=== PATIENT | female | born 1975 | race African-American/Black ===

== ENCOUNTER 2016-07-05 15:47 | Emergency (ER) | payer SELFPAY ==
[2016-07-05] MEDS ORDERED: hydrOXYzine HCL TAB* 25 MG PO ONE (19:04)
[2016-07-05] MEDS ORDERED: Fluconazole 100 MG TAB* TAB PO ONE (19:04)
[2016-07-05 19:42] VITALS: BP 134/88
[2016-07-05] MEDS ORDERED: Nystatin OINT* 15 GM TOPICAL SCH (21:00)
--- NOTE | 2016-07-05 21:18 | ED ---
Van Moses Billy, scribed for Bobby Paz MD on 07/05/16 at 1902 . GI/ HPI - HPI Summary HPI Summary: Patient is a 40 year-old female coming to [facility] presenting with constant, progressive, vaginal discharge and itching for 2 weeks. She states that her symptoms began after a course of antibiotics. She reports an episode of diarrhea but otherwise has no other symptoms such as fever, nausea, or vomiting. Denies history of STD, HIV, or herpes. - History of Current Complaint Chief Complaint: EDUrogenitalProblems Time Seen by Provider: 07/05/16 18:42 Stated Complaint: SWOLLEN/ITCHY VAG Hx Obtained From: Patient Onset/Duration: Started Weeks Ago, Still Present Timing: Constant Severity: Moderate Current Severity: Moderate Pain Intensity: 8 Additional Location for Females: Vulva Pain Characteristics: Burning - itching Associated Signs and Symptoms: Positive: Diarrhea. Negative: Nausea, Vomiting, Fever Aggravating Factor(s): Nothing Alleviating Factor(s): Nothing - Allergy/Home Medications Allergies/Adverse Reactions: Allergies Allergy/AdvReac Type Severity Reaction Status Date / Time Carisoprodol [From Soma] AdvReac Headache Verified 07/05/16 16:01 PMH/Surg Hx/FS Hx/Imm Hx Cardiovascular History: Reports: Hx Hypertension - WELL CONTROLLED Denies: Hx Pacemaker/ICD Respiratory History: Reports: Hx Chronic Obstructive Pulmonary Disease (COPD) GI History: Reports: Hx Irritable Bowel Musculoskeletal History: Reports: Other Musculoskeletal History - RIGHT SHOULDER PAIN, CERVICAL DDD Sensory History: Denies: Hx Contacts or Glasses, Hx Hearing Aid Opthamlomology History: Denies: Hx Contacts or Glasses Psychiatric History: Reports: Hx Anxiety, Hx Depression - MAJOR DEPRESSION DISORDER Denies: Hx Panic Disorder - Surgical History Surgery Procedure, Year, and Place: 1992 D&C, [place]. 2008 [place]OMY, [place]. [place] [facility] [place] HARDWARE REMOVAL- PER PT THERE ARE STILL SOME SCREWS IN HER ANKLE Hx Anesthesia Reactions: No - Immunization History Date of Tetanus Vaccine: 2010 Date of Influenza Vaccine: None Infectious Disease History: No Infectious Disease History: Reports: Hx of Known/Suspected MRSA Denies: Traveled Outside the [place] in Last 30 Days - Family History Known Family History: Positive: Diabetes, Other - GRANDMOTHER HAD MANY STROKES. [place] Negative: Cardiac Disease - Social History Alcohol Use: Occasionally Alcohol Amount: SOCIALLY Hx Substance Use: Yes Substance Use Type: Reports: Marijuana - OCCASIONALLY Substance Use Comment - Amount & Last Used: see consult report Hx Tobacco Use: Yes Smoking Status (MU): Current Every Day Smoker Type: Cigarettes Amount Used/How Often: 5-10 CIGS/DAY Length of Time of Smoking/Using Tobacco: 30 YRS Have You Smoked in the Last Year: Yes Review of Systems Negative: Fever Positive: Diarrhea. Negative: Vomiting, Nausea Positive: discharge, other - vaginal itching All Other Systems Reviewed And Are Negative: Yes Physical Exam Triage Information Reviewed: Yes Vital Signs On Initial Exam: Initial Vitals Temp Pulse Resp BP Pulse Ox 98.1 F 80 16 179/110 100 07/05/16 16:02 07/05/16 16:02 07/05/16 16:02 07/05/16 16:02 07/05/16 16:02 Vital Signs Reviewed: Yes Appearance: Positive: Well-Appearing, Pain Distress - Visibly uncomfortable, has trouble sitting. Eyes: Positive: LINA ENT: Positive: Other - MMM Neck: Positive: Supple, Nontender Respiratory/Lung Sounds: Positive: Clear to Auscultation, Breath Sounds Present. Negative: Rales, Wheezes Cardiovascular: Positive: RRR, Other - No gallops., S1, S2. Negative: Murmur, Rub Abdomen Description: Positive: Nontender, Soft. 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 No signs of fluctuance or abscess, external labia majora slightly thickened. Musculoskeletal: Positive: Other - calves are soft and nontender.. Negative: Edema Left, Edema Right Neurological: Positive: Sensory/Motor Intact Psychiatric: Positive: Affect/Mood Appropriate - logical and coherent AVPU Assessment: Alert Diagnostics - Vital Signs Vital Signs Temp Pulse Resp BP Pulse Ox 07/05/16 16:02 98.1 F 80 16 179/110 100 - Laboratory Lab Statement: Any lab studies that have been ordered have been reviewed, and results considered in the medical decision making process. GIGU Course/Dx - Course Assessment/Plan: She has had 2x weeks of vaginal itching and discomfort. This followed abx use. She denies HIV or DM. We will send her to Dr. Colunga (REHABILITATION PROGRAM COORDINATOR) for follow-up but in the; supportive measures described in detail. She will return for any signs of cellulitis. Otherwise, she will follow-up with her new human resources support specialist. - Diagnoses Provider Diagnoses: Vulvovaginal candidiasis Discharge - Discharge Plan Condition: Good Disposition: HOME Prescriptions: Fluconazole 100 MG TAB* [Diflucan 100 MG TAB*] 100 mg PO DAILY #3 tab Nystatin CREAM* 1 applic TOPICAL TID #1 tube hydrOXYzine HCL TAB* [Atarax TAB*] 25 mg PO TID PRN #20 tab PRN Reason: Itching Patient Education Materials: Vulvovaginal Candidiasis (ED) Referrals: Elie Colunga MD [Medical Doctor] - The documentation as recorded by the Van edwards Billy accurately reflects the service I personally performed and the decisions made by me, Bobby Paz MD.
== END 2016-07-05 19:38 | disposition home or self-care (01) ==
LOC: ED 15:47
DX: B37.3 Candidiasis of vulva and vagina (principal); R19.7 Diarrhea, unspecified
CPT/HCPCS: 99282; A9270-GY

== ENCOUNTER 2016-08-06 19:08 | Observation (INO) | payer SELFPAY ==
[2016-08-06] MEDS ORDERED: Morphine INJ* 2 MG/ML 1 ML SYRINGE IV ONE (22:50)
[2016-08-06 23:29] LABS: Hematocrit 35 % (35-47); Hemoglobin 11.6 g/dl (12.0-16.0); Mean Corpuscular HGB Conc 33 g/dl (31-36); Mean Corpuscular Hemoglobin 30 pg (27-31); Mean Corpuscular Volume 92 fL (80-97); Mean Platelet Volume 8 um3 (7.4-10.4); Red Blood Count 3.84 10^6/ul (4.0-5.4); Red Cell Distribution Width 13 % (10.5-15); White Blood Count 3.6 10^3/ul (3.5-10.8)
[2016-08-06 23:38] LABS: Albumin 3.8 g/dL (3.2-5.2); BUN/Creatinine Ratio 15.8 (8-20); C Reactive Protein 14.51 mg/L (< 5.00); Calcium 9.2 mg/dL (8.6-10.3); EGFR African American 77.3 (>60); EGFR Non-African American 60.1 (>60); Globulin 3.9 g/dL (2-4); Potassium 3.1 mmol/L (3.5-5.0); Total Bilirubin 0.3 mg/dL (0.2-1.0); Total Protein 7.7 g/dL (6.4-8.9)
[2016-08-06] MEDS ORDERED: Iohexol 300* (CONTRAST) 10 ML SDV IV ONE (23:44)
[2016-08-06] MEDS ORDERED: oxyCODONE/Acetamin 5/325 MG* TAB PO ONE (23:44)
[2016-08-07 00:13] LABS: Erythrocyte Sed Rate 66 mm/Hr (0-14)
[2016-08-07] MEDS: Morphine INJ* 4 MG/ML 1 ML SYRINGE IV ONE ×2 (00:48→01:27)
[2016-08-07] MEDS ORDERED: HYDROmorphone* 1 MG/ML 1 ML SYR IV SLOW PU ONE (01:15)
[2016-08-07] MEDS ORDERED: diPHENhydraMINE IV* 50 MG/ML 1 ml VIAL (BENADRYL) IV ONE (01:25)
--- NOTE | 2016-08-07 01:45 | ED ---
Skin Complaint - HPI Summary HPI Summary: Patient arrives to ED with CC of multiple abscesses in the gluteal fold, on the sacral crest, 2 on the leg, 1 on the chin, 1 on the arm and 2 on the labia which have been present for weeks but has been getting worse. She states she has had this issue for 6 months and has been on 3 antibiotics. Last antibiotic >2 weeks ago. She states one course of antibiotics almost cleared up the abscesses, but doesn't know which medication it was. She states they "shrunk" but were still somewhat there. She states they are a 10/10 pain, constant and does not radiate. She has been placing towels and cloths in the area for comfort and to keep the abscesses from draining into the other abscessed openings. Denies fever, chills or other recent illness. No known hx of pilonidal, hidrenitis suppurativa. Unknown MRSA hx. - History of Current Complaint Chief Complaint: EDRashSkinAbscess Time Seen by Provider: 08/06/16 22:22 Stated Complaint: UNABLE TO SIT Hx Obtained From: Patient Onset/Duration: Started Weeks Ago Skin Exposure Onset/Duration: Weeks Ago Timing: Constant Onset Severity: Severe Current Severity: Severe Pain Intensity: 10 Pain Scale Used: 0-10 Numeric Skin Location: Diffuse - 2 raised nodular lesions over bilateral inner thighs without drainage, multiple nodular, non fluctuant in intergluteal fold with purulent and serous fluid drainage, most superficial some with extension into dermal layer, one large tense 2cm at gluteal cleft at sacrum, one raised open lesion over right forearm with drainage x 1 week, one on right side chin, 2 in labia without drainage Character: Pruritus, Pain, Redness, Raised, Painful Aggravating Symptom(s): Clothing, Wet Conditions, Touch Alleviating Symptom(s): Nothing Associated Signs & Symptoms: Drainage - Allergy/Home Medications Allergies/Adverse Reactions: Allergies Allergy/AdvReac Type Severity Reaction Status Date / Time Carisoprodol [From Soma] AdvReac Headache Verified 08/06/16 19:11 PMH/Surg Hx/FS Hx/Imm Hx Previously Healthy: Yes Endocrine/Hematology History: Denies: Hx Diabetes Cardiovascular History: Reports: Hx Hypertension - WELL CONTROLLED Denies: Hx Pacemaker/ICD Respiratory History: Reports: Hx Chronic Obstructive Pulmonary Disease (COPD) GI History: Reports: Hx Irritable Bowel History: Denies: Hx Renal Disease Musculoskeletal History: Reports: Other Musculoskeletal History - RIGHT SHOULDER PAIN, CERVICAL DDD Sensory History: Denies: Hx Contacts or Glasses, Hx Hearing Aid Opthamlomology History: Denies: Hx Contacts or Glasses Psychiatric History: Reports: Hx Anxiety, Hx Depression - MAJOR DEPRESSION DISORDER Denies: Hx Panic Disorder - Surgical History Surgery Procedure, Year, and Place: 1992 D&C, [place]. 2008 [place], [place]. [place] [facility] [place] HARD[place] REMOVAL- PER PT THERE ARE STILL SOME SCREWS IN HER ANKLE Hx Anesthesia Reactions: No - Immunization History Date of Tetanus Vaccine: 2010 Date of Influenza Vaccine: None Infectious Disease History: Yes Infectious Disease History: Reports: Hx of Known/Suspected MRSA Denies: Traveled Outside the [place] in Last 30 Days - Family History Known Family History: Positive: Diabetes, Other - GRANDMOTHER HAD MANY STROKES. [place] Negative: Cardiac Disease - Social History Occupation: Employed Full-time Lives: With Family Alcohol Use: Occasionally Alcohol Amount: SOCIALLY Hx Substance Use: Yes Substance Use Type: Reports: Marijuana - OCCASIONALLY Substance Use Comment - Amount & Last Used: see consult report Hx Tobacco Use: Yes Smoking Status (MU): Current Every Day Smoker Type: Cigarettes Amount Used/How Often: 5-10 CIGS/DAY Length of Time of Smoking/Using Tobacco: 30 YRS Have You Smoked in the Last Year: Yes Review of Systems Constitutional: Negative Eyes: Negative Cardiovascular: Negative Respiratory: Negative Positive: no symptoms reported, see HPI Positive: Arthralgia Positive: Other - 2 raised nodular lesions over bilateral inner thighs without drainage, multiple nodular, non fluctuant in intergluteal fold with purulent and serous fluid drainage, most superficial some with extension into dermal layer, one large tense 2cm at gluteal cleft at sacrum, one raised open lesion over right forearm with drainage x 1 week, one on right side chin, 2 in labia without drainage Neurological: Negative Psychological: Normal All Other Systems Reviewed And Are Negative: Yes Physical Exam Triage Information Reviewed: Yes Vital Signs On Initial Exam: Initial Vitals Temp Pulse Resp BP Pulse Ox 99.4 F 127 18 156/123 99 08/06/16 19:11 08/06/16 19:11 08/06/16 19:11 08/06/16 19:11 08/06/16 19:11 Vital Signs Reviewed: Yes Appearance: Positive: Well-Appearing, Well-Nourished, Pain Distress Skin: Positive: Warm, Other - 2 raised nodular lesions over bilateral inner thighs without drainage, multiple nodular, non fluctuant in intergluteal fold with purulent and serous fluid drainage, most superficial some with extension into dermal layer, one large tense 2cm at gluteal cleft at sacrum, one raised open lesion over right forearm with drainage x 1 week, one on right side chin, 2 in labia without drainage Head/Face: Positive: Normal Head/Face Inspection ENT: Positive: Normal ENT inspection, Hearing grossly normal Neck: Positive: Supple, Nontender Respiratory/Lung Sounds: Positive: Breath Sounds Present Cardiovascular: Positive: RRR Abdomen Description: Positive: Nontender, Soft Pelvic Exam: Positive: mass - 2 small nodules over L labia Neurological: Positive: Alert, Oriented to Person Place, Time, CN Intact II-III , Speech Normal Psychiatric: Positive: Normal Diagnostics - Vital Signs Vital Signs Temp Pulse Resp BP Pulse Ox 08/07/16 01:27 18 08/07/16 01:20 20 08/06/16 23:06 20 08/06/16 21:33 99.4 F 69 16 160/110 100 08/06/16 20:05 99.7 F 82 16 152/101 100 08/06/16 19:11 99.4 F 127 18 156/123 99 - Laboratory Lab Results: Lab Results 08/06/16 08/06/16 Range/Units 23:00 23:00 WBC 3.6 (3.5-10.8) 10^3/ul RBC 3.84 L (4.0-5.4) 10^6/ul Hgb 11.6 L (12.0-16.0) g/dl Hct 35 (35-47) % MCV 92 (80-97) fL MCH 30 (27-31) pg MCHC 33 (31-36) g/dl RDW 13 (10.5-15) % Plt Count 204 (150-450) 10^3/ul MPV 8 (7.4-10.4) um3 Neut % (Auto) 68.2 (38-83) % Lymph % (Auto) 17.4 L (25-47) % [place] % (Auto) 10.3 H (1-9) % Eos % (Auto) 3.1 (0-6) % Baso % (Auto) 1.0 (0-2) % Absolute Neuts (auto) 2.5 (1.5-7.7) 10^3/ul Absolute Lymphs (auto) 0.6 L (1.0-4.8) 10^3/ul Absolute Monos (auto) 0.4 (0-0.8) 10^3/ul Absolute Eos (auto) 0.1 (0-0.6) 10^3/ul Absolute Basos (auto) 0 (0-0.2) 10^3/ul Absolute Nucleated RBC 0 10^3/ul Nucleated RBC % 0.1 ESR 66 H (0-14) mm/Hr Sodium 135 (133-145) mmol/L Potassium 3.1 L (3.5-5.0) mmol/L Chloride 102 (101-111) mmol/L Carbon Dioxide 27 (22-32) mmol/L Anion Gap 6 (2-11) mmol/L BUN 16 (6-24) mg/dL Creatinine 1.01 H (0.51-0.95) mg/dL Est GFR ( Amer) 77.3 (>60) Est GFR (Non-Af Amer) 60.1 (>60) BUN/Creatinine Ratio 15.8 (8-20) Glucose 122 H (70-100) mg/dL Calcium 9.2 (8.6-10.3) mg/dL Total Bilirubin 0.30 (0.2-1.0) mg/dL AST 17 (13-39) U/L ALT 10 (7-52) U/L Alkaline Phosphatase 61 (34-104) U/L C-Reactive Protein 14.51 H (< 5.00) mg/L Total Protein 7.7 (6.4-8.9) g/dL Albumin 3.8 (3.2-5.2) g/dL Globulin 3.9 (2-4) g/dL Albumin/Globulin Ratio 1.0 (1-3) Result Diagrams: 08/07/16 06:31 08/07/16 06:31 Lab Statement: Any lab studies that have been ordered have been reviewed, and results considered in the medical decision making process. - CT No standard instances CT Interpretation: Positive (See Comments) CT Interpretation Completed By: Radiologist - see report Course/Dx - Course Course Of Treatment: Consulted with Dr. Aldrich regarding patient. CT pelvis ordered. See results. Pilonidal likely with infection. Patient states she has not had any luck with 2 outpatient antibiotics, with 1 which cleared up the lesions although she doesn't remember the name of the medication. LABS WNL. No fever. 2 raised nodular lesions over bilateral inner thighs without drainage , multiple nodular, non fluctuant in intergluteal fold with purulent and serous fluid drainage, most superficial some with extension into dermal layer, one large tense 2cm at gluteal cleft at sacrum, one raised open lesion over right forearm with drainage x 1 week, one on right side chin, 2 in labia without drainage. Pain not well controlled with Morphine, benadryl and oxycodone. Spoke with Dr Arevalo at 12:45am. This could be a surgical consult, but could remain an admission for IV abx and pain control. Spoke with Dr. Carlos at 1:05am who agrees to admit. Wound culture taken from right perianal area sent for results. - Differential Diagnoses - Skin Complaint Differential Diagnoses: Abscess, Cellulitis, Urticaria - Diagnoses Provider Diagnoses: Abscess, Pilonidal abscess of cleft - Physician Notifications Instructed by Provider To: Admit As Inpatient Discharge - Discharge Plan Condition: Guarded Disposition: ADMITTED TO [facility]
--- NOTE | 2016-08-07 02:46 | HP ---
H&P (Free Text) History and Physical: PCP: none Date/Time of Evaluation: 08/07/2016 0250 CC: skin infection HPI: Mrs Foster is a 40YO female HX HTN & COPD presents with ~1week of increased itching, pain, & swelling of the intergluteal area associated with fever up to 101F. She reports scant bloody drainage mainly after scratching. She has had similar issues intermittently for ~6months which improve with ABX, but then relapse. CT pelvis was read as concern for abscessed pilonidal cyst. Case was referred to Joseph Arevalo MD surgery who requested Hospitalist admission and agreed to evaluate in the AM. PMedHx HTN COPD depression Allergies Carisoprodol [From Augure] Adverse Reaction (Verified 08/06/16 19:11) Headache Ambulatory Orders Nursing to reconcile. PSurgHx L ankle FX repair section hysterectomy SocHx: 1/2PPD cigarettes, rare alcohol, denies recreational drugs; full code status FamHx: positive for HTN, DM2 ROS: as above, otherwise reviewed and all were negative Constitutional: NAD, normally developed, well-nourished black female vitals: Vital Signs Temp 37.4 C 08/06/16 21:33 Pulse 88 08/07/16 02:00 Resp 18 08/07/16 01:27 BP 171/90 08/07/16 02:00 Pulse Ox 98 08/07/16 02:00 Intake & Output 08/06/16 08/06/16 08/07/16 11:59 23:59 11:59 Intake Total 50 Balance 50 Weight 68.039 kg Intake: IV Fluids 50 HEENM: atraumatic; sclera: non-icteric; hearing: intact; oropharynx: clear Neck: soft tissue: non-tender; thyroid: normal Pulmonary: clear to auscultation bilaterally, good aeration, no accessory muscle use CV: RR/RR, normal S1S2, no carotid bruit, no jugular venous distention, 2+ B DP/ PT, no edema Abdominal: soft, non-distended, non-tender, no rebound/guarding/rigidity, normoactive bowel sounds, no hepatosplenomegaly or masses, no costovertebral angle tenderness; intergluteal fold with too numerous to count partial- thickness excoriations, inferior L medial gluteus with area of painful induration, positive malodor, no overt discharge Musculoskeletal: general: grossly intact; gait: stable Integumental: as above, otherwise normal appearance and texture Psychiatric orientation: AA&O to PPS affect: calm mood: cooperative eye contact: fair to good content: reliable responses: timely insight: fair Testing: Lab Results 08/06/16 08/06/16 Range/Units 23:00 23:00 WBC 3.6 (3.5-10.8) 10^3/ul RBC 3.84 L (4.0-5.4) 10^6/ul Hgb 11.6 L (12.0-16.0) g/dl Hct 35 (35-47) % MCV 92 (80-97) fL MCH 30 (27-31) pg MCHC 33 (31-36) g/dl RDW 13 (10.5-15) % Plt Count 204 (150-450) 10^3/ul MPV 8 (7.4-10.4) um3 Neut % (Auto) 68.2 (38-83) % Lymph % (Auto) 17.4 L (25-47) % [place] % (Auto) 10.3 H (1-9) % Eos % (Auto) 3.1 (0-6) % Baso % (Auto) 1.0 (0-2) % Absolute Neuts (auto) 2.5 (1.5-7.7) 10^3/ul Absolute Lymphs (auto) 0.6 L (1.0-4.8) 10^3/ul Absolute Monos (auto) 0.4 (0-0.8) 10^3/ul Absolute Eos (auto) 0.1 (0-0.6) 10^3/ul Absolute Basos (auto) 0 (0-0.2) 10^3/ul Absolute Nucleated RBC 0 10^3/ul Nucleated RBC % 0.1 ESR 66 H (0-14) mm/Hr Sodium 135 (133-145) mmol/L Potassium 3.1 L (3.5-5.0) mmol/L Chloride 102 (101-111) mmol/L Carbon Dioxide 27 (22-32) mmol/L Anion Gap 6 (2-11) mmol/L BUN 16 (6-24) mg/dL Creatinine 1.01 H (0.51-0.95) mg/dL Est GFR ( Amer) 77.3 (>60) Est GFR (Non-Af Amer) 60.1 (>60) BUN/Creatinine Ratio 15.8 (8-20) Glucose 122 H (70-100) mg/dL Calcium 9.2 (8.6-10.3) mg/dL Total Bilirubin 0.30 (0.2-1.0) mg/dL AST 17 (13-39) U/L ALT 10 (7-52) U/L Alkaline Phosphatase 61 (34-104) U/L C-Reactive Protein 14.51 H (< 5.00) mg/L Total Protein 7.7 (6.4-8.9) g/dL Albumin 3.8 (3.2-5.2) g/dL Globulin 3.9 (2-4) g/dL Albumin/Globulin Ratio 1.0 (1-3) CT pelvis W, personally reviewed: IMPRESSION: Nonspecific presacral 2.4 x 2.2 x 1.8cm complex ovoid subcutaneous process is suspicious for pilonidal cyst, subcutaneous boil or superficial subcutaneous abscess with a moderate amount of surrounding subcutaneous 9 x 7 x 2cm edema consistent with surrounding tissue cellulitis. Impression: 40F presenting with complex abscess ? pilonidal cyst with intractable pain DIAGNOSIS & PLAN Primary pilonidal abscess : IVFs : IV vancomycin pending CX or immunoassay identification : pain control : Joseph Arevalo MD surgery consulted by ED, will evaluate in AM hypoKalemia : replete & recheck Secondary HTN : elevated : continue lisinopril : PRN hydralazine COPD : albuterol nebs PRN Admission Rational: observation for possible pilonidal abscess DVTp: SALINA Code Status: full
[2016-08-07] MEDS ORDERED: Melatonin (NF) 3 MG TAB PO PRN (03:37)
[2016-08-07] MEDS ORDERED: Albuterol 2.5 MG/3 ML NEB.SOL* (0.083%) INH PRN (03:37)
[2016-08-07] MEDS ORDERED: Acetaminophen TAB* 325 MG PO PRN (03:37)
[2016-08-07] MEDS ORDERED: Ondansetron INJ* 2 MG/ML VIAL IV PRN (03:37)
[2016-08-07] MEDS ORDERED: Silver Sulfadiazine 1%* 20 GM TOPICAL ONE (03:44)
[2016-08-07] MEDS ORDERED: Vancomycin per Pharmacy* NOTE FOLLOW UP PRN (03:46)
[2016-08-07] MEDS: Ketorolac INJ* 15 MG/ML 1 ML VIAL IV PRN ×3 (03:54→17:47)
[2016-08-07] MEDS: HYDROmorphone* 1 MG/ML 1 ML SYR IV PRN ×5 (03:55→21:32)
[2016-08-07] MEDS ORDERED: Vancomycin(*) 1,000 MG in NS 0.9% 250 ML* 250 ML IVPB ONE (04:00)
[2016-08-07] MEDS: NS 0.9% 1000 ML* 1,000 ML IV SCH ×2 (04:17→12:20)
[2016-08-07] MEDS: Omeprazole CAP* 20 MG PO SCH (06:09)
[2016-08-07] MEDS: Nicotine Inhaler* 10 MG AMP INH PRN ×2 (06:09→13:35)
[2016-08-07] MEDS: Mouth Piece, Nicotine* 1 EACH CARTRIDGE ONE ×2 (06:11→13:35)
[2016-08-07 07:25] LABS: Hematocrit 32 % (35-47); Hemoglobin 10.7 g/dl (12.0-16.0); Mean Corpuscular HGB Conc 33 g/dl (31-36); Mean Corpuscular Hemoglobin 31 pg (27-31); Mean Corpuscular Volume 93 fL (80-97); Mean Platelet Volume 8 um3 (7.4-10.4); Red Blood Count 3.44 10^6/ul (4.0-5.4); Red Cell Distribution Width 13 % (10.5-15); White Blood Count 4.1 10^3/ul (3.5-10.8)
[2016-08-07 07:37] LABS: BUN/Creatinine Ratio 13.8 (8-20); Calcium 8.5 mg/dL (8.6-10.3); EGFR Non-African American 65.3 (>60)
--- NOTE | 2016-08-07 07:58 | RAD ---
CLINICAL HISTORY: Sacral decubitus ulcer COMPARISON: CT dated February 07, 2014 TECHNIQUE: Multiple contiguous axial CT scans were obtained of the lower abdomen and pelvis in the prone position after the administration of intravenous contrast. Coronal and sagittal multiplanar reformations are submitted for review. The patient received 91 mL Omnipaque 300. FINDINGS: The visualized portions of the solid abdominal organs are grossly normal in appearance. The visualized portions of the kidneys are normal in appearance without focal mass, calcification or signs of hydronephrosis. There are fluid-filled loops of transverse colon seen. Small bowel is not pathologically dilated. There is no gross retroperitoneal or mesenteric lymphadenopathy in the visualized portions of the abdomen. The mildly calcified lower abdominal aorta is normal in course and diameter. The arterial and venous structures of the pelvis and upper thighs are normal in size and morphology. There is infiltration of the subcutaneous fat overlying the sacrum. Overlying the right buttock (image 46) there is increased attenuation of the dermis and superficial subcutaneous tissue. There is no evidence of "tunneling" or drainable subcutaneous abscess. There are no signs of osteomyelitis in the visualized bones. IMPRESSION: Superficial induration of the subcutaneous tissue overlying the buttock and sacrum as described above.
[2016-08-07] MEDS ORDERED: Pneumococcal Vac Polyvalent* 0.5 ML VIAL IM ONE (09:00)
[2016-08-07] MEDS ORDERED: Potassium Chlor TAB* 20 MEQ TAB.ER PO ONE (09:00)
[2016-08-07] MEDS ORDERED: KCL 20 MEQ/100 ML IVPREMIX* 20 MEQ/100 ML BAG IV ONE (10:00)
--- NOTE | 2016-08-07 10:55 | PN ---
Progress Note - Progress Note Note: Brief Surgery Note: (consult dictated) S: 6 mo hx of recurrent buttock and perineal boils (previous + MRSA), now w/ 1 wk hx of worsening pain and swelling in the upper gluteal cleft area. There has been no drainage from this area. She has felt feverish. There is a past + HIV test which she did not want to talk about, stating that it was taken w/o her consent, and her is unaware. O: Vital Signs - 8 hr 08/07/16 08/07/16 08/07/16 03:00 03:30 03:55 Temperature Pulse Rate 74 65 Respiratory 18 Rate Blood Pressure 176/96 148/95 (mmHg) O2 Sat by Pulse 100 100 Oximetry 08/07/16 08/07/16 08/07/16 04:00 04:30 05:00 Temperature Pulse Rate 65 63 Respiratory Rate Blood Pressure 156/95 172/95 156/107 (mmHg) O2 Sat by Pulse 100 100 Oximetry 08/07/16 08/07/16 08/07/16 05:22 05:38 05:48 Temperature 98.5 F 98.5 F Pulse Rate 59 59 Respiratory 18 16 16 Rate Blood Pressure 144/98 144/98 (mmHg) O2 Sat by Pulse 100 100 Oximetry 08/07/16 08/07/16 08/07/16 06:12 06:22 07:51 Temperature 98.1 F Pulse Rate 55 Respiratory 18 18 16 Rate Blood Pressure 129/79 (mmHg) O2 Sat by Pulse 100 Oximetry PE: area as described above w/ multiple skin lesions c/w abscesses at various stages of evolution. Most of these area already open, some draining. There is one area just inferior to the R buttock which is fluctuant. I offered to drain this at bedside w/ local, but she refused, preferring to use warm compresses and let this drain spontaneously. The area at the top of the gluteal cleft is indurated and very tender, but w/o fluctuance. It does not appear similar to the other areas inferiorly. CT was reviewed. It is not ready for I&D. A/P: mult likely MRSA abscesses in the buttocks and perineal areas; separate pre -sacral area, likely evolving abscess which may require drainage at some point. Would continue w/ IV abx, pain control, and local measures. Will d/w Dr. Arevalo and follow.
[2016-08-07] MEDS: Silver Sulfadiazine 1%* 20 GM TOPICAL SCH ×2 (13:02→21:23)
[2016-08-07] MEDS: Vancomycin(*) 1,000 MG in NS 0.9% 250 ML* 250 ML IVPB SCH ×2 (13:12→21:13)
[2016-08-07] MEDS ORDERED: Mouth Piece, Nicotine* 1 EACH CARTRIDGE ONE (13:33)
--- NOTE | 2016-08-07 17:23 | PN ---
Subjective Date of Service: 08/07/16 Interval History: . Patient evaluated at the bedside. She reports she is having pain at the top of her left glute, reports is feels very swollen and tender. Pt denies fever or chills. Reports good appetite with no N/V/D. Patient was open about discussing her diagnoses of HIV. She broke down and was very tearful. She reports her and family does not know and wants to keep it that way for now. She is not close to her family in [facility] where she grew up. She has only been for a year and is worried her would leave her. She reports she uses condom when sexually active with her . She reports she has "lost weight" the last 6 months, reports recurrent wound and abscess on glutes. She is very upset about getting tested without her consent and wishes she didnt know. She has refused care by ID since being diagnosed but now agrees to meet with Dr. Ewing and start therapy. She is worried about health insurance and coverage of treatment. Objective Active Medications: Acetaminophen (Tylenol Tab*) 650 mg PO Q6H PRN PRN Reason: FEVER/PAIN Albuterol (Ventolin 2.5 Mg/3 Ml Neb.Patricia*) 2.5 mg INH Q2H PRN PRN Reason: SOB/WHEEZING Hydromorphone HCl (Dilaudid Iv*) 1 mg IV Q3H PRN PRN Reason: PAIN Last Admin: 08/07/16 13:25 Dose: 1 mg Sodium Chloride (Ns 0.9% 1000 Ml*) 1,000 mls @ 125 mls/hr IV PER RATE [facility] Last Admin: 08/07/16 12:20 Dose: 125 mls/hr Vancomycin HCl 1,000 mg/ (Sodium Chloride) 250 mls @ 166.667 mls/hr IVPB Q8H [facility] Last Admin: 08/07/16 13:12 Dose: 166.667 mls/hr Ketorolac Tromethamine (Toradol Inj*) 15 mg IV Q6H PRN PRN Reason: PAIN Last Admin: 08/07/16 09:51 Dose: 15 mg Melatonin (Melatonin (Nf)) 3 mg PO BEDTIME PRN; Protocol PRN Reason: Sleep Nicotine (Nicotine Inhaler*) 10 mg INH Q2H PRN PRN Reason: CRAVING Last Admin: 08/07/16 13:35 Dose: 10 mg Omeprazole (Prilosec Cap*) 20 mg PO DAILY@0600 [facility] Last Admin: 08/07/16 06:09 Dose: 20 mg Ondansetron HCl (Zofran Inj*) 4 mg IV Q6H PRN PRN Reason: NAUSEA Last Admin: 08/07/16 05:20 Dose: 4 mg Pharmacy Consult (Vancomycin Per Pharmacy*) 1 note FOLLOW UP . PRN PRN Reason: PER PROTOCOL Pharmacy Profile Note (Vancomycin Trough Check) 1 note FOLLOW UP 0430 [facility] Stop: 08/08/16 04:59 Silver Sulfadiazine (Silvadine 1%*) 1 applic TOPICAL BID [facility] Last Admin: 08/07/16 13:02 Dose: 1 applic Vital Signs 08/07/16 08/07/16 08/07/16 03:55 04:00 04:30 Temperature Pulse Rate 65 63 Respiratory 18 Rate Blood Pressure 156/95 172/95 (mmHg) O2 Sat by Pulse 100 100 Oximetry 08/07/16 08/07/16 08/07/16 05:00 05:22 05:38 Temperature 98.5 F Pulse Rate 59 Respiratory 18 16 Rate Blood Pressure 156/107 144/98 (mmHg) O2 Sat by Pulse 100 Oximetry 08/07/16 08/07/16 08/07/16 05:48 06:12 06:22 Temperature 98.5 F Pulse Rate 59 Respiratory 16 18 18 Rate Blood Pressure 144/98 (mmHg) O2 Sat by Pulse 100 Oximetry 08/07/16 08/07/16 08/07/16 07:51 08:00 09:48 Temperature 98.1 F Pulse Rate 55 Respiratory 16 18 18 Rate Blood Pressure 129/79 (mmHg) O2 Sat by Pulse 100 Oximetry 08/07/16 08/07/16 08/07/16 10:48 12:13 13:25 Temperature 98.1 F Pulse Rate 57 Respiratory 18 16 18 Rate Blood Pressure 134/87 (mmHg) O2 Sat by Pulse 98 Oximetry 08/07/16 08/07/16 14:25 16:13 Temperature 97.9 F Pulse Rate 60 Respiratory 16 16 Rate Blood Pressure 134/85 (mmHg) O2 Sat by Pulse 100 Oximetry Oxygen Devices in Use Now: None Appearance: 40 yo female laying in bed A+O x3 in NAD Eyes: No Scleral Icterus, PERRLA Ears/Nose/Mouth/Throat: NL Teeth, Lips, Gums, Mucous Membranes Moist Neck: NL Appearance and Movements; NL JVP Respiratory: Symmetrical Chest Expansion and Respiratory Effort, Clear to Auscultation Cardiovascular: NL Sounds; No Murmurs; No JVD, RRR, No Edema Abdominal: NL Sounds; No Tenderness; No Distention Extremities: No Edema, No Clubbing, Cyanosis Skin: - - multiple wounds on buttock in different stages of healing - left top glute has red, tender firm area, no drainge noted. Neurological: Alert and Oriented x 3, NL Sensation, NL Gait, NL Muscle Strength and Tone Lines/Tubes/Other Access: Clean, Dry and Intact Peripheral IV Nutrition: Taking PO's Result Diagrams: 08/07/16 06:31 08/07/16 06:31 Additional Lab and Data: Lab Results 08/06/16 08/06/16 Range/Units 23:00 23:00 WBC 3.6 (3.5-10.8) 10^3/ul RBC 3.84 L (4.0-5.4) 10^6/ul Hgb 11.6 L (12.0-16.0) g/dl Hct 35 (35-47) % MCV 92 (80-97) fL MCH 30 (27-31) pg MCHC 33 (31-36) g/dl RDW 13 (10.5-15) % Plt Count 204 (150-450) 10^3/ul MPV 8 (7.4-10.4) um3 Neut % (Auto) 68.2 (38-83) % Lymph % (Auto) 17.4 L (25-47) % [place] % (Auto) 10.3 H (1-9) % Eos % (Auto) 3.1 (0-6) % Baso % (Auto) 1.0 (0-2) % Absolute Neuts (auto) 2.5 (1.5-7.7) 10^3/ul Absolute Lymphs (auto) 0.6 L (1.0-4.8) 10^3/ul Absolute Monos (auto) 0.4 (0-0.8) 10^3/ul Absolute Eos (auto) 0.1 (0-0.6) 10^3/ul Absolute Basos (auto) 0 (0-0.2) 10^3/ul Absolute Nucleated RBC 0 10^3/ul Nucleated RBC % 0.1 ESR 66 H (0-14) mm/Hr Sodium 135 (133-145) mmol/L Potassium 3.1 L (3.5-5.0) mmol/L Chloride 102 (101-111) mmol/L Carbon Dioxide 27 (22-32) mmol/L Anion Gap 6 (2-11) mmol/L BUN 16 (6-24) mg/dL Creatinine 1.01 H (0.51-0.95) mg/dL Est GFR ( Amer) 77.3 (>60) Est GFR (Non-Af Amer) 60.1 (>60) BUN/Creatinine Ratio 15.8 (8-20) Glucose 122 H (70-100) mg/dL Calcium 9.2 (8.6-10.3) mg/dL Total Bilirubin 0.30 (0.2-1.0) mg/dL AST 17 (13-39) U/L ALT 10 (7-52) U/L Alkaline Phosphatase 61 (34-104) U/L C-Reactive Protein 14.51 H (< 5.00) mg/L Total Protein 7.7 (6.4-8.9) g/dL Albumin 3.8 (3.2-5.2) g/dL Globulin 3.9 (2-4) g/dL Albumin/Globulin Ratio 1.0 (1-3) Assess/Plan/Problems-Billing Assessment: 40 yo female with PMH of HTN, COPD, + HIV test in which pt refuses to believe or receive treatment, hx of recurrent buttock & perineal boils (hx of MRSA) who presented to the emergency department on 08/07 with c/o increased itching pain & swelling of the intergluteal area with fever 101. - Patient Problems (1) Abscess Comment: - recurrent gluteal abscess with hx of + MRSA wound cx in the past. Surgical team following - plan for warm compresses and re-velauated need for I&D tomorrow. Send wound cx when drains - continue Vanco - ID consult (2) HIV (human immunodeficiency virus infection) Comment: - dx in 11/2015 and has refused treatment or acknowlegdement. Now agrees to meet with Dr. Ewing. and family do not know. - Check CD4 count - social work consult (3) COPD (chronic obstructive pulmonary disease) Comment: - controlled. continue nebs and inhalers prn (4) Hypertension Comment: - controlled. Restart home lisinopril and norvasc (5) Full code status (6) DVT prophylaxis Comment: - TEDs. Encourage ambulation Status and Disposition: inpatient with abscess with possible need for I&D. Surgery following. Home when medically stable
--- NOTE | 2016-08-07 21:01 | CONS ---
SURGICAL CONSULT NOTE: DATE OF CONSULT: 08/07/16 ATTENDING SURGEON: Shaquille Arevalo MD CHIEF COMPLAINT: Pilonidal abscess? HISTORY OF PRESENT ILLNESS: This is a 40-year-old female who for the past 6 months has had intermittent sores in the buttock and perineal area. These would typically and drain spontaneously. She was seen in the ED in June for the same and cultures were positive for MRSA. She has also had MRSA positive cultures from other areas including both axillae. In addition to pain and drainage in these areas, she reports pain in the upper gluteal cleft, which prompted the current presentation. This has been increasingly painful and swollen over the past week, though has not had any associated drainage thus far. She has felt feverish. She was admitted last evening to the hospitalist service and cultures were taken and IV vancomycin initiated. PAST MEDICAL HISTORY: Significant for hypertension. She has had a positive HIV test in the recent past, but did not want to discuss it saying it that she was tested without her consent and that her is not aware of the test results. PAST SURGICAL HISTORY: Subtotal hysterectomy for benign disease and x1. CURRENT MEDICATIONS: None (primarily related to lack of primary care provider and followup). DRUG ALLERGIES: SOMA (GI upset). PHYSICAL EXAMINATION: Vital Signs: Temperature 98.1, blood pressure 129/79, pulse 55, respirations 16. General: Well-nourished, well-developed - [place] female, in mild distress. Stated that pain has been as high as 10-1/2/ 10. Exam is otherwise limited to the area described above including multiple skin lesions consistent with MRSA abscesses at various stages of evolution in the groin and both buttocks and the perineal area. Most of these are already open and some draining. There is one area just inferior to the right buttock, which is fluctuant and tender. This was recommended for I and D, but the patient refused stating that she preferred to use warm compresses and let this drain spontaneously. The area of the superior gluteal cleft is indurated and tender over the area measuring approximately 6 cm but without any actual skin lesions. There is no fluctuance. It does not appear similar to the other areas inferiorly. The CT scan obtained on admission was reviewed, which showed fatty infiltration in that area, but no defined abscess. IMPRESSION: Multiple likely MRSA positive abscesses in the buttocks and perineal areas most having spontaneously drained and requiring no further surgical intervention. The upper gluteal cleft area may represent an evolving abscess, which may require drainage at some point. At the present time, would continue with local wound measures, pain control, and IV antibiotics. Case will be discussed with Dr. Arevalo and we will follow with recheck in the morning and I and D as indicated. BRYSON LAN CC: [facility]* [id number]/[facility] #: [id number] ALEKSEY
[2016-08-07] MEDS ORDERED: diPHENhydraMINE PO* 25 MG PO PRN (21:57)
[2016-08-08] MEDS: HYDROmorphone* 1 MG/ML 1 ML SYR IV PRN ×2 (00:41→04:07)
[2016-08-08] MEDS: Ketorolac INJ* 15 MG/ML 1 ML VIAL IV PRN (00:43)
[2016-08-08] MEDS: NS 0.9% 1000 ML* 1,000 ML IV SCH (00:45)
[2016-08-08] MEDS ORDERED: Vancomycin Trough Check NOTE FOLLOW UP SCH (04:30)
[2016-08-08 04:54] LABS: Hematocrit 30 % (35-47); Hemoglobin 10.1 g/dl (12.0-16.0); Mean Corpuscular HGB Conc 33 g/dl (31-36); Mean Corpuscular Hemoglobin 31 pg (27-31); Mean Corpuscular Volume 93 fL (80-97); Mean Platelet Volume 7 um3 (7.4-10.4); Red Blood Count 3.28 10^6/ul (4.0-5.4); Red Cell Distribution Width 13 % (10.5-15); White Blood Count 3.7 10^3/ul (3.5-10.8)
[2016-08-08 05:09] LABS: BUN/Creatinine Ratio 9.9 (8-20); Calcium 8.2 mg/dL (8.6-10.3); EGFR African American 99.7 (>60); EGFR Non-African American 77.5 (>60); Potassium 3.7 mmol/L (3.5-5.0)
[2016-08-08] MEDS: Omeprazole CAP* 20 MG PO SCH (05:37)
[2016-08-08] MEDS: Vancomycin(*) 1,000 MG in NS 0.9% 250 ML* 250 ML IVPB SCH ×2 (05:38→12:58)
[2016-08-08] MEDS ORDERED: oxyCODONE/Acetamin 5/325 MG* TAB ONE (08:57)
[2016-08-08] MEDS ORDERED: oxyCODONE/Acetamin 5/325 MG* TAB PO PRN ×3 (08:58→09:15)
[2016-08-08] MEDS ORDERED: amLODIPine TAB* 5 MG PO SCH (09:00)
[2016-08-08] MEDS ORDERED: Lisinopril TAB* 5 MG PO SCH (09:00)
--- NOTE | 2016-08-08 09:02 | PN ---
Subjective Date of Service: 08/08/16 Interval History: pt reports her wound/abscess feels much better today and today is the first day she can sit on her bottom without intense pain. She denies fever/chills. Reports good appetite, no N/V/D. She reports hx of vaginal yeast infection about a month ago and was prescribed 3 diflucan which she reports took care of the white discharge but she has had continued vaginal itching. She denies any ulcers or pain in her mouth. Objective Active Medications: Acetaminophen (Tylenol Tab*) 650 mg PO Q6H PRN PRN Reason: FEVER/PAIN Albuterol (Ventolin 2.5 Mg/3 Ml Neb.Patricia*) 2.5 mg INH Q2H PRN PRN Reason: SOB/WHEEZING Amlodipine Besylate (Norvasc Tab*) 5 mg PO QAM COUNTS INCLUDE 234 BEDS AT THE [facility] Diphenhydramine HCl (Benadryl Po*) 25 mg PO Q6H PRN PRN Reason: ITCHING Last Admin: 08/07/16 22:59 Dose: 25 mg Hydromorphone HCl (Dilaudid Iv*) 1 mg IV Q3H PRN PRN Reason: PAIN Last Admin: 08/08/16 04:07 Dose: 1 mg Sodium Chloride (Ns 0.9% 1000 Ml*) 1,000 mls @ 125 mls/hr IV PER RATE COUNTS INCLUDE 234 [facility]EDS [facility] Last Admin: 08/08/16 00:45 Dose: 125 mls/hr Vancomycin HCl 1,000 mg/ (Sodium Chloride) 250 mls @ 166.667 mls/hr IVPB Q8H COUNTS INCLUDE 234 BEDS AT THE [facility] Last Admin: 08/08/16 05:38 Dose: 166.667 mls/hr Ketorolac Tromethamine (Toradol Inj*) 15 mg IV Q6H PRN PRN Reason: PAIN Last Admin: 08/08/16 00:43 Dose: 15 mg Lisinopril (Prinivil Tab*) 2.5 mg PO DAILY COUNTS INCLUDE 234 BEDS AT THE [facility] Melatonin (Melatonin (Nf)) 3 mg PO BEDTIME PRN; Protocol PRN Reason: Sleep Nicotine (Nicotine Inhaler*) 10 mg INH Q2H PRN PRN Reason: CRAVING Last Admin: 08/07/16 13:35 Dose: 10 mg Omeprazole (Prilosec Cap*) 20 mg PO DAILY@0600 [facility]S [facility] 234 [facility]EDS [facility] Last Admin: 08/08/16 05:37 Dose: 20 mg Ondansetron HCl (Zofran Inj*) 4 mg IV Q6H PRN PRN Reason: NAUSEA Last Admin: 08/07/16 05:20 Dose: 4 mg Pharmacy Consult (Vancomycin Per Pharmacy*) 1 note FOLLOW UP . PRN PRN Reason: PER PROTOCOL Silver Sulfadiazine (Silvadine 1%*) 1 applic TOPICAL BID [facility] Last Admin: 08/07/16 21:23 Dose: Not Given Vital Signs 08/08/16 08/08/16 08/08/16 00:20 00:41 00:55 Temperature 99.2 F 98.7 F Pulse Rate 53 71 Respiratory 16 18 Rate Blood Pressure 164/97 148/83 (mmHg) O2 Sat by Pulse 100 Oximetry 08/08/16 08/08/16 08/08/16 00:59 01:41 04:07 Temperature Pulse Rate Respiratory 16 16 16 Rate Blood Pressure (mmHg) O2 Sat by Pulse Oximetry 08/08/16 08/08/16 04:17 05:07 Temperature 98.4 F Pulse Rate 67 Respiratory 16 16 Rate Blood Pressure 138/89 (mmHg) O2 Sat by Pulse 100 Oximetry Oxygen Devices in Use Now: None Appearance: 40 yo female laying in bed in NAD. A+O x3 Eyes: No Scleral Icterus, PERRLA Ears/Nose/Mouth/Throat: NL Teeth, Lips, Gums, Clear Oropharnyx, Mucous Membranes Moist, - - no mouth ulcers or white patches noted Neck: NL Appearance and Movements; NL JVP Respiratory: Symmetrical Chest Expansion and Respiratory Effort, Clear to Auscultation Cardiovascular: NL Sounds; No Murmurs; No JVD, RRR, No Edema Abdominal: NL Sounds; No Tenderness; No Distention Extremities: No Edema, No Clubbing, Cyanosis Skin: - - upper left glute Neurological: Alert and Oriented x 3, NL Sensation, NL Gait, NL Muscle Strength and Tone Result Diagrams: 08/08/16 04:41 08/08/16 04:41 Additional Lab and Data: Lab Results 08/06/16 08/06/16 Range/Units 23:00 23:00 WBC 3.6 (3.5-10.8) 10^3/ul RBC 3.84 L (4.0-5.4) 10^6/ul Hgb 11.6 L (12.0-16.0) g/dl Hct 35 (35-47) % MCV 92 (80-97) fL MCH 30 (27-31) pg MCHC 33 (31-36) g/dl RDW 13 (10.5-15) % Plt Count 204 (150-450) 10^3/ul MPV 8 (7.4-10.4) um3 Neut % (Auto) 68.2 (38-83) % Lymph % (Auto) 17.4 L (25-47) % [place] % (Auto) 10.3 H (1-9) % Eos % (Auto) 3.1 (0-6) % Baso % (Auto) 1.0 (0-2) % Absolute Neuts (auto) 2.5 (1.5-7.7) 10^3/ul Absolute Lymphs (auto) 0.6 L (1.0-4.8) 10^3/ul Absolute Monos (auto) 0.4 (0-0.8) 10^3/ul Absolute Eos (auto) 0.1 (0-0.6) 10^3/ul Absolute Basos (auto) 0 (0-0.2) 10^3/ul Absolute Nucleated RBC 0 10^3/ul Nucleated RBC % 0.1 ESR 66 H (0-14) mm/Hr Sodium 135 (133-145) mmol/L Potassium 3.1 L (3.5-5.0) mmol/L Chloride 102 (101-111) mmol/L Carbon Dioxide 27 (22-32) mmol/L Anion Gap 6 (2-11) mmol/L BUN 16 (6-24) mg/dL Creatinine 1.01 H (0.51-0.95) mg/dL Est GFR ( Amer) 77.3 (>60) Est GFR (Non-Af Amer) 60.1 (>60) BUN/Creatinine Ratio 15.8 (8-20) Glucose 122 H (70-100) mg/dL Calcium 9.2 (8.6-10.3) mg/dL Total Bilirubin 0.30 (0.2-1.0) mg/dL AST 17 (13-39) U/L ALT 10 (7-52) U/L Alkaline Phosphatase 61 (34-104) U/L C-Reactive Protein 14.51 H (< 5.00) mg/L Total Protein 7.7 (6.4-8.9) g/dL Albumin 3.8 (3.2-5.2) g/dL Globulin 3.9 (2-4) g/dL Albumin/Globulin Ratio 1.0 (1-3) Assess/Plan/Problems-Billing Assessment: 40 yo female with PMH of HTN, COPD, + HIV test in which pt refuses to believe or receive treatment, hx of recurrent buttock & perineal boils (hx of MRSA) who presented to the emergency department on 08/07 with c/o increased itching pain & swelling of the intergluteal area with fever 101. - Patient Problems (1) Abscess Comment: - recurrent gluteal abscess with hx of + MRSA wound cx in the past. Improvement is affected area today. Surgical team following and no need for I&D and can go home from a surgical standpoint - Wound cx still pending - no organisms seen at this point - ID consult - okk to DC to home on Bactrim DS BID x 10 days (2) HIV (human immunodeficiency virus infection) Comment: - dx in 11/2015 and has refused treatment or acknowledgment. Now agrees to meet with Dr. Ewing. and family do not know and pt refuses to tell them at this point. - Check CD4 count - still pending - pt refusing SW consult - Plan to f/u with ID next week. (3) COPD (chronic obstructive pulmonary disease) Comment: - controlled. continue nebs and inhalers prn (4) Hypertension Comment: - controlled. Restart home lisinopril and norvasc (5) Tobacco abuse Comment: - smoking cessation - nicotine supplementation (6) Full code status (7) DVT prophylaxis Comment: - TEDs. Encourage ambulation Status and Disposition: inpatient Surgery and ID following. Home today
[2016-08-08] MEDS: Silver Sulfadiazine 1%* 20 GM TOPICAL SCH (09:10)
--- NOTE | 2016-08-08 09:29 | PN ---
Progress Note - Progress Note Note: Surgery Progress: S: Feels better. The lower R Buttock lesion drained spontaneously yesterday and feels better. She still has some pain in the area of the upper gluteal cleft. O: Vital Signs - 8 hr 08/08/16 08/08/16 08/08/16 01:41 04:07 04:17 Temperature 98.4 F Pulse Rate 67 Respiratory 16 16 16 Rate Blood Pressure 138/89 (mmHg) O2 Sat by Pulse 100 Oximetry 08/08/16 08/08/16 05:07 09:03 Temperature Pulse Rate Respiratory 16 16 Rate Blood Pressure (mmHg) O2 Sat by Pulse Oximetry Gluteal cleft area: swelling (increased, and more defined) w/ induration and tenderness (less vs 3/2); buttock lesions appear to be improving, including the one that has drained in the inferior R buttock. C&S still pend A: mult likely MRSA + buttock and perineal lesions, improving; upper gluteal cleft infection, evolving, but not presently requiring I&D. P: cont abx (tx to po); warm compresses; office f/u w/ us next wk; discussed w/ Dr. Arevalo
[2016-08-08 12:14] VITALS: BP 165/101
--- NOTE | 2016-08-08 15:55 | CONS ---
CONSULTATION REPORT: DATE OF CONSULT: DATE OF DICTATION: 08/08/16 REQUESTING PROVIDER: Harshad High NP. CONSULTING SERVICE: Infectious Disease. REASON FOR CONSULTATION: Untreated HIV and sacral abscess. IMPRESSION: 1. Sacral area of induration, tenderness and warmth. CT shows soft tissue edema, suspect evolving abscess likely due to methicillin-resistant Staphylococcus aureus. She has had Methicillin-resistant Staphylococcus aureus infection in the past. 2. 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 3. HIV antibody positive. CD4 count pending though she is lymphopenic. RECOMMENDATIONS: 1. Bactrim Double Strength tablet by mouth twice daily for 2 more days. She has surgical followup in case this does become drainable collection. 2. We will add CD4 count and HIV antibody and she is amenable to treatment. We discussed basics of HIV treatment and she is willing to follow up with me this week in the office for further recommendations. She will be on Bactrim in the meantime to cover Pneumocystis prophylaxis in the event that her CD4 count is less than 200. HISTORY OF PRESENT ILLNESS: This is a 40-year-old woman with COPD and depression, admitted with buttock pain. She has had a number of recurrent cutaneous MRSA infections in the past, sometimes requiring drainage. She has had pain in her left sacrum for a few days, it is getting worse. She had tried analgesic pain medication without much improvement. She came to the hospital on August 06. She had no leukocytosis. She had a low-grade fever. A CT scan was done that showed diffuse edema in that area without deeper collection. She has been on vancomycin here. She has had some improvement in pain. No fevers. She has been followed by surgical service. She is going to be discharge today and follow up with surgeons on Thursday. She will go home on oral antibiotics. She had an HIV antibody drawn in November 2015, 1 and 2 antibody positive but confirmed her HIV 1 antibody is positive. She had declined followup at the time of the testing for HIV treatment. She has had no opportunistic infections. She does not know who she may have contracted the infection from. She wants to be discreet about the diagnosis. She has never had tuberculosis that she knows of. PAST MEDICAL HISTORY: 1. Depression. 2. COPD. 3. Hypertension. MEDICATIONS: 1. Dilaudid p.r.n. 2. Lisinopril. 3. Melatonin. 4. Omeprazole. 5. Vancomycin 1 g every 8 hours. 6. Amlodipine. 7. Oxycodone. ALLERGIES: CARISOPRODOL. SOCIAL HISTORY: She lives in [place]. No travel. No sick contact. She is . FAMILY HISTORY: No recurrent infections. REVIEW OF SYSTEMS: All negative except as noted above. PHYSICAL EXAM: Vital Signs: Temperature is 36.6, heart rate 70, respiratory rate 16, blood pressure 160/100, O2 sat 100% on room air. In general, she is awake, in no distress. Neurologically, she is oriented x3, follows all commands. HEENT: There is no conjunctival hemorrhage. Oropharynx without lesions. Neck: Neck was supple without nuchal rigidity. No cervical, supraclavicular, inguinal, axillary, or epitrochlear lymphadenopathy. Heart: Regular rate and rhythm without murmurs, rubs, or gallops. Lungs: Clear to auscultation bilaterally. Abdomen: Soft, nontender, nondistended without hepatosplenomegaly. Skin: There is no rash or splinter hemorrhage. Over her left midline sacrum area, there is induration, warmth, and tenderness, there is no fluctuance or crepitus, it is about 3 cm area. LABORATORY DATA: Creatinine is 0.8, ALT 10, white blood cell count 3.7, hemoglobin 10, platelets 150. Thank you for asking me to see Ms. Foster in consultation. Please see impression and recommendations outlined above, which [place]. [id number]/[facility] #: [id number] ALEK[place]Y
[2016-08-08 20:46] LABS: % CD3 48 % (58-86); % CD4 2 % (32-64); % CD8 45 % (13-40); Absolute CD45 Count 0.56 thou/mcL (0.82-2.84)
--- NOTE | 2016-08-12 09:53 | DS ---
DISCHARGE SUMMARY: DATE OF ADMISSION: 08/07/16 DATE OF DISCHARGE: 08/08/16 PROVIDER: Skip Soto NP. ATTENDING PHYSICIAN: Dr. Gutierrez *(report dictated by Skip Soto NP). PRIMARY CARE PROVIDER: Dr. Jose Jean. INFECTIOUS DISEASE: Dr. Ewing. SUR[facility]: [facility]. PRIMARY DIAGNOSES: 1. 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 2. Human immunodeficiency virus diagnosed in November 2015 in which the patient has refused treatment or acknowledgement up until this hospitalization. 3. HIV - CD4 count pending SECONDARY DIAGNOSES: 1. Hypertension. 2. Chronic obstructive pulmonary disease. 3. Current tobacco abuse. DISCHARGE MEDICATIONS: 1. Acetaminophen 650 mg p.o. q. 4 hours p.r.n. 2. Norvasc 5 mg p.o. q.a.m. 3. Lisinopril 2.5 mg p.o. q.a.m. 4. Percocet 5/325 one tab p.o. q. 6 hours p.r.n. 5. Bactrim DS 800/160 mg one tab p.o. b.i.d. x10 days. HISTORY OF PRESENT ILLNESS AND HOSPITAL COURSE: Please see history and physical by Dr. Ron for full admission details; but, in summary, this is a 40-year-old female who was diagnosed with HIV in November 2015, who has refused treatment or acknowledgment of HIV infection, current tobacco abuse with history of COPD, hypertension, and history of recurrent MRSA abscesses in her intragluteal area, who presented to the emergency department on 08/07/16 with complaint of one week of increased pain and swelling in the intragluteal area with a fever of 101. She reports that she has had similar issues intermittently for the past 6 months which improved on antibiotics, then relapses. She has [facility] by [facility] in the past and has had positive MRSA wound cultures previously. In the emergency department, she underwent a pelvis CT with contrast which showed superficial induration of the subcutaneous tissue overlying the buttocks and sacrum as described above. There was concern initially for pilonidal abscess. The patient was admitted to the hospitalist service and started on IV vancomycin. Wound culture was sent which ended up growing MRSA and strep agalactiae. The patient was seen in consultation by [facility], Dr. Arevalo, surgeon, did recommend initially recommend an I and D for a left superior gluteal cleft which was noted to be indurated and tender, measuring approximately 6 cm without any actual skin lesions with no fluctuation noticed, but the patient refused, stating she preferred to use warm compresses and let it drain spontaneously and which the surgeon agreed to. It was thought this was not a pilonidal abscess. The area was reevaluated the next morning, which showed much improvement in tenderness and it was noted that the lesion did drain spontaneously. The surgical services stated from their perspective, could be discharged home and follow up with them next week for close monitoring. On reevaluation in the morning, the patient had much improvement in the area of the noted area for concern for abscess, it appeared to have drained spontaneously. The patient was also seen by Infectious Disease physician, Dr. Ewing, who had contact with the patient after she was diagnosed initially with HIV as he received the referral after she was tested in the emergency department and returned as a positive test. He tried to reach out to the patient multiple times since November as well as notify the health department, and the patient has refused to acknowledge that she has HIV as well as to follow up with Dr. Ewing's. I discussed this with the patient at length as I did have concerns that her recurrent wounds and abscesses are most likely due to her HIV infection, and I worry that it is possible that her CD4 count is low and she could possibly have AIDS. I discussed with the patient that I was going to add on the CD4 count and the patient agreed to this. As well, she broke down, very teary, stating her family, which is her and her teenage children, have no idea of her diagnoses. She and I discussed this at length as, not only could her be at risk for laura HIV, but it's possible that he has it as well and may not be aware. Again, the patient has refused to share that she is HIV positive with her and/or family. The patient was very adamant about this. I asked social work to see the patient as well as the circuit rider, who both spoke with the patient and gave the patient support and resources in the community. In regards to Dr. Ewing, the patient agreed to follow up with Dr. Ewing next week. Dr. Ewing saw the patient in the hospital and has plans to follow up with her next week. He recommended Bactrim for her gluteal wounds. The presents with no primary care provider on admission, as well as no insurance. Again, she was set up with social work who was going to meet with the patient in the hospital, but the patient was threatening to leave against medical advice and was being very impatient, wanting to be discharged. I did try talking with the patient into staying; however, she was getting ready to walk out the door, and I wanted the patient to leave with her prescriptions as well as a good discharge plan, and discharged the patient home with the understanding that the Medicaid rifle case repairer is going to follow up with the patient to help her with her Medicaid application. As well, our service will set the patient up with a new primary care provider. Today, on evaluation, the patient reports she feels much better with resolution of her pain. She denies any fevers or chills. She does report over the past 6 months she has lost approximately 10 pounds. She denies any thrush or lesions in her mouth. Reports that she did have a vaginal yeast infection a month ago, which is now resolved. She reports that she has good appetite, and denies any fevers and chills except for just prior to admission. Her CD4 count was pending on dictation, but it is noted now as this is a late dictation that her CD4 count is 11. I did discuss this with Dr. Jose Jean today over the phone. DISCHARGE PLAN: 1. Stable, to be discharged home. 2. [facility], 08/14/16 at 11: [address] Jose Jean, 08/11/16 at 1:[address] Ewing, 08/12/16 at 9 a.m. 5. The patient was set up with [place] from Medicaid to apply for health insurance , as well as she was given resources for the [facility] for further support. TIME SPENT: Approximately 60 minutes were spent on this dictation. SKIP SOTO NP CC: Dr. Jose Jean; BRYSON Brown* [id number]/[facility] #: [id number] [facility] HOSPITALShirley
== END 2016-08-08 14:05 | disposition home or self-care (01) ==
LOC: ED 19:08 → SSU 08-07 03:34
PROVIDERS: ADMIT Hospitalist; ATTEND Hospitalist
DX: L05.01 Pilonidal cyst with abscess (principal); I10 Essential (primary) hypertension; B20 Human immunodeficiency virus [HIV] disease; J44.9 Chronic obstructive pulmonary disease, unspecified; Z88.8 Allergy status to other drugs, medicaments and biological substances; F17.210 Nicotine dependence, cigarettes, uncomplicated
CPT/HCPCS: 36415; 72193; 80048; 80053; 80202; 85025; 85652; 86140; 86359; 86360; 87070; 87077; 87184; 87186; 87205; 90732; 96365; 96366; 96375; 96376; 99285; A9270-GY; G0378; J1170; J1200; J1885; J2270; J2405; J3370; J3480; Q9967

== ENCOUNTER 2016-11-25 15:58 | Emergency (ER) | payer OTHER ==
[2016-11-25] MEDS ORDERED: Sulfamethox/Trimethoprim DS 800/160* TAB PO ONE (19:05)
--- NOTE | 2016-11-25 19:05 | ED ---
Upper Extremity Pain - HPI Summary HPI Summary: 41F presents with potential infected left thumb for a week. She states she had a hang nail there and she kept cutting away parts of it. She states a hard area formed and then she started to notice some swelling around the nail that was darkening in color. She also has a callous on her foot that she has been shaving with a stone. She has had surgery on her feet. - History of Current Complaint Chief Complaint: EDExtremityLower Stated Complaint: INFECTED THUMB Time Seen by Provider: 11/25/16 17:18 - Allergies/Home Medications Allergies/Adverse Reactions: Allergies Allergy/AdvReac Type Severity Reaction Status Date / Time Carisoprodol [From Soma] AdvReac Headache Verified 08/06/16 19:11 PMH/Surg Hx/FS Hx/Imm Hx Endocrine/Hematology History: Denies: Hx Diabetes Cardiovascular History: Reports: Hx Hypertension - WELL CONTROLLED Denies: Hx Pacemaker/ICD Respiratory History: Reports: Hx Chronic Obstructive Pulmonary Disease (COPD) GI History: Reports: Hx Gastroesophageal Reflux Disease, Hx Irritable Bowel History: Denies: Hx Renal Disease Musculoskeletal History: Reports: Hx Orthopedic Injury - ankle surgery, Other Musculoskeletal History - RIGHT SHOULDER PAIN, CERVICAL DDD Sensory History: Denies: Hx Contacts or Glasses, Hx Hearing Aid Opthamlomology History: Denies: Hx Contacts or Glasses Psychiatric History: Reports: Hx Anxiety, Hx Depression - MAJOR DEPRESSION DISORDER Denies: Hx Panic Disorder - Surgical History Surgery Procedure, Year, and Place: 1992 [place]&C, [place]. 2008 [place]ERECTOMY, [place]. L ANKLE ORIF 07/23 [facility] [place]. Apr HARDWARE REMOVAL- PER PT THERE ARE STILL SOME SCREWS IN HER ANKLE Hx Anesthesia Reactions: No - Immunization History Date of Tetanus Vaccine: 2010 Date of Influenza Vaccine: None Infectious Disease History: No Infectious Disease History: Reports: Hx of Known/Suspected MRSA Denies: Traveled Outside the [place] in Last 30 Days - Family History Known Family History: Positive: Diabetes, Other - GRANDMOTHER HAD MANY STROKES. [place] Negative: Cardiac Disease - Social History Alcohol Use: Occasionally Alcohol Amount: SOCIALLY Hx Substance Use: Yes Substance Use Type: Reports: Marijuana Substance Use Comment - Amount & Last Used: see consult report Hx Tobacco Use: Yes Smoking Status (MU): Current Every Day Smoker Type: Cigarettes Amount Used/How Often: 5-10 CIGS/DAY Length of Time of Smoking/Using Tobacco: 30 YRS Have You Smoked in the Last Year: Yes Review of Systems Negative: Fever Negative: Chest Pain Negative: Shortness Of Breath Positive: Edema - left thumb All Other Systems Reviewed And Are Negative: Yes Physical Exam Triage Information Reviewed: Yes Vital Signs On Initial Exam: Initial Vitals Temp Pulse Resp BP Pulse Ox 97.8 F 87 18 164/105 100 11/25/16 16:01 11/25/16 16:01 11/25/16 16:01 11/25/16 16:01 11/25/16 16:01 Vital Signs Reviewed: Yes Appearance: Positive: Well-Appearing Skin: Positive: Warm, Dry, Other - callous on left thumb with surrounding swelling most consistent with paronychia, noninfected callous to left sole of foot Head/Face: Positive: Normal Head/Face Inspection Eyes: Positive: Normal, EOMI, LINA, Conjunctiva Clear ENT: Positive: Normal ENT inspection, Pharynx normal, TMs normal Respiratory/Lung Sounds: Positive: Clear to Auscultation, Breath Sounds Present Cardiovascular: Positive: Normal, RRR Musculoskeletal: Positive: Strength/ROM Intact - left finger and foot Procedures - Incision and Drainage Site: left thumb paronchyia Anesthesia: Digital Instrument(s): Scalpel Diagnostics - Vital Signs Vital Signs Temp Pulse Resp BP Pulse Ox 11/25/16 16:03 97.8 F 82 16 164/105 100 11/25/16 16:01 97.8 F 87 18 164/105 100 - Laboratory Lab Statement: Any lab studies that have been ordered have been reviewed, and results considered in the medical decision making process. Course/Dx - Course Course Of Treatment: 41F presents with potential infected left thumb for a week. She states she had a hang nail there and she kept cutting away parts of it. She also has a callous on her foot that she has been shaving with a stone. She has had surgery on her feet. On exam has parnochyia which drainage. callus on foot does not look infected told to follow up with podiatry. placed on bactrim. patient understands and agrees with plan - Diagnoses Differential Diagnosis/HQI/PQRI: Positive: Other - paronychia, pulpitis, callus Provider Diagnoses: Paronychia, Callus of foot Discharge - Discharge Plan Condition: Good Disposition: HOME Prescriptions: Sulfamethox/Trimethoprim DS* [Bactrim DS 800/160 TAB*] 1 tab PO BID #13 tab Patient Education Materials: Paronychia (ED) Referrals: Jose Jean MD [Primary Care Provider] - Additional Instructions: Take antibiotic twice a day for 7 days Perform warm soaks for area Return to ED if develop any new or worsening symptoms
[2016-11-25 19:15] VITALS: BP 162/105
== END 2016-11-25 19:32 | disposition home or self-care (01) ==
LOC: ED 15:58
DX: L03.012 Cellulitis of left finger (principal); L84 Corns and callosities; R60.0 Localized edema; F17.210 Nicotine dependence, cigarettes, uncomplicated
CPT/HCPCS: 10060; 99282; A9270-GY

== ENCOUNTER 2017-07-07 01:51 | Emergency (ER) | payer MEDICAID, OTHER ==
[2017-07-07] MEDS ORDERED: oxyCODONE/Acetamin 5/325 MG* TAB PO ONE ×2 (02:19→02:28)
[2017-07-07] MEDS ORDERED: Sulfamethox/Trimethoprim DS 800/160* TAB PO ONE (02:19)
--- NOTE | 2017-07-07 03:20 | ED ---
Gurjit Moses Thomas, scribed for Joseph Trinidad on 07/07/17 at 0226 . Skin Complaint - HPI Summary HPI Summary: This patient is a 41 year old F BIBA to ED with a chief complaint of abscesses in the right armpit since a week and a half ago. Pt states that she has three abscesses in right armpit that have spread and made her right breast swollen. She states that it could possibly be caused by the use of Delg[place]. The patient rates the pain 7/10 in severity. Symptoms aggravated by palpations to the area. Symptoms alleviated by nothing. Patient reports sensitivity and pain in both breasts. Patient denies discharge from her breasts. Pt has a history of MRSA and HTN. - History of Current Complaint Chief Complaint: EDGeneral Time Seen by Provider: 07/07/17 02:07 Stated Complaint: BREAST SWELLING UP, 3 ABCESS LT ARM Hx Obtained From: Patient Onset/Duration: Started Weeks Ago, Still Present Skin Exposure Onset/Duration: Weeks Ago Timing: Constant, Lasting Weeks Current Severity: Moderate Pain Intensity: 7 Pain Scale Used: 0-10 Numeric Skin Location: Arm - right armpit Aggravating Symptom(s): Touch Alleviating Symptom(s): Nothing Associated Signs & Symptoms: Tenderness - both breasts - Additional Pertinent History Primary Care Physician: NATALIA - Allergy/Home Medications Allergies/Adverse Reactions: Allergies Allergy/AdvReac Type Severity Reaction Status Date / Time Carisoprodol [From Soma] AdvReac Headache Verified 07/07/17 02:12 PMH/Surg Hx/FS Hx/Imm Hx Endocrine/Hematology History: Denies: Hx Diabetes Cardiovascular History: Reports: Hx Hypertension - WELL CONTROLLED Denies: Hx Pacemaker/ICD Respiratory History: Reports: Hx Chronic Obstructive Pulmonary Disease (COPD) GI History: Reports: Hx Gastroesophageal Reflux Disease, Hx Irritable Bowel History: Denies: Hx Renal Disease Musculoskeletal History: Reports: Hx Orthopedic Injury - ankle surgery, Other Musculoskeletal History - RIGHT SHOULDER PAIN, CERVICAL DDD Sensory History: Denies: Hx Contacts or Glasses, Hx Hearing Aid Opthamlomology History: Denies: Hx Contacts or Glasses Psychiatric History: Reports: Hx Anxiety, Hx Depression - MAJOR DEPRESSION DISORDER Denies: Hx Panic Disorder - Surgical History Surgery Procedure, Year, and Place: 1992 D&C, [place]. 2008 [place]OMY, [place]. L ANKLE ORIF 07/23 [facility]. Apr HARDWARE REMOVAL- PER PT THERE ARE STILL SOME SCREWS IN HER ANKLE Hx Anesthesia Reactions: No - Immunization History Date of Tetanus Vaccine: 2010 Date of Influenza Vaccine: has not received Infectious Disease History: Yes Infectious Disease History: Reports: Hx of Known/Suspected MRSA Denies: Traveled Outside the [place] in Last 30 Days - Family History Known Family History: Positive: Diabetes, Other - GRANDMOTHER HAD MANY STROKES. [place] Negative: Cardiac Disease - Social History Alcohol Use: Occasionally Alcohol Amount: SOCIALLY Hx Substance Use: Yes Substance Use Type: Reports: Marijuana Substance Use Comment - Amount & Last Used: see consult report Hx Tobacco Use: Yes Smoking Status (MU): Current Every Day Smoker Type: Cigarettes Amount Used/How Often: 5-10 CIGS/DAY Length of Time of Smoking/Using Tobacco: 30 YRS Have You Smoked in the Last Year: Yes Review of Systems Negative: Fever Skin: Other - pain, sensitivity in both breasts, swelling in the right breast Positive: Other - abscesses in the right armpit All Other Systems Reviewed And Are Negative: Yes Physical Exam - Summary Physical Exam Summary: Appearance: Well appearing, no pain distress Skin: warm, dry, reflects adequate perfusion, swelling in the right axilla (5x5 , tender, form and consistency, no fluctuance) Breast exam: normal Head/face: normal Eyes: EOMI, LINA ENT: normal Neck: supple, non-tender Respiratory: CTA, breath sounds present Cardiovascular: RRR, pulses symmetrical Abdomen: non-tender, soft Bowel: present Musculoskeletal: normal, strength/ROM intact Neuro: normal, sensory motor intact, A&Ox3, no neurological deficits of arms Triage Information Reviewed: Yes Vital Signs On Initial Exam: Initial Vitals Temp Pulse Resp BP Pulse Ox 98.4 F 63 15 191/119 99 07/07/17 01:56 07/07/17 01:56 07/07/17 01:56 07/07/17 01:56 07/07/17 01:56 Vital Signs Reviewed: Yes Diagnostics - Vital Signs Vital Signs Temp Pulse Resp BP Pulse Ox 07/07/17 01:56 98.4 F 63 15 191/119 99 - Laboratory Lab Statement: Any lab studies that have been ordered have been reviewed, and results considered in the medical decision making process. Course/Dx - Course Assessment/Plan: This patient is a 41 year old F BIBA to ED with a chief complaint of abscesses in the right armpit since a week and a half ago. In the ED course the patient was given Percocet. The patient is diagnosed with abscesses in the right axilla. The patient is instructed to follow up with Dr. Arevalo. - Diagnoses Provider Diagnoses: Abscess of right axilla Discharge - Discharge Plan Condition: Stable Disposition: HOME Prescriptions: Ibuprofen TAB* [Motrin TAB* 600 MG] 600 mg PO Q8H PRN #20 tab MDD 3 PRN Reason: Pain oxyCODONE/Acetamin 5/325 MG* [Percocet 5/325 TAB*] 1 tab PO Q8H PRN #10 tab MDD 3 PRN Reason: Pain oxyCODONE/Acetamin 5/325 MG* [Percocet 5/325 TAB*] 1 tab PO Q4H PRN #8 tab MDD 6 PRN Reason: Pain Sulfamethox/Trimethoprim DS* [Bactrim DS 800/160 TAB*] 1 tab PO BID #20 tab Patient Education Materials: Abscess (ED) Forms: *Work Release Referrals: Shaquille Arevalo MD [Medical Doctor] - 1 Week (Follow up with surgery within 1 week. ) Additional Instructions: RETURN TO THE EMERGENCY DEPARTMENT FOR CHANGING OR WORSENING SYMPTOMS. The documentation as recorded by the Gurjit edwards Thomas accurately reflects the service I personally performed and the decisions made by Amos oleary Emmanuel.
[2017-07-07 03:46] VITALS: BP 170/104
== END 2017-07-07 03:44 | disposition home or self-care (01) ==
LOC: ED 01:51
DX: L02.411 Cutaneous abscess of right axilla (principal); F17.210 Nicotine dependence, cigarettes, uncomplicated; Z88.8 Allergy status to other drugs, medicaments and biological substances
CPT/HCPCS: 99282; A9270-GY

== ENCOUNTER 2017-08-06 11:56 | Emergency (ER) | payer SELFPAY ==
--- OUTSIDE RECORDS SUMMARY | 2017-08-06 12:16 | XMS REPORT ---
:1975 External Reference #:[id number] Author Organization [facility] Address [address] [address] Phone [phone] Care Team Providers Name Role Phone Jose Jean MD Primary Care Physician Unavailable Payers Type Date Identification Numbers Payment Provider Subscriber Commercial Effective: Policy Number: [id number] Claudio Iverson Sample 2016 Expires: 2017 Group Number: [id number] [address] PayID: [id number] [place] [address] Medigap Part B Effective: 2016 Policy Number: [id number] Medicaid Adalgisaa Sample Expires: 2016 Group Name: 1 1 [address] PayID: [id number] [place] [address] Workers Onset: 2014 Policy Number: [place] Adrien Sample Compensation [id number] Claims Group Name: [id number] [address] [address] PayID: [id number] [place] [address] Problems Date Description Provider Status Onset: 08/13/2016 Candidiasis of mouth associated Jose Jean Active with AIDS Zeinab,FACP Onset: 07/17/2014 Closed trimalleolar fracture Paul Medina M.D. Active Onset: 07/17/2014 Arthralgia of the ankle and/or Paul Medina M.D. Active foot Onset: 11/20/2014 [facility] Traumatic Paul Medina M.D. 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 Cigarette Use Light tobacco smoker (10 or fewer cigarettes/day) ETOH Use Denies alcohol use Smoking Light tobacco smoker (10 or fewer cigarettes/day) Recreational Drug Use Denies Drug Use Exercise Type/Frequency Does not exercise General Hx Text 2 teenagers Allergies, Adverse Reactions, Alerts Date Description Reaction Status Severity Comments 07/17/2014 Soma active Medications Medication Date Status Form Strength Qnty SIG Indications Ordering Provider Lisinopril-Hydr 07/15/ Active Tablets 10-12.5mg 30tab 1 by mouth Harley Moise ochlorothiazide 2017 s every day [facility] Gyne-Lotrimin 3 07/15/ Active Cream 2% 21gm 1 pv qd 3 Jose 2018 days Yumiko Jean M.D.,FACP Fluconazole 10/30/ Active Tablets 200mg 7tabs 1 by mouth B37.3 Evangelista 2016 every day Yumiko Ewing M.D. Tivicay 09/12/ Active Tablets 50mg 30tab 1 by mouth B20 Evangelista 2016 s every day Yumiko Ewing M.D. Descovy 09/12/ Active Tablets 200-25mg 30tab 1 by mouth B20 Evangelista 2016 s every day Yumiko Ewing M.D. Bactrim DS / Active Tablets 800-160mg 1 by mouth Unknown 0000 twice a day Ibuprofen / Active Tablets 600mg 1 by mouth Unknown 0000 three times a day as needed Ciclopirox 10/30/ Hx Solution 8% 13.2m apply to 1 Evangelista 2017 - l affected DSagar 10/30/ fingernail Luis Ewing twice daily Zeinab Ketoconazole 10/30/ Hx Cream 2% 30gm apply to [facility] 2016 area along sheyla [place] Zeinab,FACP twice daily Fluconazole 10/03/ Hx Tablets 200mg 5tabs 1 by mouth Evangelista 2017 - every day x D. 10/30/ 5 days Bridger 2016 M.D. Sulfamethoxazol 10/03/ Hx Tablets 800-160mg 30tab 1 by mouth B20 Evangelista e/Trimethoprim 2017 s once daily D. DS Zeinab Ewing Fluconazole 10/02/ Hx Tablets 100mg 7tabs every day Jose 2016 - for 7 days Yumiko Jean, 10/03/ Zeinab,FACP 2016 Citalopram 09/12/ Hx Tablets 20mg 30tab 1/2 tab by F41.9 Evangelista Hydrobromide 2017 - s mouth daily D. 10/30/ for 7 days Bridger2016 then 1 by Zeinab mouth every day Acyclovir 09/12/ Hx Tablets 400mg 30tab take 1 R21 Evangelista 2016 - tablet by D. 07/07/ mouth twice surendra2017 a day M.D. Sulfamethoxazol 08/18/ Hx Tablets 400-80mg 30tab 1 by mouth B20 Evangelista e-Trimethoprim 2016 - s every day D. Jefry2016 M.D. Sulfamethoxazol 08/18/ Hx Tablets 400-80mg 30tab 1 by mouth B20 Evangelista e-Trimethoprim 2016 - s every day D. 10/03/ 2016 M.D. Nystatin 08/11/ Hx Suspension [id number] 250ml swish and Evangelista 2017 - t/ML swallow 5ml D. 10/29/ four times Bridger2016 a day M.D. Fluconazole 08/11/ Hx Tablets 100mg 7tabs every day Jose 2016 - for 7 days Yumiko Jean, 08/18/ Zeinab,MEME 2016 Bactrim DS 08/08/ Hx Tablets 800-160mg 20tab 1 by mouth Other 2017 - s twice a day Ordering 08/20/ Provider 2017 Oxycodone-Aceta 08/08/ Hx Tablets 5-325mg 30tab 1 tab by Jose stahl 2017 - s mouth every D. Ted, 10/30/ 4 hours as M.D.,FACP 2017 needed for pain. Acetaminophen 08/08/ Hx Tablets ER 650mg 30tab Not Taking Other ER 2017 - s 1 tab by Ordering 08/11/ mouth q4 Provider 2017 hours as needed pain Voltaren 08/29/ Hx Gel 1% 300g apply 2 T84.84xA Jonatan 2016 - grams Mg, 08/17/ topically M.D. 2016 three times a day Codeine Sulfate 08/29/ Hx Tablets 30mg 90tab one by S82.842S Jonatan 2016 - s mouth every Mg, 08/11/ 8 hours as M.D. 2016 needed Codeine 06/13/ Hx Tablets 300-30mg 45tab one by S82.842S Jonatan Phosphate/Aceta 2015 - s mouth every Mg, minophen 08/29/ 8 hours as M.D. 2015 needed Mupirocin 05/01/ Hx Ointment 2% 66gm apply to B95.62 Evangelista 2014 - both D. 08/17/ nostrils Bridger2016 twice a day M.D. for 5 days Hibiclens 05/01/ Hx Liquid 4% 236un apply from Evangelista 2014 - its neck down D. 08/17/ qd for 5 [facility] days, let M.D. dry for 1-2 minutes before rinsing off (use same days you are using mupirocin) OTC Oxycodone HCL 04/17/ Hx Tablets 5mg 40tab 1-2 by T84.84xA Jonatan 2014 - mouth four Mg, 08/11/ times a day M.D. 2016 as needed Xarelto 07/17/ Hx Tablets 10mg 20tab Not Taking Paul 2014 - s p.o every d Jose Maria 08/11/ x 2 weeks Adam 2016 M.D. Docusate Sodium 07/17/ Hx Capsules 100mg 60cap Not Taking1 Paul 2014 - s by mouth Jose Maria 08/17/ twice a day Adam 2016 M.D. Oxycontin / Hx Tab ER 12H 20mg by mouth Paul 0000 - Abuse-Det every 12 Jose Maria 01/06/ hours Adam 2014 M.D. Oxycodone-Aceta / Hx Tablets 5-325mg take 1 to 2 Paul minophen 0000 - tablets by Jose Maria 01/06/ mouth every 2014 6 to 8 M.D. hours as needed pain Oxycodone-Aceta / Hx Tablets 5-325mg 1-2 tabs by Unknown minophen 0000 - mouth every 4-6 hours 2017 as needed for pain Immunizations CPT Code Status Date Vaccine Lot # [id number] Given 07/08/2017 Pneumococcal Conjugate Vaccine 13 Valent For [id number] Intramuscular Use Vital Signs Date Vital Result Comment 07/15/2017 Weight 165.00 lb Heart Rate 86 /min BP Systolic Sitting 170 mmHg BP Diastolic Sitting 90 mmHg BP Systolic Recheck 180 mmHg BP Diastolic Recheck 100 mmHg Body Temperature 97.0 F O2 % BldC Oximetry 97 % 07/10/2017 Body Temperature 97.8 F 07/08/2017 Height 69 inches 5'9" Weight 168.38 lb Heart Rate 72 /min BP Systolic Sitting 138 mmHg BP Diastolic Sitting 98 mmHg Respiratory Rate 14 /min Body Temperature 98.7 F BMI (Body Mass Index) 24.9 kg/m2 10/30/2016 Height 69 inches 5'9" Weight 150.00 lb Heart Rate 60 /min BP Systolic Sitting 128 mmHg BP Diastolic Sitting 84 mmHg Respiratory Rate 14 /min Body Temperature 98.2 F BMI (Body Mass Index) 22.1 kg/m2 09/12/2016 Height 69 inches 5'9" Weight 142.50 lb Heart Rate 72 /min BP Systolic Sitting 150 mmHg BP Diastolic Sitting 98 mmHg Respiratory Rate 13 /min Body Temperature 96.5 F BMI (Body Mass Index) 21.0 kg/m2 08/26/2016 Heart Rate 80 /min BP Systolic 152 mmHg BP Diastolic 96 mmHg Respiratory Rate 16 /min Body Temperature 95.3 F 08/21/2016 Heart Rate 76 /min BP Systolic 138 mmHg BP Diastolic 86 mmHg Respiratory Rate 16 /min Body Temperature 98.5 F 08/18/2016 Weight 140.25 lb Heart Rate 81 /min BP Systolic Sitting 140 mmHg BP Diastolic Sitting 90 mmHg Body Temperature 98.9 F O2 % BldC Oximetry 95 % 08/18/2016 Height 69 inches 5'9" Weight 140.25 lb Heart Rate 100 /min BP Systolic Sitting 128 mmHg BP Diastolic Sitting 88 mmHg Respiratory Rate 14 /min Body Temperature 98.1 F BMI (Body Mass Index) 20.7 kg/m2 08/15/2016 Heart Rate 84 /min Respiratory Rate 18 /min Body Temperature 97.8 F 08/14/2016 Heart Rate 84 /min Respiratory Rate 18 /min Body Temperature 97.6 F 08/13/2016 Height 69.5 inches 5'9.50" Weight 141.00 lb Heart Rate 72 /min BP Systolic 138 mmHg BP Diastolic 90 mmHg Respiratory Rate 16 /min Body Temperature 97.1 F BMI (Body Mass Index) 20.5 kg/m2 08/11/2016 Weight 141.50 lb Heart Rate 82 /min BP Systolic Sitting 152 mmHg BP Diastolic Sitting 94 mmHg Body Temperature 95.8 F 08/30/2015 Height 69 inches 5'9" Weight 165.00 lb Pain Level 6 BMI (Body Mass Index) 24.4 kg/m2 06/29/2015 Height 69 inches 5'9" Weight 165.00 lb Pain Level 6 BMI (Body Mass Index) 24.4 kg/m2 06/13/2015 Height 69 inches 5'9" Weight 165.00 lb Pain Level 5 BMI (Body Mass Index) 24.4 kg/m2 04/17/2015 Height 69 inches 5'9" Weight 165.00 lb Heart Rate 73 /min BP Systolic 134 mmHg BP Diastolic 95 mmHg BMI (Body Mass Index) 24.4 kg/m2 03/08/2015 Height 69 inches 5'9" Weight 165.00 lb Pain Level 6 BMI (Body Mass Index) 24.4 kg/m2 11/20/2014 Height 69 inches 5'9" Weight 165.00 lb Pain Level 0 BMI (Body Mass Index) 24.4 kg/m2 10/16/2014 Height 69 inches 5'9" Weight 165.00 lb Pain Level 3 BMI (Body Mass Index) 24.4 kg/m2 09/18/2014 Height 69 inches 5'9" Weight 170.00 lb Pain Level 0 BMI (Body Mass Index) 25.1 kg/m2 09/04/2014 Height 69 inches 5'9" Weight 170.00 lb Pain Level 0 BMI (Body Mass Index) 25.1 kg/m2 08/09/2014 Height 69 inches 5'9" Weight 170.00 lb Body Temperature 95.8 F BMI (Body Mass Index) 25.1 kg/m2 07/31/2014 Height 69 inches 5'9" Weight 170.00 lb Pain Level 8 BMI (Body Mass Index) 25.1 kg/m2 07/17/2014 Height 69 inches 5'9" Weight 170.00 lb BMI (Body Mass Index) 25.1 kg/m2 Results Test Date Test Result H/L Range Note Wound 07/08/2017 Wound/Misc SEE RESULT BELOW 1, 2 Culture/Sensi Culture-Gram Stain HIV-1 Rna QNT By 11/25/2016 HIV-1 Rna (PCR) 40 copies/mL Undetected 3 PCR Sli CD4/CD8 T-Cell 11/25/2016 Absolute CD45 Count 0.94 thou/mcL 0.82-2.84 Count % CD3 65 % 58-86 % CD4 9 % 32-64 % CD8 55 % 13-40 CD3 607 cells/L 550-2202 CD4 81 cells/L 365-1437 CD8 514 cells/L 145-846 H/S Ratio 0.2 >=0.9 CD4 Reviewed By See Comment 4 CBC Auto Diff 11/25/2016 White Blood Count 3.9 10^3/uL 3.5-10.8 Red Blood Count 4.13 10^6/uL 4.0-5.4 Hemoglobin 12.9 g/dL 12.0-16.0 Hematocrit 40 % 35-47 Mean Corpuscular Volume 96 fL 80-97 Mean Corpuscular Hemoglobin 31 pg 27-31 Mean Corpuscular HGB Conc 33 g/dL 31-36 Red Cell Distribution Width 16 % High 10.5-15 Platelet Count 244 10^3/uL 150-450 Mean Platelet Volume 8 um3 7.4-10.4 Abs Neutrophils 2.0 10^3/uL 1.5-7.7 Abs Lymphocytes 1.3 10^3/uL 1.0-4.8 Abs Monocytes 0.3 10^3/uL 0-0.8 Abs Eosinophils 0.2 10^3/uL 0-0.6 Abs Basophils 0.1 10^3/uL 0-0.2 Abs Nucleated RBC 0.01 10^3/uL Granulocyte % 51.7 % 38-83 Lymphocyte % 33.7 % 25-47 Monocyte % 7.2 % 1-9 Eosinophil % 5.7 % 0-6 Basophil % 1.7 % 0-2 Nucleated Red Blood Cells % 0.2 Quantiferon Gold TB 11/25/2016 M tuberculosis by Quantiferon Negative Negative 5 TB Ag minus Nil Result -0.02 IU/mL TB Mitogen minus Nil Result > 10.00 IU/mL TB Nil Result 0.16 IU/mL 6 Laboratory test finding 11/25/2016 Syphillis Igg W/Reflex Nonreactive Nonreactive 7 RPR Hepatitis C Antibody Nonreactive Nonreactive Comp Metabolic Panel 11/25/2016 Sodium 137 mmol/L 133-145 Potassium 3.6 mmol/L 3.5-5.0 Chloride 106 mmol/L 101-111 Co2 Carbon Dioxide 25 mmol/L 22-32 Anion Gap 6 mmol/L 2-11 Glucose 108 mg/dL High 70-100 Blood Urea Nitrogen 16 mg/dL 6-24 Creatinine 1.11 mg/dL High 0.51-0.95 BUN/Creatinine Ratio 14.4 8-20 Calcium 9.1 mg/dL 8.6-10.3 Total Protein 7.4 g/dL 6.4-8.9 Albumin 3.9 g/dL 3.2-5.2 Globulin 3.5 g/dL 2-4 Albumin/Globulin Ratio 1.1 1-3 Total Bilirubin 0.30 mg/dL 0.2-1.0 Alkaline Phosphatase 39 U/L 34-104 Alt 11 U/L 7-52 Ast 15 U/L 13-39 Egfr Non- 53.6 >60 Egfr 69.0 >60 8 Laboratory test finding 04/23/2015 Surgical Pathology SEE RESULT BELOW 9 1 [id number] SEE RESULT BELOW Name: SAMPLEADRIEN : [address]: Juan José Patel MD Acct: [id number] Unit: [id number] AGE: 41 Location: [facility] Re07/08/17 SEX: F Status: REG REF SPEC: [id number] INDIRA: 07/08/[address]: Juan José Patel MD REQ: [id number] RECD: 07/08/17 STATUS: COMP [facility] DR: Evangelista Ewing MD _ S[facility]: Culture Stain COMMENTS: [id number] QUERIES: Specimen Description RIGHT AXILLA ABSCESS Procedure Result Reported Site Wound/Misc Gram Stain Final 07/08/17- 1423 ML 2+ Neutrophils 1+ Epithelial Cells 3+ Gram Positive Cocci in Clusters, resembling Staph 1+ Gram Positive Bacilli Wound/Misc Culture Final 07/10/17- 1057 ML Organism 1 MRSA Quantity 3+ Consistent with previous results. 1. MRSA M.I.C. RX --------- ------ Penicillin >=0.5 R Clindamycin <=0.25 S Erythromycin >=8 R Gentamicin <=0.5 S Linezolid 2 S Nitrofurantoin <=16 S Oxacillin >=4 R * Quinupristin/Dalfopristin 0.5 S Rifampin <=0.5 S Tetracycline <=1 S Doxycycline - Deduced S CONTINUED ON NEXT PAGE * ML=Testing performed at Main Lab DEPARTMENT OF PATHOLOGY, [address] [place] [address] Rodri Yost M.D. Director JESSA # [id number] Patient: ADRIEN FOSTER [id number] (Continued) Specimen: [id number] Collected: 07/08/17-1099 Received: 07/08/17-1202 (Continued) Procedure Result Reported Site Wound/Misc Culture Final (continued) 07/10/17- 105 1. MRSA (continued) M.I.C. RX --------- ------ * Minocycline - Deduced S Trimethoprim/Sulfamethoxazole <=10 S Vancomycin 1 S Imipenem-Deduced R * Ampicillin/Sulbactam-Deduced R Cefazolin-Deduced R * These antibiotics are not available in the [facility] Formulary Contact the Microbiology Department for any additional antibiotic reporting. * ML - MAIN LAB ([facility]) . END OF REPORT * ML=Testing performed at Main Lab DEPARTMENT OF PATHOLOGY, [address] [place] [address] Rodri Yost M.D. Director [facility] # [id number] 3 Result in log copies/mL is 1.61. ADDITIONAL INFORMATION The quantification range of this assay is 20 to 10,000,000 copies/mL (1.30 log copies/mL to 7.00 log copies/mL). Testing was performed by the KATELIN AmpliPrep/KATELIN TaqMan HIV-1 Test version 2.0 ([employer] This test has been modified from the keeper head's instructions. Its performance characteristics were determined by [facility] in a manner consistent with CLIA requirements. This test has not been cleared or approved by the U.S. Food and Drug Administration. Test Performed by: [address] [address] 4 RESULT: Reviewed by: Terrell Murray, Ph.D., D(CARLOS), FAAAAI ADDITIONAL INFORMATION This test was developed using an analyte specific reagent. Its performance characteristics were determined by [facility] in a manner consistent with CLIA requirements. This test has not been cleared or approved by the U.S. Food and Drug Administration. Test Performed by: [facility] [place] [address] 5 No interferon-gamma response to M. tuberculosis antigens was detected. Infection with M. tuberculosis is unlikely. A negative result alone does not exclude infection with M. tuberculosis. For detailed information regarding test interpretation see: www.Last 2 Left/test-catalog/ Clinical+and+Interpretive/94022 6 Test Performed by: [facility] [place] [address] 7 Warning: A positive result is not useful for establishing a diagnosis of syphilis. In most situations, such a result may reflect a prior treated infection; a negative result can exclude a diagnosis of syphilis except for incubating or early primary disease. 8 Because ethnic data is not always readily available, this report includes an eGFR for both -Americans and non- Americans. The National Kidney Disease Education Program (NKDEP) does not endorse the use of the MDRD equation for patients that are not between the ages of 18 and 70, are , have extremes of body size, muscle mass, or nutritional status, or are non- or non-. According to the National Kidney Foundation, irrespective of diagnosis, the stage of the disease is based on the level of kidney function: Stage Description GFR(mL/min/1.73 m(2)) 1 Kidney damage with normal or decreased GFR 90 2 Kidney damage with mild decrease in GFR 60-89 3 Moderate decrease in GFR 30-59 4 Severe decrease in GFR 15-29 5 Kidney failure <15 (or dialysis) 9 SEE RESULT BELOW Name: SAMPLE,ADRIEN Farn[place] : [address]: Jonatan Holliday MD Acct: [id number] Unit: [id number] AGE: 39 Location: OR Re04/23/15 SEX: F Status: REG SDC SPEC: [id number] INDIRA: 04/23/15- [facility] DR: Jonatan Holliday MD REQ: [id number] RECD: 04/23/15 STATUS: SOUT _ ORDERED: LEVEL I FINAL DIAGNOSIS Left ankle, hardware removal: Foreign body (orthopedic hardware) (Gross diagnosis). CLINICAL HISTORY No history given. GROSS DESCRIPTION The specimen is received fresh labeled, Retained Hardware Left Ankle, and consists of two 4.0 x 0.3 cm silver metallic partially threaded Ming-headed screws. Per established hospital medical staff protocol, no tissue is submitted. Gross only. Signed (signature on file) Meenakshi Chou MD 0952 END OF REPORT * ML=Testing performed at Main Lab DEPARTMENT OF PATHOLOGY, [address] [place] [address] Rodri Yost M.D. Director [facility] # [id number] Procedures Date CPT Code Description Status 07/08/2017 43780 I&D Of Abscess Complicated Completed 08/13/2016 59191 I & D Pilonidal Cyst Complicated Completed 04/23/2015 Removal Implant Deep Wire,Screw Nail,Luis Alberto Or Plate Completed 04/23/2015 53568 Removal Implant Deep Wire,Screw Nail,Luis Alberto Or Plate Completed 07/31/2014 66680 Short Leg Cast Completed 07/19/2014 67415 ORIF Trimalleolar Ankle FX Medial And/Or Lateral Completed Malleolus 07/19/2014 34305 ORIF Trimalleolar Ankle FX Medial And/Or Lateral Completed Malleolus 07/11/2014 32532 EKG, Interpretation Only Completed 07/10/2014 52167 FX Ankle Trimalleolar With Manipulation Completed Encounters Type Date Location Provider CPT E/M Dx Office Visit 07/15/2017 8:40a [facility] Internal Medicine Jose Jean, [address] I10 - [place] Jim Arriola,FACP L02.411 Z12.31 N76.0 Office Visit 07/08/2017 9:10a [facility] Harshil Ewing, 11092 B20 Infectious Diseases Zeinab Z79.899 Z23 Office Visit 07/08/2017 10:15a [facility] [place], [address] L02.411 Of [facility] Office Visit 10/30/2016 1:40p [facility] Jalen Calderon 10445 B20 Infectious Eddie Ewing M.D. R21 B37.3 Z79.899 Office Visit 09/12/2016 8:30a [facility] Harshil Ewing, 88955 B37.0 Infectious Diseases Zeinab B20 R21 F41.9 Office Visit 08/26/2016 9:15a [facility] Chapin Regalado, 05397 L05.01 Of [facility] Office Visit 08/18/2016 1:20p [facility] Jalen Ewing, 85955 B37.0 Infectious Diseases Zeinab B20 L05.01 L05.01 B37.0 B20 Office Visit 08/18/2016 3:40p [facility] Internal Jose Jean, 38357 L05.01 Medicine - [place] Jim Arriola,FACP B20 Office Visit 08/11/2016 2:00p [facility] Internal Medicine Jose Jean, 36731 B20 - [place] Jim Arriola,TETEP L05.01 L05.01 B20 B37.0 B37.0 B37.89 Office Visit 08/08/2016 11:32a [facility] Harshil Ewing, 21415 L02.31 Infectious Diseases Zeinab Z86.14 B20 Office Visit 08/08/2016 3:37p [facility] Kaylyn High, VAULT WORKER 89918 L05.01 Assoc[facility] E87.6 J44.9 I10 Office Visit 08/07/2016 3:36p [facility] [place], [address] L05.01 Assoc[facility] Hospital[facility] Zeinab E87.6 I10 J44.9 Office Visit 08/07/2016 7:00a [facility] Naif Small, 35407 L02.31 Of [facility] PA L02.215 A49.02 Office Visit 08/30/2015 9:00a [facility] Jonatan Holliday, 94258 T84.84xA Of Nu Arriola S82.842S G57.92 Office Visit 05/01/2015 10:10a [facility] Harshil Calderon 96154 Z22.322 Infectious Diseases Zeinab Ewing B95.62 Z22.322 Office Visit 03/08/2015 2:00p [facility] Of Jonatan Holliday, 70083 M25.572 C.MJude Arriola Office Visit 11/20/2014 10:45a [facility] Of Paul Medina, 16922 824.6 C.MJude Arriola 719.47 V54.19 Office Visit 07/10/2014 7:00a [facility] Paul Medina, 00775 824.6 C.MJude Arriola Plan of Care Future Appointment(s):08/10/2017 2:20 pm - Jose Jean M.D.,FACP at [facility] Internal Medicine - [address]10/06/2017 10:50 am - Evangelista Ewing M.D. at [facility] For Infectious Fmmskwqc29/07/2018 - Jose Jean M.D., FACPI10 Essential (primary) hypertensionComments:Prescribed Lisinopril/ Hydrochlorothiazide for elevated blood pressure. Advised to have another appointment within the next month to monitor how the drugs are interacting.Goals :Blood pressure goal <140/90 in general. Blood pressure goal <150/90 in people older than 75. Blood presure goal <130/85 in diabetic patients. Goal BMI is less than 25.L02.411 Cutaneous abscess of right yehirfV96.31 Encntr screen mammogram for malignant neoplasm of breastComments:Finish antibiotics and monitor symptoms. Please call our office if symptoms worsen.Advised to have mammogram.N76.0 Acute vaginitisComments:Prescribed Gyne-Lotrimin. UA done at the office today.
--- OUTSIDE RECORDS SUMMARY | 2017-08-06 12:16 | XMS REPORT ---
:1975 External Reference #:[id number] Author Organization [facility] Address [address] [address] Phone [phone] Care Team Providers Name Role Phone Jose Jean MD Primary Care Physician Unavailable Payers Type Date Identification Numbers Payment Provider Subscriber Commercial Effective: Policy Number: [id number] Claudio Iverson Sample 2016 Group Number: [id number] [address] PayID: [id number] [place] [address] Medigap Part B Effective: 2016 Policy Number: [id number] Medicaid Adrien Sample Expires: 2016 Group Name: 1 1 [address] PayID: [id number] [place] [address] Workers Onset: 2014 Policy Number: [place] Adrien Sample Compensation [id number] Claims Group Name: [id number] [address] [address] PayID: [id number] [place] [address] Problems Date Description Provider Status Onset: 08/13/2016 Candidiasis of mouth associated Rachael Jiménez with AIDS Zeinab,FACP Onset: 07/17/2014 Closed trimalleolar fracture Paul Medina M.D. Active Onset: 07/17/2014 Arthralgia of the ankle and/or Paul Medina M.D. Active foot Onset: 11/20/2014 [facility] Traumatic Paul Medina M.D. 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 Tivicay 09/12/ Active Tablets 50mg 30tab 1 by mouth B20 Evangelista 2016 s every day Yumiko Ewing M.D. Descovy 09/12/ Active Tablets 200-25mg 30tab 1 by mouth B20 Evangelista 2016 s every day Yumiko Ewing M.D. Oxycodone-Aceta / Active Tablets 5-325mg 1-2 tabs by Unknown minophen 0000 mouth every 4-6 hours as needed for pain Bactrim DS / Active Tablets 800-160mg 1 by mouth Unknown 0000 twice a day Ibuprofen / Active Tablets 600mg 1 by mouth Unknown 0000 three times a day as needed Ciclopirox 10/30/ Hx Solution 8% 13.2m apply to 1 Evangelista 2016 - l affected Yumiko 10/30/ fingernail Luis Ewing twice daily Zeinab Ketoconazole 10/30/ Hx Cream 2% 30gm apply to Jose Smith area along Yumiko Jean fingernail Zeinab,FACP twice daily Fluconazole 10/03/ Hx Tablets 200mg 5tabs 1 by mouth Evangelista 2017 - every day x D. 10/30/ 5 days Bridger 2016 M.D. Sulfamethoxazol 10/03/ Hx Tablets 800-160mg 30tab 1 by mouth B20 Evangelista e/Trimethoprim 2017 s once daily D. DS Rowdy Ewing. Fluconazole 10/02/ Hx Tablets 100mg 7tabs every day Jose 2016 - for 7 days Yumiko Jean, 10/03/ Zeinab,FACP 2016 Citalopram 09/12/ Hx Tablets 20mg 30tab 1/2 tab by F41.9 Evangelista Hydrobromide 2017 - s mouth daily D. 10/30/ for 7 days Bridger2016 then 1 by M.D. mouth every day Acyclovir 09/12/ Hx Tablets 400mg 30tab take 1 R21 Evangelista 2016 - s tablet by D. 07/07/ mouth twice surendra2017 a day M.D. Sulfamethoxazol 08/18/ Hx Tablets 400-80mg 30tab 1 by mouth B20 Evangelista e-Trimethoprim 2017 - s every day D. 08/18/ Bridger2016 M.D. Sulfamethoxazol 08/18/ Hx Tablets 400-80mg 30tab 1 by mouth B20 Evangelista e-Trimethoprim 2016 - s every day D. 10/03/ Bridger2016 M.D. Nystatin 08/11/ Hx Suspension [id number] 250ml swish and Evangelista 2017 - t/ML swallow 5ml D. 10/29/ four times Bridger2016 a day M.D. Fluconazole 08/11/ Hx Tablets 100mg 7tabs every day Jose 2016 - for 7 days Yumiko Jean, 08/18/ Zeinab,FACP 2016 Bactrim DS 08/08/ Hx Tablets 800-160mg 20tab 1 by mouth Other 2017 - s twice a day Ordering 08/20/ Provider 2017 Oxycodone-Aceta 08/08/ Hx Tablets 5-325mg 30tab 1 tab by Jose stahl 2017 - s mouth every D. Ted, 10/30/ 4 hours as Zeinab,FACP 2016 needed for pain. Acetaminophen 08/08/ Hx Tablets ER 650mg 30tab Not Taking Other ER 2017 - s 1 tab by Ordering 08/11/ mouth q4 Provider 2017 hours as needed pain Voltaren 08/29/ Hx Gel 1% 300g apply 2 T84.84xA Jonatan 2016 - grams Mg, 08/17/ topically M.D. 2017 three times a day Codeine Sulfate 08/29/ [...] Evangelista 2014 - both D. 08/17/ nostrils 2016 twice a day M.D. for 5 days Hibiclens 05/01/ Hx Liquid 4% 236un apply from Evangelista 2014 - its neck down D. 08/17/ qd for 5 [facility]2016 days, let M.D. dry for 1-2 minutes [...] Hx Capsules 100mg 60cap Not Taking1 Paul 2015 - s by mouth Jose Maria 08/17/ twice a day Adam 2016 M.D. Oxycontin / Hx Tab ER 12H 20mg by mouth Paul 0000 - Abuse-Det every 12 Jose Maria 01/06/ hours Adam 2014 M.D. Oxycodone-Aceta / Hx Tablets 5-325mg take 1 to 2 Paul minophen 0000 - tablets by Jose Maria 01/06/ mouth every Adam2014 6 to 8 M.D. hours as needed pain Immunizations CPT Code Status Date Vaccine Lot # 34910 Given 07/08/2017 Pneumococcal Conjugate Vaccine 13 Valent For [id number] Intramuscular Use Vital Signs Date Vital Result Comment 07/08/2017 Height 69 inches 5'9" Weight 168.38 [...] Surgical Pathology SEE RESULT BELOW 9 1 [id number] 2 SEE RESULT BELOW Name: SAMPLE,ADRIEN Farnsworth : [address]: Juan José Patel MD Acct: [id number] Unit: [id number] AGE: 41 Location: [facility] Re07/08/17 SEX: F Status: REG REF SPEC: [id number] INDIRA: 07/08/17-[address]: Juan José Patel MD REQ: [id number] RECD: 07/08/17-1202 STATUS: RES [facility] [address]: Evangelista Ewing MD _ SOURCE: AXILLA,RIG SPDESC: ORDERED: Culture Stain COMMENTS: [id number] QUERIES: Specimen Description RIGHT AXILLA ABSCESS Procedure Result Reported Site Wound/Misc Gram Stain Final 07/08/17- 1423 ML 2+ Neutrophils 1+ Epithelial Cells 3+ Gram Positive Cocci in Clusters, resembling Staph 1+ Gram Positive Bacilli Wound/Misc Culture PENDING * ML - MAIN LAB ([facility]) . END OF REPORT * ML=Testing performed at Main Lab DEPARTMENT OF PATHOLOGY, [address] [place] [address] Rodri Yost M.D. Director [facility] # [id number] 3 Result in log copies/mL is 1.61. ADDITIONAL INFORMATION The quantification range of this assay is 20 to 10,000,000 copies/mL (1.30 log copies/mL to 7.00 log copies/mL). Testing was performed by the KATELIN AmpliPrep/KATELIN TaqMan HIV-1 Test version 2.0 ([employer] This test has been modified from the gummed tape press operator's instructions. Its performance characteristics were determined by [facility] in a manner consistent with CLIA requirements. This test has not been cleared or approved by the U.S. Food and Drug Administration. Test Performed by: [facility] [place] [address] 4 RESULT: Reviewed by: Terrell Murray, Ph.D., D(DORA, FAAAAI ADDITIONAL INFORMATION This test was developed using an analyte specific reagent. Its performance characteristics were determined by [facility] in a manner consistent with CLIA requirements. This test has not been cleared or approved by the U.S. Food and Drug Administration. Test Performed by: [place] [address] 5 No interferon-gamma response to M. tuberculosis antigens was detected. Infection with M. tuberculosis is unlikely. A negative result alone does not exclude infection with M. tuberculosis. For detailed information regarding test interpretation see: [email or web address]-[email or web address]/ Clinical+and+Interpretive/11012 6 Test Performed by: [place] [address] 7 Warning: A positive result is not [...] [address]: Jonatan Holliday MD Acct: [id number] Unit: [id number] AGE: 39 Location: OR Re04/23/15 SEX: F Status: [place] [facility] SPEC: [id number] INDIRA: 04/23/15- [facility]: Jonatan Holliday MD REQ: [id number] RECD: 04/23/15 STATUS: SOUT _ ORDERED: LEVEL [...] performed at Main Lab DEPARTMENT OF PATHOLOGY, [address] [place] [address] Rodri Yost M.D. Director [facility] # [id number] Procedures Date CPT Code Description Status 07/08/2017 33801 I&D Of Abscess Complicated Completed 08/13/2016 82609 I & D Pilonidal Cyst Complicated Completed 04/23/2015 Removal Implant Deep Wire,Screw Nail,Luis Alberto Or Plate Completed 04/23/201567393 Removal Implant Deep Wire,Screw Nail,Luis Alberto Or Plate Completed 07/31/2014 53146 Short Leg Cast Completed 07/19/2014 12584 ORIF Trimalleolar Ankle FX Medial And/Or Lateral Completed Malleolus 07/19/2014 60226 ORIF Trimalleolar Ankle FX Medial And/Or Lateral Completed Malleolus 07/11/2014 31988 EKG, Interpretation Only Completed 07/10/2014 66607 FX Ankle Trimalleolar With Manipulation Completed Encounters Type Date Location Provider CPT E/M Dx Office Visit 10/30/2016 1:40p [facility] Harshil Ewing, 19962 B20 Infectious Diseases MKasi R21 B37.3 Z79.899 Office Visit 09/12/2016 8:30a [facility] Harshil Ewing, 32574 B37.0 Infectious Diseases MKasi B20 R21 F41.9 Office Visit 08/26/2016 9:15a [facility] Chapin Regalado, 38923 L05.01 Of [facility] Office Visit 08/18/2016 3:40p [facility] Internal Medicine Jose Jean, 73314 L05.01 - [place] Jim Arriola,FACP B20 Office Visit 08/18/2016 1:20p [facility] Harshil Ewing, 37970 B37.0 Infectious Diseases MKasi B20 L05.01 L05.01 B37.0 B20 Office Visit 08/11/2016 2:00p [facility] Internal Medicine Jose Jean, 04457 B20 - Tbarmand Fernandez M.D.,FACP L05.01 L05.01 B20 B37.0 B37.0 B37.89 Office Visit 08/08/2016 11:32a [facility] Harshil Ewing, 62208 L02.31 Infectious Diseases Zeinab Z86.14 B20 Office Visit 08/08/2016 3:37p [facility] Kaylyn High, CYBER SYSTEMS OPERATIONS SPECIALIST 19312 L05.01 Assoc, Hospitalists E87.6 J44.9 I10 Office Visit 08/07/2016 7:00a [facility] Naif Small, 46256 L02.31 Of [facility] PA L02.215 A49.02 Office Visit 08/07/2016 3:36p [facility] [place], [address] L05.01 Assoc, Hospitalists Zeinab E87.6 I10 J44.9 Office Visit 08/30/2015 9:00a [facility] Jonatan Holliday, 48005 T84.84xA Of Nu Arriola S82.842S G57.92 Office Visit 05/01/2015 10:10a [facility] Harshil Calderon 99533 Z22.322 Infectious Diseases Zeinab Ewing B95.62 Z22.322 Office Visit 03/08/2015 2:00p [facility] Of Jonatan Holliday, 15229 M25.572 C.Kay Arriola Office Visit 11/20/2014 10:45a [facility] Of Paul Medina, 80230 824.6 C.MJude Arriola 719.47 V54.19 Office Visit 07/10/2014 7:00a [facility] Of Paul Medina, 47499 824.6 C.MJude Arriola Plan of Care Future Appointment(s):07/15/2017 8:40 am - Jose Jean M.D.,FACP at [facility] Internal Medicine - [address]05/06/2017 10:50 am - Evangelista Ewing M.D. at [facility] For Infectious Zgqlxdvo26/31/2018 - Juan José Patel MD, FACSL02.411 Cutaneous abscess of right axillaFollow up:2 days with MLRecommendations:Wound Care: Remember to wash your wound daily with basic soap and water and rebandage. Warm compresses 2-3x/daily to encourage further drainage and healing.
--- OUTSIDE RECORDS SUMMARY | 2017-08-06 12:17 | XMS REPORT ---
:1975 External Reference #:[id number] Author Organization [facility] Address [address] [address] Phone [phone] Care Team Providers Name Role Phone Jose Jean MD Primary Care Physician Unavailable Payers Type Date Identification Numbers Payment Provider Subscriber Commercial Effective: Policy Number: [id number] Claudiojeffery Iverson Sample 2016 Group Number: [id number] [address] PayID: [id number] [place] [address] Medigap Part B Effective: 2016 Policy Number: [id number] Medicaid Adrien Sample Expires: 2016 Group Name: 1 1 [address] PayID: [id number] [place] [address] Workers Onset: 2014 Policy Number: [place] Adrien Sample Compensation [id number] Claims Group Name: [id number] [address] [address] PayID: [id number] [place] [address] Problems Date Description Provider Status Onset: 08/13/2016 [...] Marital Status Single Lives With Children 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 Tivicay 09/12/ Active Tablets 50mg 30tab 1 by mouth B20 Evangelista 2016 s every day Yumiko Gomez M.D. Descovy 09/12/ Active Tablets 200-25mg 30tab 1 by mouth B20 Evangelista 2016 s every day Yumiko Gomez M.D. Oxycodone-Aceta / Active Tablets 5-325mg 1-2 [...] - l affected Yumiko 10/30/ fingernail Luis Gomez twice daily Zeinab Ketoconazole 10/30/ Hx Cream 2% 30gm apply to Jose Smith area along Yumiko Jean fingernail Zeinab,FACP twice daily Fluconazole 10/03/ Hx Tablets 200mg 5tabs 1 by mouth Evangelista 2017 - every day x D. 10/30/ 5 days Bridger 2016 M.D. Sulfamethoxazol 10/03/ Hx Tablets 800-160mg 30tab 1 by mouth B20 Evangelista e/Trimethoprim 2017 s once daily D. DS Rowdy Gomez. Fluconazole 10/02/ Hx Tablets 100mg 7tabs every [...] 10/03/ Bridger2016 M.D. Nystatin 08/11/ Hx Suspension [id number] 250ml swish and Evangelista 2017 - t/ML [...] neck down D. 08/17/ qd for 5 [facility]2016 days, let M.D. dry for 1-2 minutes [...] CPT Code Status Date Vaccine Lot # 54366 Given 07/08/2017 Pneumococcal Conjugate Vaccine 13 Valent For [id number] Intramuscular Use Vital Signs Date Vital Result [...] Test Date Test Result H/L Range Note Quantiferon Gold TB 11/25/2016 M tuberculosis by Negative Negative 1 Quantiferon TB Ag minus Nil Result -0.02 IU/mL TB Mitogen minus Nil Result > 10.00 IU/mL TB Nil Result 0.16 IU/mL 2 Laboratory test finding 11/25/2016 Syphillis Igg W/Reflex Nonreactive Nonreactive 3 RPR Hepatitis C Antibody Nonreactive Nonreactive Comp [...] Egfr Non- 53.6 >60 Egfr 69.0 >60 4 CBC Auto Diff 11/25/2016 White Blood [...] 0-2 Nucleated Red Blood Cells % 0.2 CD4/CD8 T-Cell Count 11/25/2016 Absolute CD45 Count 0.94 thou/mcL 0.82- 2.84 % CD3 65 % 58-86 % CD4 9 % 32-64 % CD8 55 % 13-40 CD3 607 cells/L 550-2202 CD4 81 cells/L 365-1437 CD8 514 cells/L 145-846 H/S Ratio 0.2 >=0.9 CD4 Reviewed By See Comment 5 HIV-1 Rna QNT By PCR 11/25/2016 HIV-1 Rna (PCR) 40 copies/mL Undetected 6 i Laboratory test 04/23/2015 Surgical Pathology SEE RESULT BELOW 7 finding 1 No interferon-gamma response to M. tuberculosis antigens was detected. Infection with M. tuberculosis is unlikely. A negative result alone does not exclude infection with M. tuberculosis. For detailed information regarding test interpretation see: [email or web address]/test-catalog/ Clinical+and+Interpretive/56264 2 Test Performed by: [place] [address] 3 Warning: A positive result is not useful for establishing a diagnosis of syphilis. In most situations, such a result may reflect a prior treated infection; a negative result can exclude a diagnosis of syphilis except for incubating or early primary disease. 4 Because ethnic data is not always readily [...] 15-29 5 Kidney failure <15 (or dialysis) 5 RESULT: Reviewed by: Terrell Murray, Ph.D., D([facility]), FAAAAI ADDITIONAL INFORMATION This test was developed using an analyte specific reagent. Its performance characteristics were determined by [facility] in a manner consistent with CLIA requirements. This test has not been cleared or approved by the U.S. Food and Drug Administration. Test Performed by: [facility] - [address] [address] 6 Result in log copies/mL is 1.61. ADDITIONAL INFORMATION The quantification range of this assay is 20 to 10,000,000 copies/mL (1.30 log copies/mL to 7.00 log copies/mL). Testing was performed by the KATELIN AmpliPrep/KATELIN TaqMan HIV-1 Test version 2.0 ([employer] This test has been modified from the middle school technology teacher's instructions. Its performance characteristics were determined by [facility] in a manner consistent with CLIA requirements. This test has not been cleared or approved by the U.S. Food and Drug Administration. Test Performed by: [facility] - [address] [address] 7 SEE RESULT BELOW Name: ADRIEN FOSTER : [address]: Jonatan Holliday MD Acct: [id number] Unit: [id number] AGE: 39 Location: OR Re04/23/15 SEX: F Status: REG [facility] [place] SPEC: [id number] INDIRA: 04/23/15- SUBM DR: Jonatan Holliday MD REQ: [id number] RECD: 04/23/156 STATUS: SOUT _ ORDERED: LEVEL I FINAL [...] performed at Main Lab DEPARTMENT OF PATHOLOGY, [address] [place] [address] Rodri Yost M.D. Director [facility] # [id number] Procedures Date CPT Code Description Status 07/08/2017 47323 I&D Abscess Simple Completed 08/13/2016 31737 I & D Pilonidal Cyst Complicated Completed 04/23/2015 Removal Implant Deep Wire,Screw Nail,Luis Alberto Or Plate Completed 04/23/2015 Removal Implant Deep Wire,Screw Nail,Luis Alberto Or Plate Completed 07/31/2014 16472 Short Leg Cast Completed 07/19/2014 95701 ORIF Trimalleolar Ankle FX Medial And/Or Lateral Completed Malleolus 07/19/2014 19206 ORIF Trimalleolar Ankle FX Medial And/Or Lateral Completed Malleolus 07/11/2014 52901 EKG, Interpretation Only Completed 07/10/2014 26362 FX Ankle Trimalleolar With Manipulation Completed Encounters Type Date Location Provider CPT E/M Dx Office Visit 10/30/2016 1:40p [facility] Harhsil Gomez, 67048 B20 Infectious Diseases M.Yumiko R21 B37.3 Z79.899 Office Visit 09/12/2016 8:30a [facility] Evangelista Gomez, 13805 B37.0 Infectious Diseases MKasi B20 R21 F41.9 Office Visit 08/26/2016 9:15a [facility] Chapin Regalado, 48969 L05.01 Of [facility] Office Visit 08/18/2016 3:40p [facility] Internal Medicine Jose Jean, 32048 L05.01 - [place] Jim Arriola,FACP B20 Office Visit 08/18/2016 1:20p [facility] Evangelista ShirleySagar Sparksjosseline, 97911 B37.0 Infectious Diseases Zeinab B20 L05.01 L05.01 B37.0 B20 Office Visit 08/11/2016 2:00p [facility] Internal Medicine Jose Jean, [address] B20 - [place] Arriola,FACP L05.01 L05.01 B20 B37.0 B37.0 B37.89 Office Visit 08/08/2016 11:32a [facility] Evangelista Gomez, 91476 L02.31 Infectious Diseases Zeinab Z86.14 B20 Office Visit 08/08/2016 3:37p [facility] Kaylyn High, MARCE [address]666 L05.01 Assoc, Hospitalists E87.6 J44.9 I10 Office Visit 08/07/2016 7:00a [facility] Naif Small, 84192 L02.31 Of [facility] PA L02.215 A49.02 Office Visit 08/07/2016 3:36p [facility] [place], [address] L05.01 Assoc, Hospitalists Zeinab E87.6 I10 J44.9 Office Visit 08/30/2015 9:00a [facility] Jonatan Holliday, 75694 T84.84xA Of Nu Arriola S82.842S G57.92 Office Visit 05/01/2015 10:10a [facility] Evangelista Calderon 57156 Z22.322 Infectious Diseases Zeinab Gomez B95.62 Z22.322 Office Visit 03/08/2015 2:00p [facility] Jonatan Holliday, 32738 M25.572 Nu Arriola Office Visit 11/20/2014 10:45a [facility] Paul Medina, 77885 824.6 Vivi.Kay Arriola 719.47 V54.19 Office Visit 07/10/2014 7:00a [facility] Paul Medina, 05030 824.6 C.Kay Arriola Plan of Care Future Appointment(s):07/10/2017 2:00 pm - BRYSON Barraza at [facility]07/15/2017 8:40 am - Jose Jean M.D.,FACP at [facility] Internal Medicine - [address]/06/2017 10:50 am - Evangelista Gomez M.D. at [facility] For Infectious Uvixjxfr69/31/2018 - Juan José Patel MD, FACSL02.411 Cutaneous abscess of right axillaNew Labs:Wound Culture/SensiFollow up:2 days with MLRecommendations:Wound Care: Remember to wash your wound daily with basic soap and water and rebandage. Warm compresses 2-3x/daily to encourage further drainage and healing.
[2017-08-06] MEDS ORDERED: Lidocaine 4% TOPICAL* 50 ML TOP.SOLN ONE (14:04)
[2017-08-06] MEDS ORDERED: Lidocaine 2.5%/Prilocain 2.5%* 5 GM TUBE TOPICAL ONE (14:04)
[2017-08-06] MEDS ORDERED: Lidocaine 2.5%/Prilocain 2.5%* 5 GM TUBE ONE (14:05)
[2017-08-06] MEDS ORDERED: HYDROcodone/ACETAMIN 5-325 MG* 1 TAB PO ONE (14:59)
[2017-08-06 15:19] VITALS: BP 178/98
--- NOTE | 2017-08-06 16:16 | ED ---
Skin Complaint - HPI Summary HPI Summary: Patient presents to the ED with a chief complaint of large abscess in the right axilla 3 days. She has a history of such and has been seen by Dr. Arevalo for surgery removal of indwelling tracts on the bilateral axillas. She continues to get pilonidal abscesses as well as axillary abscesses. She states she first noticed it 3 days ago after she began to shave her underarms again. Denies any fevers, sweats, chills. Denies any drainage from the area. The area measures 5 cm x 3 cm. She endorses a 10 out of 10 pain directly located over the abscess. History of MRSA. - History of Current Complaint Chief Complaint: EDRashSkinAbscess Time Seen by Provider: 08/06/17 12:26 Stated Complaint: SWELLING IN RT ARMPIT Hx Obtained From: Patient Onset/Duration: Started Hours Ago Skin Exposure Onset/Duration: Hours Ago Timing: Constant Onset Severity: Moderate Current Severity: Moderate Pain Intensity: 0 Pain Scale Used: 0-10 Numeric Aggravating Symptom(s): Nothing Alleviating Symptom(s): Nothing Associated Signs & Symptoms: Negative - Additional Pertinent History Primary Care Physician: [id number] - Allergy/Home Medications Allergies/Adverse Reactions: Allergies Allergy/AdvReac Type Severity Reaction Status Date / Time MS Carisoprodol [From [facility]] AdvReac Headache Verified 07/07/17 02:12 PMH/Surg Hx/FS Hx/Imm Hx Previously Healthy: Yes Endocrine/Hematology History: Denies: Hx Diabetes Cardiovascular History: Reports: Hx Hypertension - WELL CONTROLLED Denies: Hx Pacemaker/ICD Respiratory History: Reports: Hx Chronic Obstructive Pulmonary Disease (COPD) GI History: Reports: Hx Gastroesophageal Reflux Disease, Hx Irritable Bowel History: Denies: Hx Renal Disease Musculoskeletal History: Reports: Hx Orthopedic Injury - ankle surgery, Other Musculoskeletal History - RIGHT SHOULDER PAIN, CERVICAL DDD Sensory History: Denies: Hx Contacts or Glasses, Hx Hearing Aid Opthamlomology History: Denies: Hx Contacts or Glasses Psychiatric History: Reports: Hx Anxiety, Hx Depression - MAJOR DEPRESSION DISORDER Denies: Hx Panic Disorder - Surgical History Surgery Procedure, Year, and Place: 1992 D&C, [place]. 2008 HY[place]ERECTOMY, [place]. L ANKLE ORIF 07/23 [facility] – [place]. Apr HARDWARE REMOVAL- PER PT THERE ARE STILL SOME SCREWS IN HER ANKLE Hx Anesthesia Reactions: No - Immunization History Date of Tetanus Vaccine: 2010 Date of Influenza Vaccine: has not received Hx Pertussis Vaccination: No Immunizations Up to Date: Unable to Obtain/Confirm Infectious Disease History: No Infectious Disease History: Reports: Hx of Known/Suspected MRSA Denies: Traveled Outside the [place] in Last 30 Days - Family History Known Family History: Positive: Diabetes, Other - GRANDMOTHER HAD MANY STROKES. [place] Negative: Cardiac Disease - Social History Occupation: Employed Full-time Lives: With Family Alcohol Use: Occasionally Alcohol Amount: SOCIALLY Hx Substance Use: Yes Substance Use Type: Reports: Marijuana Substance Use Comment - Amount & Last Used: see consult report Hx Tobacco Use: Yes Smoking Status (MU): Current Every Day Smoker Type: Cigarettes Amount Used/How Often: 5-10 CIGS/DAY Length of Time of Smoking/Using Tobacco: 30 YRS Have You Smoked in the Last Year: Yes Review of Systems Constitutional: Negative Negative: Fever, Chills, Fatigue, Skin Diaphoresis Eyes: Negative Cardiovascular: Negative Respiratory: Negative Negative: Abdominal Pain, Vomiting, Diarrhea, Nausea Genitourinary: Negative Positive: no symptoms reported, see HPI Positive: Other - 3 x 5 cm abscess to the right axilla Neurological: Negative All Other Systems Reviewed And Are Negative: Yes Physical Exam Triage Information Reviewed: Yes Vital Signs On Initial Exam: Initial Vitals Temp Pulse Resp BP Pulse Ox 98.0 F 68 16 175/98 99 08/06/17 12:06 08/06/17 12:06 08/06/17 12:06 08/06/17 12:06 08/06/17 12:06 Vital Signs Reviewed: Yes Appearance: Positive: Well-Appearing, Well-Nourished Skin: Positive: Warm, Skin Color Reflects Adequate Perfusion, Other - 3 x 5 cm to the right axilla Head/Face: Positive: Normal Head/Face Inspection Eyes: Positive: EOMI, LINA, Conjunctiva Clear Neck: Positive: Supple, No Lymphadenopathy Respiratory/Lung Sounds: Positive: Clear to Auscultation, Breath Sounds Present Cardiovascular: Positive: Normal, RRR, Pulses are Symmetrical in both Upper and Lower Extremities Musculoskeletal: Positive: Normal, Strength/ROM Intact Neurological: Positive: Speech Normal Psychiatric: Positive: Normal, Affect/Mood Appropriate Diagnostics - Vital Signs Vital Signs Temp Pulse Resp BP Pulse Ox 08/06/17 15:17 98.0 F 68 16 178/98 99 08/06/17 12:06 98.0 F 68 16 175/98 99 - Laboratory Lab Statement: Any lab studies that have been ordered have been reviewed, and results considered in the medical decision making process. Course/Dx - Course Course Of Treatment: During the course of treatment, the patient is evaluated for right axillary abscess. She does not appear to be ill otherwise or septic. Labs were not obtained. EMLA cream applied around the 3 x 5 cm abscess. With an inflammatory nodule surrounding most likely due from the hair follicles from folliculitis. Iodine solution applied to the area. Adequate analgesia was achieved with 3 [place] lidocaine without epi. Small simple linear incision through the total length of the abscess conforming to than natural folds of skin was made. Culture obtained immediately. Copious amounts of purulent drainage followed by bleeding. After incision, probing of the abscess revealed no loculated areas or tracking. A 1.5 cm incision was made so after adequate packing with one quarter iodoform gauze measuring 7 cm was inserted, 1 5-0 suture Prolene was placed to assist with bleeding. No evidence of surrounding cellulitis. Due to MRSA history, patient is placed on Bactrim X7 days. I will see her back in the clinic in 2 days for a wound check and a possible repacking. She is also given pain control. - Diagnoses Provider Diagnoses: Axillary abscess Discharge - Discharge Plan Condition: Stable Disposition: HOME Prescriptions: oxyCODONE/Acetamin 10/325(NF) [Percocet 10/325 (NF)] 1 tab PO Q6H #12 tab MDD 4 Sulfamethox/Trimethoprim DS* [Bactrim DS 800/160 TAB*] 1 tab PO BID #14 tab MDD 2 Patient Education Materials: Abscess (ED) Forms: *Work Release Referrals: Jose Jean MD [Primary Care Provider] - Additional Instructions: Please follow up with Dr. Arevalo Return in 2 days for a wound check Keep the area covered with its current bandage 1 day If you feel the bandage is seeping through, you may change the bandage before that time Please do not pull out the packing Bactrim twice daily 7 days I have given you a 3 day supply of pain medications Note for work
== END 2017-08-06 15:19 | disposition home or self-care (01) ==
LOC: ED 11:56
DX: L02.411 Cutaneous abscess of right axilla (principal); Z86.79 Personal history of other diseases of the circulatory system; Z87.09 Personal history of other diseases of the respiratory system; Z87.19 Personal history of other diseases of the digestive system; F17.210 Nicotine dependence, cigarettes, uncomplicated
CPT/HCPCS: 99282; A9270-GY

== ENCOUNTER 2017-11-23 09:05 | Emergency (ER) | payer OTHER ==
[2017-11-23] MEDS ORDERED: NS 0.9% 1000 ML* 1,000 ML IV ONE ×2 (12:31→15:42)
[2017-11-23] MEDS ORDERED: Ketorolac INJ* 30 MG/ML 1 ML VIAL IV PUSH ONE (12:31)
[2017-11-23 13:27] LABS: ABS Basophils 0.1 10^3/ul (0-0.2); ABS Eosinophils 0.1 10^3/ul (0-0.6); ABS Lymphocytes 0.8 10^3/ul (1.0-4.8); ABS Monocytes 0.3 10^3/ul (0-0.8); ABS Neutrophils 1.6 10^3/ul (1.5-7.7); ABS Nucleated RBC 0 10^3/ul; Eosinophil % 5.1 % (0-6); Hematocrit 40 % (35-47); Hemoglobin 13.4 g/dl (12.0-16.0); Lymphocyte % 26.4 % (25-47); Mean Corpuscular HGB Conc 34 g/dl (31-36); Mean Corpuscular Hemoglobin 32 pg (27-31); Mean Corpuscular Volume 95 fL (80-97); Mean Platelet Volume 8.1 um3 (7.4-10.4); Nucleated Red Blood Cells % 0; Platelet Count 174 10^3/ul (150-450); Red Blood Count 4.22 10^6/ul (4.00-5.40); Red Cell Distribution Width 14 % (10.5-15); White Blood Count 2.9 10^3/ul (3.5-10.8)
[2017-11-23 13:39] LABS: INR 0.91 (0.77-1.02)
[2017-11-23 13:44] LABS: EGFR Non-African American 56.9 (>60)
[2017-11-23] MEDS ORDERED: Vancomycin(*) 1,000 MG in NS 0.9% 250 ML* 250 ML IVPB ONE (15:00)
[2017-11-23] MEDS ORDERED: Diazepam SYRINGE* 5 MG/ML 2 ML SYRINGE (10 MG total) IV ONE (15:29)
[2017-11-23] MEDS ORDERED: PROCHLORPERAZINE INJ 5 MG/ML 2 ML VIAL IV ONE (15:30)
[2017-11-23] MEDS ORDERED: Morphine INJ* 2 MG/ML 1 ML CARPUJECT IV ONE (15:30)
[2017-11-23] MEDS ORDERED: Morphine VIAL* 4 MG/ML VIAL (1 ml vial) IV ONE (15:34)
[2017-11-23] MEDS ORDERED: LORazepam INJ* 2 MG/ML 1 ML VIAL IV PUSH ONE (15:41)
--- NOTE | 2017-11-23 15:42 | ED ---
Skin Complaint - HPI Summary HPI Summary: Patient here with right axillary abscesses 5 days. She reports the started off small the size of M&Ms and expanded over the past couple days. They are red , tender, hot that she is not able to lower her arm due to the pain. She reports fevers and chills at home however she is afebrile with normal vital signs here except for elevated blood pressure which I suspect may be due to her pain. She also admits she has poorly controlled blood pressure and doesn't raise take her medicine - did not take her medicine today. Furthermore, she admits she is HIV positive and has not been taking her medications over the past many months. She was following with Dr. Corado when she lost her health insurance she stopped taking her medication. She is interested in restarting them today. Denies any other recent illnesses. History of axillary abscesses. She reports before she believed this was triggered by [place] and now she believes is triggered by her deodorant. She plans to stop using this deodorant in the hopes of avoiding future abscesses in her armpits. History of MRSA. - History of Current Complaint Chief Complaint: EDRashSkinAbscess Time Seen by Provider: 11/23/17 10:59 Stated Complaint: ABSCESS Hx Obtained From: Patient Pain Intensity: 10 - Additional Pertinent History Primary Care Physician: [id number] - Allergy/Home Medications Allergies/Adverse Reactions: Allergies Allergy/AdvReac Type Severity Reaction Status Date / Time carisoprodol [From [facility]] Allergy Headache Verified 11/23/17 09:19 Home Medications: Home Medications Lisinopril/HCTZ 03/19.5(NF) [Zestoretic 03/19.5(NF)] 1 tab PO DAILY 11/23/17 [ History Confirmed 11/23/17] PMH/Surg Hx/FS Hx/Imm Hx Previously Healthy: Yes Endocrine/Hematology History: Denies: Hx Anticoagulant Therapy, Hx Blood Disorders, Hx Diabetes Cardiovascular History: Reports: Hx Hypertension - poorly controlled - has meds , doesn't always take Denies: Hx Pacemaker/ICD Respiratory History: Reports: Hx Chronic Obstructive Pulmonary Disease (COPD) GI History: Reports: Hx Gastroesophageal Reflux Disease, Hx Irritable Bowel History: Denies: Hx Renal Disease Musculoskeletal History: Reports: Hx Orthopedic Injury - ankle surgery, Other Musculoskeletal History - RIGHT SHOULDER PAIN, CERVICAL DDD Sensory History: Denies: Hx Contacts or Glasses, Hx Hearing Aid Opthamlomology History: Denies: Hx Contacts or Glasses Psychiatric History: Reports: Hx Anxiety, Hx Depression - MAJOR DEPRESSION DISORDER Denies: Hx Panic Disorder - Surgical History Surgery Procedure, Year, and Place: 1992 D&C, [place]. 2008 [place]Y, [place]. [place] [facility] [place] HARD[place] REMOVAL- PER PT THERE ARE STILL SOME SCREWS IN HER ANKLE Hx Anesthesia Reactions: No - Immunization History Date of Tetanus Vaccine: 2010 Date of Influenza Vaccine: has not received Infectious Disease History: No Infectious Disease History: Reports: Hx Human Immunodeficiency Virus (HIV) - off meds at present, Hx of Known/Suspected MRSA Denies: Traveled Outside the [place] in Last 30 Days - Family History Known Family History: Positive: Diabetes, Other - GRANDMOTHER HAD MANY STROKES. [place] Negative: Cardiac Disease - Social History Occupation: Employed Full-time - [employer] Alcohol Use: Occasionally Alcohol Amount: SOCIALLY Hx Substance Use: Yes Substance Use Type: Reports: Marijuana Substance Use Comment - Amount & Last Used: see consult report Hx Tobacco Use: Yes Smoking Status (MU): Current Every Day Smoker Type: Cigarettes Amount Used/How Often: 5-10 CIGS/DAY Length of Time of Smoking/Using Tobacco: 30 YRS Have You Smoked in the Last Year: Yes Review of Systems Positive: Fever, Chills. Negative: Fatigue Eyes: Negative Negative: Photophobia, Blurred Vision, Diplopia ENT: Negative - no resp sx Cardiovascular: Negative Negative: Chest Pain Respiratory: Negative Negative: Shortness Of Breath Gastrointestinal: Negative Positive: no symptoms reported Positive: Decreased ROM, Edema Skin: Other - abscesses Neurological: Negative Positive: Anxious All Other Systems Reviewed And Are Negative: Yes Physical Exam Triage Information Reviewed: Yes Vital Signs On Initial Exam: Initial Vitals Temp Pulse Resp BP Pulse Ox 97.5 F 75 16 177/111 100 11/23/17 09:16 11/23/17 09:16 11/23/17 09:16 11/23/17 09:16 11/23/17 09:16 Vital Signs Reviewed: Yes Appearance: Positive: Well-Appearing, Well-Nourished, Pain Distress Skin: Positive: Warm, Skin Color Reflects Adequate Perfusion, Dry - 2 large abscesses in Rt axilla - erythema, warm, indurated, TTP Head/Face: Positive: Normal Head/Face Inspection Eyes: Positive: EOMI ENT: Positive: Hearing grossly normal Respiratory/Lung Sounds: Positive: Breath Sounds Present Cardiovascular: Positive: Pulses are Symmetrical in both Upper and Lower Extremities Musculoskeletal: Positive: Limited @ - holding Rt shoulder/arm overhead d/t pain Neurological: Positive: Normal, Sensory/Motor Intact, Alert, Oriented to Person Place, Time, CN Intact II-III Psychiatric: Positive: Anxious Procedures - Procedure Summary Procedure Summary: wound covered w/ sterile gauze and pt wrapped w/ SHAYY wrap - tolerated procedure well - Incision and Drainage Right Upper Axilla Site: Distal Anesthesia: Local, Lidocaine Instrument(s): Scalpel - #11 - copious purosanginous d/c w/ scant tiny clots Packing: Gauze - 06/11" plain - hemodynamically stable - pt tolerated well Right Upper Site: Rt axilla - proximal Anesthesia: Local, Lidocaine Instrument(s): Scalpel - #11 - copious purosanginous d/c w/ scant tiny clots Packing: Gauze - 06/11" plain - hemodynamically stable - pt tolerated well Diagnostics - Vital Signs Vital Signs Temp Pulse Resp BP Pulse Ox 11/23/17 09:16 97.5 F 75 16 177/111 100 - Laboratory Lab Results: Lab Results 11/23/17 11/23/17 11/23/17 Range/Units 13:15 13:15 13:15 WBC 2.9 L (3.5-10.8) 10^3/ul RBC 4.22 (4.00-5.40) 10^6/ul Hgb 13.4 (12.0-16.0) g/dl Hct 40 (35-47) % MCV 95 (80-97) fL MCH 32 H (27-31) pg MCHC 34 (31-36) g/dl RDW 14 (10.5-15) % Plt Count 174 (150-450) 10^3/ul MPV 8.1 (7.4-10.4) um3 Neut % (Auto) 55.1 (38-83) % Lymph % (Auto) 26.4 (25-47) % [place] % (Auto) 10.9 H (0-7) % Eos % (Auto) 5.1 (0-6) % Baso % (Auto) 2.5 H (0-2) % Absolute Neuts (auto) 1.6 (1.5-7.7) 10^3/ul Absolute Lymphs (auto) 0.8 L (1.0-4.8) 10^3/ul Absolute Monos (auto) 0.3 (0-0.8) 10^3/ul Absolute Eos (auto) 0.1 (0-0.6) 10^3/ul Absolute Basos (auto) 0.1 (0-0.2) 10^3/ul Absolute Nucleated RBC 0 10^3/ul Nucleated RBC % 0 INR (Anticoag Therapy) 0.91 (0.77-1.02) APTT 30.4 (26.0-36.3) seconds Sodium 137 (135-145) mmol/L Potassium 3.6 (3.5-5.0) mmol/L Chloride 102 (101-111) mmol/L Carbon Dioxide 27 (22-32) mmol/L Anion Gap 8 (2-11) mmol/L BUN 10 (6-24) mg/dL Creatinine 1.05 H (0.51-0.95) mg/dL Est GFR ( Amer) 73.2 (>60) Est GFR (Non-Af Amer) 56.9 (>60) BUN/Creatinine Ratio 9.5 (8-20) Glucose 85 (70-100) mg/dL Lactic Acid (0.5-2.0) mmol/L Calcium 9.9 (8.6-10.3) mg/dL Total Bilirubin 0.30 (0.2-1.0) mg/dL AST 13 (13-39) U/L ALT 8 (7-52) U/L Alkaline Phosphatase 49 (34-104) U/L C-Reactive Protein 7.71 H (< 5.00) mg/L Total Protein 8.0 (6.4-8.9) g/dL Albumin 4.4 (3.2-5.2) g/dL Globulin 3.6 (2-4) g/dL Albumin/Globulin Ratio 1.2 (1-3) // Range/Units 13:15 WBC (3.5-10.8) 10^3/ul RBC (4.00-5.40) 10^6/ul Hgb (12.0-16.0) g/dl Hct (35-47) % MCV (80-97) fL MCH (27-31) pg MCHC (31-36) g/dl RDW (10.5-15) % Plt Count (150-450) 10^3/ul MPV (7.4-10.4) um3 Neut % (Auto) (38-83) % Lymph % (Auto) (25-47) % [place] % (Auto) (0-7) % Eos % (Auto) (0-6) % Baso % (Auto) (0-2) % Absolute Neuts (auto) (1.5-7.7) 10^3/ul Absolute Lymphs (auto) (1.0-4.8) 10^3/ul Absolute Monos (auto) (0-0.8) 10^3/ul Absolute Eos (auto) (0-0.6) 10^3/ul Absolute Basos (auto) (0-0.2) 10^3/ul Absolute Nucleated RBC 10^3/ul Nucleated RBC % INR (Anticoag Therapy) (0.77-1.02) APTT (26.0-36.3) seconds Sodium (135-145) mmol/L Potassium (3.5-5.0) mmol/L Chloride (101-111) mmol/L Carbon Dioxide (22-32) mmol/L Anion Gap (2-11) mmol/L BUN (6-24) mg/dL Creatinine (0.51-0.95) mg/dL Est GFR ( Amer) (>60) Est GFR (Non-Af Amer) (>60) BUN/Creatinine Ratio (8-20) Glucose (70-100) mg/dL Lactic Acid 0.9 (0.5-2.0) mmol/L Calcium (8.6-10.3) mg/dL Total Bilirubin (0.2-1.0) mg/dL AST (13-39) U/L ALT (7-52) U/L Alkaline Phosphatase (34-104) U/L C-Reactive Protein (< 5.00) mg/L Total Protein (6.4-8.9) g/dL Albumin (3.2-5.2) g/dL Globulin (2-4) g/dL Albumin/Globulin Ratio (1-3) Result Diagrams: 11/23/17 13:15 11/23/17 13:15 Lab Statement: Any lab studies that have been ordered have been reviewed, and results considered in the medical decision making process. Re-Evaluation - Re-Evaluation First Eval Change: Improved - pain in Rt axilla and ROM improved s/p incision and drainage Course/Dx - Course Course Of Treatment: Pt presents w/ 2 axillary abscesses - I&D successful. Received 1 dose of vancomycin while here d/t her h/o MRSA and most likely worsening HIV status. Spoke w/ Dr. Gomez who will also f/u w/ pt to restart antiretrovirals. She will take bactrim at home to cover MRSA as well as other opportunistic infections from potentially low CD4 count. She will f/u w/ general surgery for wound care f/u. Pt agrees w/ plan. BP is elevated throughout her stay here - ordered home BP meds and sine she is asx, advised to return to taking home meds and close f/u w/ PCP. Discussed w/ Dr. Lai. - Diagnoses Provider Diagnoses: Abscess of right axilla, HIV infection, Hypertension Discharge - Sign-Out/Discharge Documenting (check all that apply): Discharge/Admit/Transfer - Discharge Plan Condition: Improved Disposition: HOME Prescriptions: HYDROcodone/ACETAMIN 5-325 MG* [[place] 5-325 TAB*] 1 tab PO Q6H PRN #20 tab MDD 4 PRN Reason: Pain Sulfamethox/Trimethoprim DS* [Bactrim DS 800/160 TAB*] 1 tab PO BID #20 tab Patient Education Materials: Abscess (ED), Incision and Drainage (ED), HIV Infection (ED), Hypertension (ED) Forms: *Work Release Referrals: Gildardo JADE,Evangelista Calderon [Medical Doctor] - Chapin Regalado MD [Medical Doctor] - Jose Jean MD [Medical Doctor] - Additional Instructions: Your abscesses were drained and packed today - it is important that you follow- up with Dr. Regalado's office (general surgery) for wound packing changes. Bactrim was sent to your pharmacy - take as directed. You may need to be on a longer course of this - make sure to follow-up with Dr. Gomez before you finish this course to prevent further infection as needed. I agree, using a non- antiperspirant deodorant may be helpful in preventing abscess in the future. For your HIV, you should receive a call from Dr. Gomez's office for follow- up and to restart medications. If you do not hear from him by tomorrow, call the office for follow-up care. Additionally, your blood pressure was very high here today. It is important that you restart your blood pressure medications in an effort to protect your cardiovascular health. If you develop chest pain, shortness of breath, change in vision, jaw pain, weakness/fatigue, headache, sweating, nausea, return to the ED. Call your PCP to follow up JOSE. - Billing Disposition and Condition Condition: IMPROVED Disposition: Home
[2017-11-23] MEDS ORDERED: Lidocaine 1% INJ* 10 MG/ML 30 ML SDV ONE (17:36)
[2017-11-23] MEDS ORDERED: Sulfamethox/Trimethoprim DS 800/160* TAB PO ONE (18:21)
[2017-11-23] MEDS ORDERED: Ibuprofen TAB* 800 MG PO ONE (18:21)
[2017-11-23] MEDS ORDERED: HYDROcodone/ACETAMIN 5-325 MG* 1 TAB PO ONE (18:21)
[2017-11-23] MEDS ORDERED: Lisinopril TAB* 10 MG PO ONE (18:25)
[2017-11-23] MEDS ORDERED: Hydrochlorothiazide TAB* 25 MG PO ONE (18:25)
[2017-11-23] MEDS ORDERED: amLODIPine TAB* 5 MG PO ONE (18:25)
[2017-11-23 19:04] VITALS: BP 170/90
--- NOTE | 2017-11-26 07:04 | PN ---
Progress Note - Progress Note Date of Service: 11/23/17 Note: Pt. seen in ER 11/23 for I and D of abscess. She was started on Bactrim. Final wound culture today is growing MRSA susceptible to Bactrim. No change in treatment needed at this time.
== END 2017-11-23 19:03 | disposition home or self-care (01) ==
LOC: ED 09:05
DX: L02.411 Cutaneous abscess of right axilla (principal); I10 Essential (primary) hypertension; Z21 Asymptomatic human immunodeficiency virus [HIV] infection status; F17.210 Nicotine dependence, cigarettes, uncomplicated; Z91.14 Patient's other noncompliance with medication regimen; Z86.19 Personal history of other infectious and parasitic diseases; Z88.8 Allergy status to other drugs, medicaments and biological substances
CPT/HCPCS: 10061; 36415; 80053; 83605; 85025; 85610; 85730; 86140; 86355; 86357; 86359; 86360; 87040; 87070; 87077; 87186; 87205; 87640; 87641; 96361; 96374; 96375; 99285; A9270-GY; J0780; J1885; J2060; J2270; J3370

== ENCOUNTER 2018-06-09 21:27 | Emergency (ER) | payer SELFPAY ==
--- NOTE | 2018-06-09 22:23 | ED ---
Complex/Multi-Sys Presentation - HPI Summary HPI Summary: A 42 y/o F presents to ED with c/o intermittent episodes of chest tightness ongoing for the past three weeks and becoming more frequent. Pt says that when she swallows, she feels as though her chest is "locking up." It happens whenever she eats or drinks regardless of temperature. Associated sx: post- nasal drip, vomiting, subjective fever, mild dyspnea, cough which has resolved. Denies dysphagia, sore throat. She says that she's hard GERD before but this isn 't the same. She describes the chest tightness as having a restricted airway and as being like "air bubbles." Alleviating factor: vomiting. She is a 1ppd smoker. PMHx: COPD, but is not on medications for it. - History Of Current Complaint Chief Complaint: EDUpperRespComplaint Time Seen by Provider: 06/09/18 22:18 Hx Obtained From: Patient Onset/Duration: Lasting Weeks, Still Present Timing: Intermittent, Lasting: Severity Currently: Moderate Severity Initially: Moderate Alleviating Factor(s): Vomiting Associated Signs And Symptoms: Positive: Cough - since resolved, Vomiting, Fever - subjective, Other - pos: mild dyspnea, post-nasal drip. neg: dysphagia, sore throat - Allergies/Home Medications Allergies/Adverse Reactions: Allergies Allergy/AdvReac Type Severity Reaction Status Date / Time carisoprodol [From [facility]] Allergy Headache Verified 11/23/17 09:19 PMH/Surg Hx/FS Hx/Imm Hx Previously Healthy: No Endocrine/Hematology History: Denies: Hx Anticoagulant Therapy, Hx Blood Disorders, Hx Diabetes Cardiovascular History: Reports: Hx Hypertension - poorly controlled - has meds , doesn't always take Denies: Hx Pacemaker/ICD Respiratory History: Reports: Hx Chronic Obstructive Pulmonary Disease (COPD) GI History: Reports: Hx Gastroesophageal Reflux Disease, Hx Irritable Bowel History: Denies: Hx Renal Disease Musculoskeletal History: Reports: Hx Orthopedic Injury - ankle surgery, Other Musculoskeletal History - RIGHT SHOULDER PAIN, CERVICAL DDD Sensory History: Denies: Hx Contacts or Glasses, Hx Hearing Aid Opthamlomology History: Denies: Hx Contacts or Glasses Psychiatric History: Reports: Hx Anxiety, Hx Depression - MAJOR DEPRESSION DISORDER Denies: Hx Panic Disorder - Surgical History Surgery Procedure, Year, and Place: 1992 [place]C, [place]. 2009 [place]Y, [place]. L [place]LE ORIF 07/23 [facility] [place]. Apr HARDWARE REMOVAL- PER PT THERE ARE STILL SOME SCREWS IN HER ANKLE Hx Anesthesia Reactions: No - Immunization History Date of Tetanus Vaccine: 2010 Date of Influenza Vaccine: has not received Infectious Disease History: Yes Infectious Disease History: Reports: Hx Human Immunodeficiency Virus (HIV) - off meds at present, Hx of Known/Suspected MRSA Denies: Traveled Outside the [place] in Last 30 Days - Family History Known Family History: Positive: Diabetes, Other - GRANDMOTHER HAD MANY STROKES. [place] Negative: Cardiac Disease - Social History Occupation: Employed Full-time Lives: Alone Alcohol Use: Occasionally Alcohol Amount: SOCIALLY Hx Substance Use: Yes Substance Use Type: Reports: Marijuana Substance Use Comment - Amount & Last Used: see consult report Hx Tobacco Use: Yes Smoking Status (MU): Current Every Day Smoker Type: Cigarettes Amount Used/How Often: 5-10 CIGS/DAY Length of Time of Smoking/Using Tobacco: 30 YRS Have You Smoked in the Last Year: Yes Review of Systems Positive: Fever - subjcetive Positive: Other - pos: post-nasal drip; neg: dysphagia. Negative: Sore Throat Positive: Chest Pain - "tightness" Positive: Cough - resolved, Other - pos: dyspnea Positive: Vomiting All Other Systems Reviewed And Are Negative: Yes Physical Exam - Summary Physical Exam Summary: Appearance: Well-appearing, Well-nourished, lying in bed comfortably Skin: Warm, dry, no obvious rash Eyes: sclera anicteric, no conjunctival pallor ENT: mucous membranes moist, pharynx appears normal Neck: Supple, nontender Respiratory: Clear to auscultation, no signs of respiratory distress Cardiovascular: Normal S1, S2. No murmurs. Normal distal pulses in tibial and radial bilaterally. Abdomen: Soft, nontender, normal active bowel sounds present Musculoskeletal: Normal, Strength/ROM Intact Neurological: A&Ox3, awake and alert, mentation is normal, speech is fluent and appropriate Psychiatric: affect is normal, does not appear anxious or depressed Triage Information Reviewed: Yes Vital Signs On Initial Exam: Initial Vitals Temp Pulse Resp BP Pulse Ox 99 F 80 16 183/115 100 06/09/18 21:29 06/09/18 21:29 06/09/18 21:29 06/09/18 21:29 06/09/18 21:29 Vital Signs Reviewed: Yes Diagnostics - Vital Signs Vital Signs Temp Pulse Resp BP Pulse Ox 06/09/18 21:29 99 F 80 16 183/115 100 - Laboratory Lab Statement: Any lab studies that have been ordered have been reviewed, and results considered in the medical decision making process. - Radiology CXR Radiology Interpretation Completed By: ED Physician Summary of Radiographic Findings: NAD. Re-Evaluation - Re-Evaluation 1 Re-Evaluation Time: 23:10 Change: Improved Comment: Discussing lab and CXR results with pt, and plan's for D/C. Complex Multi-Symp Course/Dx Course Of Treatment: Pt is a 42 y/o F with PMHx: COPD presenting with intermittent episodes of chest tightness ongoing for the past three weeks and becoming more frequent. Pt says that when she swallows, she feels as though her chest is "locking up.". CXR is unremarkable. Will D/C home with Albuterol, Zithro, Prednisone. - Diagnoses Provider Diagnoses: COPD exacerbation Discharge - Sign-Out/Discharge Documenting (check all that apply): Patient Departure - D/C - Discharge Plan Condition: Good Disposition: HOME Prescriptions: Albuterol HFA INHALER* [Ventolin HFA Inhaler*] 2 puff INH Q4H PRN #1 mdi PRN Reason: Dyspnea Azithromycin TAB* [Zithromax TAB (Z-NIRALI) 250 mg #6 tabs] 250 mg PO DAILY #4 tab predniSONE [Prednisone 20 MG TAB] 40 mg PO DAILY 5 Days #10 tablet Patient Education Materials: COPD (Chronic Obstructive Pulmonary Disease) (ED) Forms: *Work Release Referrals: [facility] [Outside] - 3 Days (if not improving) - Billing Disposition and Condition Condition: GOOD Disposition: Home - Attestation Statements Document Initiated by Scribe: Yes Documenting Scribe: Dav Cavazos Provider For Whom Shaunibnilesh is Documenting (Include Credential): Dr. Alex Crooks MD Scribe Attestation: Dav Moses scribed for Dr. Alex Crooks MD on 06/12/18 at 1847. Scribe Documentation Reviewed: Yes Provider Attestation: The documentation as recorded by the Dav edwards accurately reflects the service I personally performed and the decisions made by me, Dr. Alex Crooks MD Status of Scribe Document: Viewed
[2018-06-09] MEDS ORDERED: predniSONE TAB* 20 MG PO ONE (23:06)
[2018-06-09] MEDS ORDERED: Azithromycin TAB* 250 MG PO ONE (23:06)
[2018-06-09] MEDS ORDERED: Nicotine Inhaler* 10 MG AMP INH ONE (23:12)
[2018-06-09] MEDS ORDERED: Mouth Piece, Nicotine* 1 EACH CARTRIDGE ONE (23:39)
[2018-06-10 00:09] VITALS: BP 198/119
== END 2018-06-10 00:17 | disposition home or self-care (01) ==
LOC: ED 21:27
DX: J44.1 Chronic obstructive pulmonary disease with (acute) exacerbation (principal); K21.9 Gastro-esophageal reflux disease without esophagitis; K58.9 Irritable bowel syndrome, unspecified; F17.210 Nicotine dependence, cigarettes, uncomplicated
CPT/HCPCS: 71046; 99283; A9270-GY; J7512

== ENCOUNTER 2018-10-20 13:56 | Emergency (ER) | payer SELFPAY ==
[2018-10-20] MEDS ORDERED: Lidocaine 1%* 5 ML VIAL INJ ONE (14:16)
[2018-10-20] MEDS ORDERED: LORazepam TAB(*) 1 MG PO ONE (14:39)
[2018-10-20] MEDS ORDERED: Ketorolac INJ* 60 MG/2 ML VIAL IM ONE (14:39)
[2018-10-20 16:39] VITALS: BP 158/118
--- NOTE | 2018-10-20 17:19 | ED ---
Skin Complaint - HPI Summary HPI Summary: Patient is a 43-year-old female who presents emergency department for abscess to right axilla 3-4 days. Patient states she has a history of MRSA and abscesses and has seen surgery in the past for pilonidal cyst. Patient noticed a bump to her right armpit over the last several days it has progressively gotten larger and more painful. Patient denies fever, chills, nausea, vomiting. Past hx of HTN and HIV, does not appear to be receiving tx at this time. Symptoms are mild in severity. Touching area makes symptoms worse. Nothing makes symptoms better. - History of Current Complaint Chief Complaint: EDRashSkinAbscess Time Seen by Provider: 10/20/18 14:12 Stated Complaint: GROWTH IN ARMPIT PER PT Hx Obtained From: Patient Pain Intensity: 5 Pain Scale Used: 0-10 Numeric - Additional Pertinent History Primary Care Physician: [id number] - Allergy/Home Medications Allergies/Adverse Reactions: Allergies Allergy/AdvReac Type Severity Reaction Status Date / Time carisoprodol [From [facility]] Allergy Headache Verified 10/20/18 14:02 PMH/Surg Hx/FS Hx/Imm Hx Previously Healthy: Yes Endocrine/Hematology History: Denies: Hx Anticoagulant Therapy, Hx Blood Disorders, Hx Diabetes Cardiovascular History: Reports: Hx Hypertension - poorly controlled - has meds , doesn't always take Denies: Hx Pacemaker/ICD Respiratory History: Reports: Hx Chronic Obstructive Pulmonary Disease (COPD) GI History: Reports: Hx Gastroesophageal Reflux Disease, Hx Irritable Bowel History: Denies: Hx Renal Disease Musculoskeletal History: Reports: Hx Orthopedic Injury - ankle surgery, Other Musculoskeletal History - RIGHT SHOULDER PAIN, CERVICAL DDD Sensory History: Denies: Hx Contacts or Glasses, Hx Hearing Aid Opthamlomology History: Denies: Hx Contacts or Glasses Psychiatric History: Reports: Hx Anxiety, Hx Depression - MAJOR DEPRESSION DISORDER Denies: Hx Panic Disorder - Surgical History Surgery Procedure, Year, and Place: 1992 D&C, [place]. 2008 [place]OMY, [place]. [place] 07/23 [facility] [place]. Apr HARDWARE REMOVAL- PER PT THERE ARE STILL SOME SCREWS IN HER ANKLE Hx Anesthesia Reactions: No - Immunization History Date of Tetanus Vaccine: 2010 Date of Influenza Vaccine: has not received Infectious Disease History: No Infectious Disease History: Reports: Hx Human Immunodeficiency Virus (HIV) - off meds at present, Hx of Known/Suspected MRSA Denies: Traveled Outside the [place] in Last 30 Days - Family History Known Family History: Positive: Diabetes, Other - GRANDMOTHER HAD MANY STROKES. [place] Negative: Cardiac Disease - Social History Occupation: Employed Full-time Lives: With Family Alcohol Use: Occasionally Alcohol Amount: SOCIALLY Hx Substance Use: Yes Substance Use Type: Reports: Marijuana Substance Use Comment - Amount & Last Used: occasional use Hx Tobacco Use: Yes Smoking Status (MU): Current Every Day Smoker Type: Cigarettes Amount Used/How Often: 5-10 CIGS/DAY Length of Time of Smoking/Using Tobacco: 30 YRS Have You Smoked in the Last Year: Yes Review of Systems Constitutional: Negative Negative: Fever, Chills Respiratory: Negative Negative: Vomiting, Nausea Positive: Other - abscess to right axilla All Other Systems Reviewed And Are Negative: Yes Physical Exam Triage Information Reviewed: Yes Vital Signs On Initial Exam: Initial Vitals Temp Pulse Resp BP Pulse Ox 97.8 F 72 16 178/118 100 10/20/18 13:58 10/20/18 13:58 10/20/18 13:58 10/20/18 13:58 10/20/18 13:58 Vital Signs Reviewed: Yes Appearance: Positive: Well-Appearing - Pt. lying on bed with right arm over head in NAD. Skin: Positive: Warm, Dry, Other - Noted to the right axilla there is a roughly 3 cm area of erythema, flucutance and tenderness. No surrounding erythema. No drainage. Head/Face: Positive: Normal Head/Face Inspection Eyes: Positive: Normal, EOMI, LINA Neck: Positive: Supple Musculoskeletal: Positive: Normal, Strength/ROM Intact Neurological: Positive: Normal, CN Intact II-III Psychiatric: Positive: Affect/Mood Appropriate Procedures - Incision and Drainage Right Distal Axilla Site: right axilla Anesthesia: Lidocaine Instrument(s): Scalpel - moderate amount of purulent matter expressed Packing: Gauze Diagnostics - Vital Signs Vital Signs Temp Pulse Resp BP Pulse Ox 10/20/18 16:24 98.6 F 62 18 158/118 100 10/20/18 14:53 18 10/20/18 13:58 97.8 F 72 16 178/118 100 - Laboratory Lab Statement: Any lab studies that have been ordered have been reviewed, and results considered in the medical decision making process. Course/Dx - Course Assessment/Plan: Pt. presenting with right axilla abscess. Afebrile and nontoxic appearing. BP noted to be elevated. Pt. notes she did not taker her Lisinopril. Pt. states that she has needed to be sedated to have abscesses drained in the past and is asking for sedating medication. Pt. was given a dose of IM toradol and 1mg PO ativan. Abscess was drained as noted above. Will cover MRSA with bactrim. Pt. requesting pain medication and a small rx given. To apply warm compresses. F.u with PCP in 48 for packing removal/change. Will return to ER if sxs change or worsen. Advised to taker her BP med as soon as she gets home. Pt. understands and agrees with plan. - Differential Diagnoses - Skin Complaint Differential Diagnoses: Abscess, Cellulitis - Diagnoses Provider Diagnoses: Abscess Discharge - Sign-Out/Discharge Documenting (check all that apply): Patient Departure Patient Received Moderate/Deep Sedation with Procedure: No - Discharge Plan Condition: Improved Disposition: HOME Prescriptions: Hydrocodone/Acetaminophen [Hydrocodone/Acetaminophen 5-325 mg] 1 tab PO Q6H #8 tab MDD 4 Sulfamethox/Trimethoprim DS* [Bactrim DS 800/160 TAB*] 1 tab PO BID #20 tab Patient Education Materials: Abscess (ED) Forms: *Work Release Referrals: Alberto Mack MD [Medical Doctor] - Additional Instructions: Follow up with PCP in 48 hours for packing removal/change Take antibiotics as directed Apply warm compresses Return to ER if symptoms change or worsen - Billing Disposition and Condition Condition: IMPROVED Disposition: Home
== END 2018-10-20 16:41 | disposition home or self-care (01) ==
LOC: ED 13:56
DX: L02.411 Cutaneous abscess of right axilla (principal); J44.9 Chronic obstructive pulmonary disease, unspecified; K21.9 Gastro-esophageal reflux disease without esophagitis; F17.210 Nicotine dependence, cigarettes, uncomplicated; Z86.14 Personal history of Methicillin resistant Staphylococcus aureus infection
CPT/HCPCS: 96372; 96374; 99282; A9270-GY; J1885

== ENCOUNTER 2019-01-08 01:24 | Emergency (ER) | payer SELFPAY ==
[2019-01-08] MEDS ORDERED: Silver Sulfadiazine 1%* 20 GM TOPICAL ONE (01:54)
[2019-01-08] MEDS ORDERED: Ketorolac INJ* 30 MG/ML 1 ML VIAL IM ONE (01:55)
[2019-01-08] MEDS ORDERED: Cephalexin CAP* 500 MG PO ONE (01:55)
--- NOTE | 2019-01-08 01:56 | ED ---
Burn - HPI Summary HPI Summary: 43 year old female presents with burning on right foot 2 weeks ago. She states that hot oil sprayed on her right foot. States that there was a blister and she decided to pop it. She states that after she popped it she had increasing pain. She states she's been having a little drainage from the wound. She denies any fevers. No spreading redness. States joe on toes have been healing. States that hurts when walks on foot and when objects touch the area. He has been applying topical antibiotics and keeping it covered. Is not diabetic. - History of Current Complaint Chief Complaint: EDBurnSmokeInsolo Stated Complaint: 3RD DEGREE BURN ON RT FOOT PER PT Time Seen by Provider: 01/08/19 01:47 Pain Intensity: 9 - Allergy/Home Medications Allergies/Adverse Reactions: Allergies Allergy/AdvReac Type Severity Reaction Status Date / Time carisoprodol [From [facility]] Allergy Headache Verified 01/08/19 01:55 PMH/Surg Hx/FS Hx/Imm Hx Endocrine/Hematology History: Denies: Hx Anticoagulant Therapy, Hx Blood Disorders, Hx Diabetes Cardiovascular History: Reports: Hx Hypertension - poorly controlled - has meds , doesn't always take Denies: Hx Pacemaker/ICD Respiratory History: Reports: Hx Chronic Obstructive Pulmonary Disease (COPD) GI History: Reports: Hx Gastroesophageal Reflux Disease, Hx Irritable Bowel History: Denies: Hx Renal Disease Musculoskeletal History: Reports: Hx Orthopedic Injury - ankle surgery, Other Musculoskeletal History - RIGHT SHOULDER PAIN, CERVICAL DDD Sensory History: Denies: Hx Contacts or Glasses, Hx Hearing Aid Opthamlomology History: Denies: Hx Contacts or Glasses Psychiatric History: Reports: Hx Anxiety, Hx Depression - MAJOR DEPRESSION DISORDER Denies: Hx Panic Disorder - Surgical History Surgery Procedure, Year, and Place: 1992 D&C, [place]. 2008 [place]OMY, [place]. L ANKLE ORIF 07/23 [facility] [place]. Apr HARDWARE REMOVAL- PER PT THERE ARE STILL SOME SCREWS IN HER ANKLE Hx Anesthesia Reactions: No - Immunization History Date of Tetanus Vaccine: 2010 Date of Influenza Vaccine: has not received Infectious Disease History: Yes Infectious Disease History: Reports: Hx Human Immunodeficiency Virus (HIV) - off meds at present, Hx of Known/Suspected MRSA Denies: Traveled Outside the [place] in Last 30 Days - Family History Known Family History: Positive: Diabetes, Other - GRANDMOTHER HAD MANY STROKES. [place] Negative: Cardiac Disease - Social History Alcohol Use: Occasionally Alcohol Amount: SOCIALLY Hx Substance Use: Yes Substance Use Type: Reports: Marijuana Substance Use Comment - Amount & Last Used: occasional use Hx Tobacco Use: Yes Smoking Status (MU): Current Every Day Smoker Type: Cigarettes Amount Used/How Often: 5-10 CIGS/DAY Length of Time of Smoking/Using Tobacco: 30 YRS Have You Smoked in the Last Year: Yes Review of Systems Negative: Fever Negative: Chest Pain Negative: Shortness Of Breath Positive: Other - right foot burn All Other Systems Reviewed And Are Negative: Yes Physical Exam Triage Information Reviewed: Yes Vital Signs On Initial Exam: Initial Vitals Temp Pulse Resp BP Pulse Ox 97.6 F 80 18 181/108 100 01/08/19 01:26 01/08/19 01:01/08/19 01:01/08/19 01:01/08/19 01:26 Vital Signs Reviewed: Yes Appearance: Positive: Well-Appearing Skin: Positive: Warm, Dry, Other - 3cm by 2cm ulcer on right foot with no erythema, healing burn on 3-4th toes Head/Face: Positive: Normal Head/Face Inspection Eyes: Positive: Normal, Conjunctiva Clear ENT: Positive: Pharynx normal Respiratory/Lung Sounds: Positive: Clear to Auscultation, Breath Sounds Present Cardiovascular: Positive: Normal, RRR Musculoskeletal: Positive: Strength/ROM Intact - right foot, Other - good pulses Neurological: Positive: Normal Psychiatric: Positive: Normal Burn Calculation - [place] Formula for Fluid Resuscitation Weight: 76.204 kg 24 -Hour Fluid Replacement: 0.0 Diagnostics - Vital Signs Vital Signs Temp Pulse Resp BP Pulse Ox 01/08/19 01:26 97.6 F 80 18 181/108 100 - Laboratory Lab Statement: Any lab studies that have been ordered have been reviewed, and results considered in the medical decision making process. Burn Course/Dx - Course Course Of Treatment: 43 year old female presents with burning on right foot 2 weeks ago. She states that hot oil sprayed on her right foot. States that there was a blister and she decided to pop it. She states that after she popped it she had increasing pain. She states she's been having a little drainage from the wound. She denies any fevers. No spreading redness. States joe on toes have been healing. States that hurts when walks on foot and when objects touch the area. He has been applying topical antibiotics and keeping it covered. Is not diabetic. On exam has 2 cm by 3cm ulcer type lesion to the top right foot. Also has healing second-degree joe of [address] Will place patient on Keflex due to worsening symptoms. Also gave patient Silvadene to keep the area covered. Will take Tylenol and ibuprofen for pain. Patient understands agrees with plan. - Diagnoses Differential Diagnoses: Positive: Direct Contact Thermal Burn, Other - cellulitis, abscess Provider Diagnosis: Second degree burn of right foot Discharge - Sign-Out/Discharge Documenting (check all that apply): Patient Departure Patient Received Moderate/Deep Sedation with Procedure: No - Discharge Plan Condition: Good Disposition: HOME Prescriptions: Cephalexin CAP* [Keflex CAP*] 500 mg PO BID #13 cap Patient Education Materials: Second Degree Burn (ED) Forms: *Work Release Referrals: [facility] [place] [facility] REFERR[facility] [Outside] Additional Instructions: Apply silvadene to area twice a day and cover area Take ibuprofen or tyenlol for pain every 6 hour take keflex twice a day for 7 days Establish care with primary for follow up Return to ED if develop fever, spreading redness, or any new or worsening symptoms - Billing Disposition and Condition Condition: GOOD Disposition: Home
[2019-01-08 02:36] VITALS: BP 167/114
== END 2019-01-08 02:30 | disposition home or self-care (01) ==
LOC: ED 01:24
DX: T25.221A Burn of second degree of right foot, initial encounter (principal); T25.231A Burn of second degree of right toe(s) (nail), initial encounter; X10.2XXA Contact with fats and cooking oils, initial encounter; Y92.9 Unspecified place or not applicable; I10 Essential (primary) hypertension; Z88.8 Allergy status to other drugs, medicaments and biological substances; J44.9 Chronic obstructive pulmonary disease, unspecified; F17.210 Nicotine dependence, cigarettes, uncomplicated
CPT/HCPCS: 96372; 99282; A9270-GY; J1885

== ENCOUNTER 2022-12-22 20:43 | Inpatient (IN) ==
[2022-12-22] MEDS ORDERED: Lactated Ringers 1000 ml BAG 1,000 ML IV ONE (21:03)
[2022-12-22 23:19] LABS: Hematocrit 34.8 % (35-45); Hemoglobin 11.8 g/dL (11.5-14.3); Mean Corpuscular Hemoglobin 31.7 pg (27-33); Mean Corpuscular Volume 93.3 fL (80-97); Platelet Count 173 10^3/uL (150-450); Red Blood Count 3.73 10^6/uL (3.63-4.92); Red Cell Distribution Width 12.8 % (12-17); White Blood Count 1.4 10^3/uL (3.8-11.8)
[2022-12-22 23:35] LABS: Albumin 3.9 g/dL (3.2-5.2); Albumin/Globulin Ratio 0.9 (1-3); C Reactive Protein 290.13 mg/L (<8.01); Calcium 9.7 mg/dL (8.6-10.3); Creatinine, Serum 1.34 mg/dL (0.51-0.95); Globulin 4.3 g/dL (2-4); Total Bilirubin 0.7 mg/dL (0.2-1.0); Total Protein 8.2 g/dL (6.4-8.9); eGFR CKD-EPI 48.6 (>60)
[2022-12-22 23:41] LABS: Activated Partial Thrombo Time 28.5 seconds (26.0-38.0); INR 1.35 (0.88-1.18)
[2022-12-22] MEDS ORDERED: Iodixanol (CONTRAST) 320 MG/ML 100 ML SDV IV ONE (23:45)
[2022-12-23 00:34] LABS: RBC Morphology Normal (Normal)
[2022-12-23 00:37] LABS: ABS Lymphocytes 0.3 10^3/uL (1.0-4.8); ABS Monocytes 0.8 10^3/uL (0.0-0.9); ABS Neutrophils 0.2 10^3/uL (1.5-7.6); Eosinophil % 3.2 %; Lymphocyte % 21.6 %; Nucleated Red Blood Cells % 0.1 /100 WBC (0.0-0.4)
[2022-12-23] MEDS ORDERED: Piperacillin/Tazobac ADVAN 3.375 GM in NS 0.9% 100 ml BAG 100 ML IV ONE (01:32)
[2022-12-23] MEDS ORDERED: Morphine 4 MG/ML VIAL (1 ml) IV ONE (01:33)
[2022-12-23] MEDS ORDERED: Potassium Chloride LIQUID 20 MEQ/15 ML LIQUID PO ONE (04:19)
[2022-12-23 04:32] LABS: Hematocrit 33.6 % (35-45); Hemoglobin 11.4 g/dL (11.5-14.3); Mean Corpuscular Hemoglobin 31.6 pg (27-33); Mean Corpuscular Hgb Conc 33.9 g/dL (31-36); Mean Corpuscular Volume 93.4 fL (80-97); Mean Platelet Volume 8.5 fL (7.5-11.2); Platelet Count 155 10^3/uL (150-450); Red Cell Distribution Width 13.2 % (12-17); White Blood Count 1.2 10^3/uL (3.8-11.8)
[2022-12-23 04:49] LABS: Calcium 9.1 mg/dL (8.6-10.3); Creatinine, Serum 1.07 mg/dL (0.51-0.95); Magnesium 1.6 mg/dL (1.9-2.7); eGFR CKD-EPI 63.7 (>60)
[2022-12-23 04:51] LABS: RBC Morphology Normal (Normal)
[2022-12-23 04:53] LABS: ABS Eosinophils 0.1 10^3/uL (0.0-0.5); ABS Lymphocytes 0.3 10^3/uL (1.0-4.8); ABS Monocytes 0.7 10^3/uL (0.0-0.9); ABS Neutrophils 0.2 10^3/uL (1.5-7.6); Eosinophil % 4.1 %; Lymphocyte % 23.3 %; Nucleated Red Blood Cells % 0.3 /100 WBC (0.0-0.4); Potassium 2.6 mmol/L (3.5-5.0)
[2022-12-23] MEDS ORDERED: Magnesium Sulfate 2 gm BAG 2 GM/50 ML BAG IVPB ONE (04:55)
[2022-12-23] MEDS ORDERED: Fluconazole 400 MG IVPREMIX 400 MG/200 ML BAG IVPB SCH (05:00)
[2022-12-23] MEDS ORDERED: Fluconazole 100 MG IVPREMIX 100 MG/50 ML BAG IVPB SCH (05:00)
[2022-12-23] MEDS ORDERED: Zosyn per Pharmacy NOTE FOLLOW UP SCH (05:00)
[2022-12-23] MEDS: Enoxaparin 40 MG/0.4 ML SYR SUBCUT SCH (05:52)
[2022-12-23] MEDS ORDERED: HYDROmorphone 1 MG/1 ML SYRINGE IV SLOW PU ONE ×2 (07:32→07:34)
[2022-12-23] MEDS ORDERED: Potassium Chlor 20 meq TAB.ER PO SCH (09:00)
[2022-12-23] MEDS: KCL 20 MEQ/100 ML IVPREMIX 20 MEQ/100 ML BAG IV SCH ×4 (10:03→20:47)
[2022-12-23] MEDS: ZOSYN 3.375 GM Q8H per EXTENDED INFUSION IV SCH ×2 (10:04→17:20)
[2022-12-23 13:36] LABS: High Sensitivity Troponin 1 Hr 17 pg/mL (<15)
[2022-12-23] MEDS ORDERED: Lidocaine 5% OINT TUBE TOPICAL PRN (14:48)
[2022-12-23] MEDS ORDERED: fentaNYL 100 mcg/2 ml 50 MCG/ML VIAL ONE (15:22)
[2022-12-23] MEDS ORDERED: Midazolam 10 mg/10 ml VIAL 1 mg/ml 10 ml VIAL (10 mg) ONE (15:22)
[2022-12-23] MEDS: Chlorhexidine MOUTHWASH 0.12% 15 ML UDC SWISH SPIT SCH ×2 (17:06→22:50)
[2022-12-23] MEDS ORDERED: Midazolam 10 mg/10 ml VIAL 1 mg/ml 10 ml VIAL (10 mg) IV SLOW PU ONE (17:28)
[2022-12-23] MEDS ORDERED: fentaNYL 100 mcg/2 ml 50 MCG/ML VIAL IV SLOW PU ONE (17:28)
[2022-12-23 19:26] LABS: Calcium 9.1 mg/dL (8.6-10.3); Creatinine, Serum 1.07 mg/dL (0.51-0.95); Magnesium 2.2 mg/dL (1.9-2.7); Potassium 3.9 mmol/L (3.5-5.0); eGFR CKD-EPI 63.7 (>60)
[2022-12-23] MEDS ORDERED: KCL 20 MEQ/100 ML IVPREMIX 20 MEQ/100 ML BAG IV SCH (20:00)
[2022-12-23] MEDS: Benzocaine (plain) Lozenge 15 MG MT SCH ×2 (20:47→21:01)
[2022-12-24] MEDS: ZOSYN 3.375 GM Q8H per EXTENDED INFUSION IV SCH ×4 (00:42→17:53)
[2022-12-24] MEDS ORDERED: Lidocaine 4% TOPICAL 50 ML TOP.SOLN ONE (03:30)
[2022-12-24] MEDS: ACYCLOVIR IVPB SCH ×3 (03:49→20:30)
[2022-12-24] MEDS: NS 0.9% IVPB SCH ×3 (03:49→20:30)
[2022-12-24 06:09] LABS: Hematocrit 28.9 % (35-45); Hemoglobin 9.8 g/dL (11.5-14.3); Mean Corpuscular Hemoglobin 31.6 pg (27-33); Mean Corpuscular Hgb Conc 34.1 g/dL (31-36); Mean Corpuscular Volume 92.6 fL (80-97); Platelet Count 140 10^3/uL (150-450); Red Blood Count 3.12 10^6/uL (3.63-4.92); Red Cell Distribution Width 13.2 % (12-17); White Blood Count 1.1 10^3/uL (3.8-11.8)
[2022-12-24] MEDS: Fluconazole 400 MG IVPREMIX 400 MG/200 ML BAG IVPB SCH (06:23)
[2022-12-24 06:26] LABS: Albumin/Globulin Ratio 0.8 (1-3); Calcium 8.8 mg/dL (8.6-10.3); Creatinine, Serum 1.02 mg/dL (0.51-0.95); Globulin 3.6 g/dL (2-4); Potassium 3.5 mmol/L (3.5-5.0); Total Bilirubin 0.4 mg/dL (0.2-1.0); Total Protein 6.6 g/dL (6.4-8.9); eGFR CKD-EPI 67.4 (>60)
[2022-12-24 07:03] LABS: ABS Eosinophils 0.3 10^3/uL (0.0-0.5); ABS Lymphocytes 0.2 10^3/uL (1.0-4.8); ABS Monocytes 0.4 10^3/uL (0.0-0.9); ABS Neutrophils 0.1 10^3/uL (1.5-7.6); ABS Nucleated RBC 0.01 10^3/ul; Eosinophil % 28.8 %; Lymphocyte % 19.2 %; Nucleated Red Blood Cells % 0.5 /100 WBC (0.0-0.4)
[2022-12-24] MEDS: Benzocaine (plain) Lozenge 15 MG MT SCH (07:57)
[2022-12-24] MEDS: Enoxaparin 40 MG/0.4 ML SYR SUBCUT SCH (09:02)
[2022-12-24] MEDS: Chlorhexidine MOUTHWASH 0.12% 15 ML UDC SWISH SPIT SCH ×3 (09:02→20:22)
[2022-12-24] MEDS: Magic MW-DIPH/MAG-AL-SIME/LIDO FIRST BLM KIT SWISH SPIT SCH ×2 (11:42→16:57)
[2022-12-24] MEDS: Pantoprazole VIAL 40 MG VIAL IV SCH (11:42)
[2022-12-24] MEDS ORDERED: hydrALAZINE 20 mg/ml 1 ML Vial IV IV SLOW PU ONE (14:39)
[2022-12-24] MEDS: HYDROmorphone 1 MG/1 ML SYRINGE IV SLOW PU PRN (18:06)
[2022-12-24 21:22] LABS: HIV-1 RNA (PCR) 13200 copies/mL (Undetected)
[2022-12-25] MEDS: ZOSYN 3.375 GM Q8H per EXTENDED INFUSION IV SCH ×2 (00:01→10:43)
[2022-12-25] MEDS: HYDROmorphone 0.5 MG/0.5 ML SYRINGE IV SLOW PU PRN (03:20)
[2022-12-25] MEDS: NS 0.9% IVPB SCH ×2 (03:27→12:25)
[2022-12-25] MEDS: ACYCLOVIR IVPB SCH ×2 (03:27→12:25)
[2022-12-25] MEDS: Fluconazole 400 MG IVPREMIX 400 MG/200 ML BAG IVPB SCH (04:42)
[2022-12-25] MEDS: Enoxaparin 40 MG/0.4 ML SYR SUBCUT SCH (05:07)
[2022-12-25 06:16] LABS: Hematocrit 29.6 % (35-45); Hemoglobin 9.9 g/dL (11.5-14.3); Mean Corpuscular Hemoglobin 31.5 pg (27-33); Mean Corpuscular Hgb Conc 33.4 g/dL (31-36); Mean Corpuscular Volume 94.3 fL (80-97); Mean Platelet Volume 8.8 fL (7.5-11.2); Platelet Count 142 10^3/uL (150-450); Red Blood Count 3.14 10^6/uL (3.63-4.92)
[2022-12-25 06:34] LABS: Albumin 3.1 g/dL (3.2-5.2); Albumin/Globulin Ratio 0.9 (1-3); Calcium 8.6 mg/dL (8.6-10.3); Globulin 3.3 g/dL (2-4); Magnesium 1.6 mg/dL (1.9-2.7); Potassium 3.3 mmol/L (3.5-5.0); Total Bilirubin 0.4 mg/dL (0.2-1.0); Total Protein 6.4 g/dL (6.4-8.9); eGFR CKD-EPI 69.1 (>60)
[2022-12-25] MEDS ORDERED: Magnesium Sulfate 2 gm BAG 2 GM/50 ML BAG IVPB ONE (08:05)
[2022-12-25] MEDS ORDERED: KCL 10 MEQ/50 ML IVPREMIX 10 MEQ/50 ML BAG IV ONE (08:07)
[2022-12-25] MEDS: Pantoprazole VIAL 40 MG VIAL IV SCH (09:40)
[2022-12-25] MEDS: HYDROmorphone 1 MG/1 ML SYRINGE IV SLOW PU PRN ×3 (09:40→22:08)
[2022-12-25] MEDS: Magic MW-DIPH/MAG-AL-SIME/LIDO FIRST BLM KIT SWISH SPIT SCH ×3 (09:44→16:18)
[2022-12-25] MEDS: Chlorhexidine MOUTHWASH 0.12% 15 ML UDC SWISH SPIT SCH ×3 (09:45→22:17)
[2022-12-25] MEDS ORDERED: Bictegravir/Emtricit/Tenofov 1 TABLET PO SCH (11:00)
[2022-12-25] MEDS: metroNIDAZOLE IV 500 MG/100ML 500 MG/100 ML BAG IVPB SCH (13:32)
[2022-12-25] MEDS: cefTRIAXone 1 gm/50 mL D5W 1 GM/50 ML BAG IV SCH (13:33)
[2022-12-25] MEDS: Tenofovir/Emtricitab 300/200 MG TAB PO SCH ×2 (13:46→15:59)
[2022-12-25 16:19] LABS: % CD3 45 % (58-86); % CD4 1 % (32-64); % CD8 41 % (13-40); Absolute CD45 Count 0.25 thou/mcL (0.82-2.84); CD3 112 cells/mcL (550-2202); CD4 3 cells/mcL (365-1437); CD8 102 cells/mcL (145-846)
[2022-12-26] MEDS: metroNIDAZOLE IV 500 MG/100ML 500 MG/100 ML BAG IVPB SCH ×2 (01:11→14:38)
[2022-12-26] MEDS: HYDROmorphone 1 MG/1 ML SYRINGE IV SLOW PU PRN ×4 (02:31→21:48)
[2022-12-26] MEDS: Fluconazole 400 MG IVPREMIX 400 MG/200 ML BAG IVPB SCH (05:49)
[2022-12-26] MEDS: Enoxaparin 40 MG/0.4 ML SYR SUBCUT SCH (05:49)
[2022-12-26 06:09] LABS: Hematocrit 29.6 % (35-45); Hemoglobin 10.3 g/dL (11.5-14.3); Mean Corpuscular Hemoglobin 32.3 pg (27-33); Mean Corpuscular Hgb Conc 34.9 g/dL (31-36); Mean Corpuscular Volume 92.5 fL (80-97); Mean Platelet Volume 8.9 fL (7.5-11.2); Platelet Count 153 10^3/uL (150-450); Red Cell Distribution Width 13.3 % (12-17)
[2022-12-26 08:44] LABS: RBC Morphology Normal (Normal)
[2022-12-26 08:45] LABS: ABS Eosinophils 0.2 10^3/uL (0.0-0.5); ABS Lymphocytes 0.3 10^3/uL (1.0-4.8); ABS Monocytes 0.4 10^3/uL (0.0-0.9); ABS Neutrophils 0.1 10^3/uL (1.5-7.6); ABS Nucleated RBC 0.01 10^3/ul; Eosinophil % 23.9 %; Lymphocyte % 30.5 %; Nucleated Red Blood Cells % 0.6 /100 WBC (0.0-0.4)
[2022-12-26] MEDS: Pantoprazole VIAL 40 MG VIAL IV SCH (10:03)
[2022-12-26] MEDS: Chlorhexidine MOUTHWASH 0.12% 15 ML UDC SWISH SPIT SCH ×4 (10:03→21:36)
[2022-12-26] MEDS: Magic MW-DIPH/MAG-AL-SIME/LIDO FIRST BLM KIT SWISH SPIT SCH ×3 (10:03→17:31)
[2022-12-26] MEDS: cefTRIAXone 1 gm/50 mL D5W 1 GM/50 ML BAG IV SCH (11:53)
[2022-12-26] MEDS ORDERED: Sulfamethox/Trimethoprim SUSP 800-160mg/20 ML UDC PO SCH (12:00)
[2022-12-26] MEDS: RALTEGRAVIR 100 MG PO SCH ×2 (12:32→21:57)
[2022-12-26] MEDS: Tenofovir/Emtricitab 300/200 MG TAB PO SCH (12:32)
[2022-12-26] MEDS ORDERED: hydrALAZINE 20 mg/ml 1 ML Vial IV IV SLOW PU ONE (14:15)
[2022-12-26] MEDS: Petroleum Jelly 1.75 Oz (small jar) TOPICAL SCH ×2 (14:38→21:44)
[2022-12-26 22:09] LABS: HSV 1,PCR Negative (Negative); HSV 2, PCR Negative (Negative); Specimen Source ESOPHAGEAL BRUSHING
[2022-12-27] MEDS: metroNIDAZOLE IV 500 MG/100ML 500 MG/100 ML BAG IVPB SCH ×2 (00:47→13:32)
[2022-12-27] MEDS: hydrALAZINE 20 mg/ml 1 ML Vial IV IV SLOW PU PRN ×2 (01:04→10:50)
[2022-12-27] MEDS: HYDROmorphone 1 MG/1 ML SYRINGE IV SLOW PU PRN ×4 (02:20→21:35)
[2022-12-27] MEDS: Fluconazole 400 MG IVPREMIX 400 MG/200 ML BAG IVPB SCH (05:38)
[2022-12-27] MEDS: Enoxaparin 40 MG/0.4 ML SYR SUBCUT SCH (05:47)
[2022-12-27 06:40] LABS: Hematocrit 32.6 % (35-45); Hemoglobin 10.9 g/dL (11.5-14.3); Mean Corpuscular Hemoglobin 31.8 pg (27-33); Mean Corpuscular Hgb Conc 33.5 g/dL (31-36); Mean Corpuscular Volume 94.7 fL (80-97); Mean Platelet Volume 8.9 fL (7.5-11.2); Platelet Count 175 10^3/uL (150-450); Red Blood Count 3.44 10^6/uL (3.63-4.92); Red Cell Distribution Width 13.2 % (12-17)
[2022-12-27 06:48] LABS: Calcium 9.1 mg/dL (8.6-10.3); Creatinine, Serum 0.8 mg/dL (0.51-0.95); Magnesium 1.6 mg/dL (1.9-2.7); Potassium 3.4 mmol/L (3.5-5.0); eGFR CKD-EPI 90.3 (>60)
[2022-12-27 07:05] LABS: Hypochromasia 1+; Polychromasia 1+
[2022-12-27 07:07] LABS: ABS Eosinophils 0.2 10^3/uL (0.0-0.5); ABS Lymphocytes 0.4 10^3/uL (1.0-4.8); ABS Monocytes 0.4 10^3/uL (0.0-0.9); ABS Neutrophils 0.1 10^3/uL (1.5-7.6); ABS Nucleated RBC 0.01 10^3/ul; Eosinophil % 14.9 %
[2022-12-27] MEDS ORDERED: Acetaminophen IV 1 GM/100ML 1,000 MG/100 ML BAG IV PRN (07:36)
[2022-12-27] MEDS: Magic MW-DIPH/MAG-AL-SIME/LIDO FIRST BLM KIT SWISH SPIT SCH ×3 (07:52→16:51)
[2022-12-27] MEDS: Chlorhexidine MOUTHWASH 0.12% 15 ML UDC SWISH SPIT SCH ×3 (07:53→21:48)
[2022-12-27] MEDS: Petroleum Jelly 1.75 Oz (small jar) TOPICAL SCH ×3 (09:26→21:48)
[2022-12-27] MEDS: Pantoprazole VIAL 40 MG VIAL IV SCH (09:26)
[2022-12-27] MEDS: RALTEGRAVIR 100 MG PO SCH ×2 (09:27→21:34)
[2022-12-27] MEDS: Tenofovir/Emtricitab 300/200 MG TAB PO SCH (09:28)
[2022-12-27] MEDS: Sulfamethox/Trimethoprim SUSP 800-160mg/20 ML UDC PO SCH (09:29)
[2022-12-27] MEDS ORDERED: Lidocaine 5% OINT TUBE TOPICAL PRN (11:45)
[2022-12-27] MEDS: cefTRIAXone 1 gm/50 mL D5W 1 GM/50 ML BAG IV SCH (13:00)
[2022-12-27] MEDS: KCL 20 MEQ/100 ML IVPREMIX 20 MEQ/100 ML BAG IV SCH ×2 (16:55→21:41)
[2022-12-27] MEDS ORDERED: Magnesium Sulfate 2 gm BAG 2 GM/50 ML BAG IVPB ONE (17:37)
[2022-12-28] MEDS: metroNIDAZOLE IV 500 MG/100ML 500 MG/100 ML BAG IVPB SCH ×2 (01:03→13:16)
[2022-12-28] MEDS: HYDROmorphone 0.5 MG/0.5 ML SYRINGE IV SLOW PU PRN (02:37)
[2022-12-28] MEDS: Fluconazole 400 MG IVPREMIX 400 MG/200 ML BAG IVPB SCH (06:11)
[2022-12-28] MEDS: Enoxaparin 40 MG/0.4 ML SYR SUBCUT SCH (06:11)
[2022-12-28 06:17] LABS: Hematocrit 31.7 % (35-45); Hemoglobin 10.7 g/dL (11.5-14.3); Mean Corpuscular Hemoglobin 31.1 pg (27-33); Mean Corpuscular Hgb Conc 33.9 g/dL (31-36); Mean Corpuscular Volume 91.9 fL (80-97); Mean Platelet Volume 8.7 fL (7.5-11.2); Platelet Count 215 10^3/uL (150-450); Red Blood Count 3.45 10^6/uL (3.63-4.92); Red Cell Distribution Width 13.2 % (12-17); White Blood Count 1.3 10^3/uL (3.8-11.8)
[2022-12-28 06:30] LABS: Calcium 9.5 mg/dL (8.6-10.3); Creatinine, Serum 0.92 mg/dL (0.51-0.95); Phosphorus 3.9 mg/dL (2.5-5.0); Potassium 3.9 mmol/L (3.5-5.0); eGFR CKD-EPI 76.3 (>60)
[2022-12-28] MEDS: hydrALAZINE 20 mg/ml 1 ML Vial IV IV SLOW PU PRN (06:33)
[2022-12-28 07:14] LABS: Platelet Morphology Large; RBC Morphology Normal (Normal)
[2022-12-28 07:16] LABS: ABS Eosinophils 0.1 10^3/uL (0.0-0.5); ABS Lymphocytes 0.4 10^3/uL (1.0-4.8); ABS Monocytes 0.5 10^3/uL (0.0-0.9); ABS Nucleated RBC 0.01 10^3/ul; Eosinophil % 11.2 %; Lymphocyte % 31.1 %; Nucleated Red Blood Cells % 0.6 /100 WBC (0.0-0.4)
[2022-12-28 07:24] LABS: ABS Neutrophils 0.2 10^3/uL (1.5-7.6)
[2022-12-28] MEDS: Magic MW-DIPH/MAG-AL-SIME/LIDO FIRST BLM KIT SWISH SPIT SCH ×3 (08:24→17:35)
[2022-12-28] MEDS: Chlorhexidine MOUTHWASH 0.12% 15 ML UDC SWISH SPIT SCH ×3 (08:24→21:32)
[2022-12-28] MEDS: Petroleum Jelly 1.75 Oz (small jar) TOPICAL SCH ×3 (08:25→21:35)
[2022-12-28] MEDS: Tenofovir/Emtricitab 300/200 MG TAB PO SCH (08:25)
[2022-12-28] MEDS: Pantoprazole VIAL 40 MG VIAL IV SCH (08:25)
[2022-12-28] MEDS: Sulfamethox/Trimethoprim SUSP 800-160mg/20 ML UDC PO SCH (08:26)
[2022-12-28] MEDS: RALTEGRAVIR 100 MG PO SCH ×2 (08:27→21:36)
[2022-12-28] MEDS: cefTRIAXone 1 gm/50 mL D5W 1 GM/50 ML BAG IV SCH (12:23)
[2022-12-28] MEDS: HYDROmorphone 1 MG/1 ML SYRINGE IV SLOW PU PRN ×2 (17:44→22:00)
[2022-12-29] MEDS: metroNIDAZOLE IV 500 MG/100ML 500 MG/100 ML BAG IVPB SCH ×2 (01:37→13:47)
[2022-12-29] MEDS: Enoxaparin 40 MG/0.4 ML SYR SUBCUT SCH (05:42)
[2022-12-29] MEDS: Fluconazole 400 MG IVPREMIX 400 MG/200 ML BAG IVPB SCH (05:42)
[2022-12-29 07:09] LABS: Hematocrit 32.4 % (35-45); Hemoglobin 10.8 g/dL (11.5-14.3); Mean Corpuscular Hgb Conc 33.3 g/dL (31-36); Mean Platelet Volume 9.1 fL (7.5-11.2); Platelet Count 209 10^3/uL (150-450); Red Blood Count 3.38 10^6/uL (3.63-4.92); Red Cell Distribution Width 13.1 % (12-17); White Blood Count 1.5 10^3/uL (3.8-11.8)
[2022-12-29 07:37] LABS: Hypochromasia 1+; Polychromasia 1+
[2022-12-29 07:38] LABS: ABS Eosinophils 0.2 10^3/uL (0.0-0.5); ABS Lymphocytes 0.5 10^3/uL (1.0-4.8); ABS Monocytes 0.5 10^3/uL (0.0-0.9); ABS Neutrophils 0.3 10^3/uL (1.5-7.6); ABS Nucleated RBC 0.02 10^3/ul; Eosinophil % 15.6 %; Lymphocyte % 32.2 %; Nucleated Red Blood Cells % 1.5 /100 WBC (0.0-0.4)
[2022-12-29 08:20] LABS: Calcium 9.1 mg/dL (8.6-10.3); Creatinine, Serum 0.98 mg/dL (0.51-0.95); Potassium 3.6 mmol/L (3.5-5.0); eGFR CKD-EPI 70.8 (>60)
[2022-12-29] MEDS: Magic MW-DIPH/MAG-AL-SIME/LIDO FIRST BLM KIT SWISH SPIT SCH ×3 (09:21→17:18)
[2022-12-29] MEDS: Chlorhexidine MOUTHWASH 0.12% 15 ML UDC SWISH SPIT SCH (09:23)
[2022-12-29] MEDS: Sulfamethox/Trimethoprim SUSP 800-160mg/20 ML UDC PO SCH (09:23)
[2022-12-29] MEDS: RALTEGRAVIR 100 MG PO SCH ×2 (09:24→21:37)
[2022-12-29] MEDS: Tenofovir/Emtricitab 300/200 MG TAB PO SCH (09:25)
[2022-12-29] MEDS: Pantoprazole VIAL 40 MG VIAL IV SCH (09:27)
[2022-12-29] MEDS: HYDROmorphone 0.5 MG/0.5 ML SYRINGE IV SLOW PU PRN ×2 (09:30→13:46)
[2022-12-29] MEDS: Petroleum Jelly 1.75 Oz (small jar) TOPICAL SCH ×3 (09:30→21:38)
[2022-12-29 11:16] LABS: Magnesium 1.9 mg/dL (1.9-2.7)
[2022-12-29] MEDS ORDERED: Sulfamethox/Trimethoprim DS TAB 800/160 mg PO SCH (12:00)
[2022-12-29] MEDS: cefTRIAXone 1 gm/50 mL D5W 1 GM/50 ML BAG IV SCH (12:55)
[2022-12-29 18:20] LABS: Ferritin 518.3 ng/mL (11-307)
[2022-12-29] MEDS: HYDROmorphone 1 MG/1 ML SYRINGE IV SLOW PU PRN (19:07)
[2022-12-29] MEDS ORDERED: Potassium Chloride LIQUID 20 MEQ/15 ML LIQUID PO ONE (19:27)
[2022-12-29] MEDS ORDERED: Magnesium Sulfate IV 1GM/100ML 1 GM/100 ML BAG IV ONE (19:29)
[2022-12-30] MEDS: metroNIDAZOLE IV 500 MG/100ML 500 MG/100 ML BAG IVPB SCH ×2 (00:31→13:22)
[2022-12-30] MEDS: Fluconazole 400 MG IVPREMIX 400 MG/200 ML BAG IVPB SCH (05:05)
[2022-12-30 06:43] LABS: Hematocrit 31.4 % (35-45); Hemoglobin 10.7 g/dL (11.5-14.3); Mean Corpuscular Hemoglobin 31.7 pg (27-33); Mean Corpuscular Hgb Conc 33.9 g/dL (31-36); Mean Corpuscular Volume 93.5 fL (80-97); Mean Platelet Volume 9.2 fL (7.5-11.2); Platelet Count 246 10^3/uL (150-450); Red Blood Count 3.36 10^6/uL (3.63-4.92); Red Cell Distribution Width 13.3 % (12-17); White Blood Count 2.4 10^3/uL (3.8-11.8)
[2022-12-30 06:56] LABS: Calcium 9.4 mg/dL (8.6-10.3); Creatinine, Serum 0.96 mg/dL (0.51-0.95); Phosphorus 3.6 mg/dL (2.5-5.0); Potassium 3.6 mmol/L (3.5-5.0); eGFR CKD-EPI 72.5 (>60)
[2022-12-30] MEDS: Sulfamethox/Trimethoprim SS TAB 400/80 mg PO SCH (08:12)
[2022-12-30] MEDS: Enoxaparin 40 MG/0.4 ML SYR SUBCUT SCH (08:15)
[2022-12-30] MEDS: Magic MW-DIPH/MAG-AL-SIME/LIDO FIRST BLM KIT SWISH SPIT SCH ×3 (08:15→18:48)
[2022-12-30] MEDS: Pantoprazole VIAL 40 MG VIAL IV SCH (08:16)
[2022-12-30] MEDS: RALTEGRAVIR 100 MG PO SCH ×2 (08:18→21:09)
[2022-12-30] MEDS: Tenofovir/Emtricitab 300/200 MG TAB PO SCH (08:19)
[2022-12-30 09:48] LABS: RBC Morphology Normal (Normal)
[2022-12-30 09:49] LABS: ABS Basophils 0.1 10^3/uL (0.0-0.1); ABS Eosinophils 0.4 10^3/uL (0.0-0.5); ABS Lymphocytes 0.7 10^3/uL (1.0-4.8); ABS Monocytes 0.7 10^3/uL (0.0-0.9); ABS Neutrophils 0.6 10^3/uL (1.5-7.6); ABS Nucleated RBC 0.01 10^3/ul; Eosinophil % 17.9 %; Lymphocyte % 27.3 %; Nucleated Red Blood Cells % 0.3 /100 WBC (0.0-0.4)
[2022-12-30] MEDS: Petroleum Jelly 1.75 Oz (small jar) TOPICAL SCH ×3 (12:28→21:11)
[2022-12-30] MEDS: HYDROmorphone 0.5 MG/0.5 ML SYRINGE IV SLOW PU PRN (15:15)
[2022-12-30] MEDS ORDERED: hydrALAZINE 20 mg/ml 1 ML Vial IV IV SLOW PU PRN (17:42)
[2022-12-31] MEDS: metroNIDAZOLE IV 500 MG/100ML 500 MG/100 ML BAG IVPB SCH ×2 (00:23→14:34)
[2022-12-31] MEDS ORDERED: Fluconazole 400 MG IVPREMIX 400 MG/200 ML BAG IVPB SCH (05:00)
[2022-12-31] MEDS ORDERED: Magic MW-DIPH/MAG-AL-SIME/LIDO FIRST BLM KIT SWISH SPIT ONE (05:32)
[2022-12-31] MEDS ORDERED: Magic MW-DIPH/MAG-AL-SIME/LIDO FIRST BLM KIT SWISH SPIT PRN (06:07)
[2022-12-31 06:16] LABS: Hematocrit 33.1 % (35-45); Hemoglobin 11.1 g/dL (11.5-14.3); Mean Corpuscular Hemoglobin 31.3 pg (27-33); Mean Corpuscular Hgb Conc 33.6 g/dL (31-36); Mean Platelet Volume 9.5 fL (7.5-11.2); Platelet Count 245 10^3/uL (150-450); Red Blood Count 3.56 10^6/uL (3.63-4.92); Red Cell Distribution Width 13.5 % (12-17); White Blood Count 3.1 10^3/uL (3.8-11.8)
[2022-12-31 06:36] LABS: Albumin 3.8 g/dL (3.2-5.2); Albumin/Globulin Ratio 1.1 (1-3); Calcium 9.7 mg/dL (8.6-10.3); Creatinine, Serum 1.19 mg/dL (0.51-0.95); Globulin 3.6 g/dL (2-4); Magnesium 1.9 mg/dL (1.9-2.7); Potassium 3.7 mmol/L (3.5-5.0); Total Bilirubin 0.3 mg/dL (0.2-1.0); Total Protein 7.4 g/dL (6.4-8.9); eGFR CKD-EPI 56.1 (>60)
[2022-12-31 06:56] LABS: ABS Basophils 0.1 10^3/uL (0.0-0.1); ABS Eosinophils 0.4 10^3/uL (0.0-0.5); ABS Lymphocytes 0.8 10^3/uL (1.0-4.8); ABS Monocytes 0.8 10^3/uL (0.0-0.9); ABS Nucleated RBC 0.01 10^3/ul; Eosinophil % 13.8 %; Lymphocyte % 26.1 %; Nucleated Red Blood Cells % 0.3 /100 WBC (0.0-0.4); RBC Morphology Normal (Normal)
[2022-12-31] MEDS ORDERED: Enoxaparin 40 MG/0.4 ML SYR SUBCUT SCH (09:00)
[2022-12-31] MEDS: Petroleum Jelly 1.75 Oz (small jar) TOPICAL SCH (09:24)
[2022-12-31] MEDS: Sulfamethox/Trimethoprim SS TAB 400/80 mg PO SCH (09:25)
[2022-12-31] MEDS: Tenofovir/Emtricitab 300/200 MG TAB PO SCH (09:25)
[2022-12-31] MEDS: RALTEGRAVIR 100 MG PO SCH (09:26)
[2022-12-31 10:16] VITALS: BP 126/77
[2023-01-01] MEDS ORDERED: Fluconazole ORAL.SUSP 40 MG/ML 35 ML BTL PO SCH (09:00)
== END 2022-12-31 16:15 | disposition home or self-care (01) | DRG 892 ==
LOC: ED 20:43 → EDHOLD 12-23 03:06 → SUATTDRO 12-23 03:06 → MEDTELE 12-23 16:11
PROVIDERS: ADMIT Hospitalist; ATTEND Internal Medicine

== ENCOUNTER 2023-05-05 07:23 | Inpatient (IN) ==
[2023-05-14] MEDS ORDERED: Senna TAB 8.6 mg TAB PO PRN (13:37)
[2023-05-14] MEDS ORDERED: Magnesium Hydroxide LIQ 30 ML UDC PO PRN (13:37)
[2023-05-14] MEDS: cefTRIAXone 2 gm/50 mL D5W 2 GM/50 ML BAG IV SCH (17:35)
[2023-05-15 07:15] LABS: ABS Eosinophils 0.1 10^3/uL (0.0-0.5); ABS Lymphocytes 0.3 10^3/uL (1.0-4.8); ABS Monocytes 0.3 10^3/uL (0.0-0.9); ABS Neutrophils 1.9 10^3/uL (1.5-7.6); Eosinophil % 4.7 %; Hemoglobin 7.1 g/dL (11.5-14.3); Lymphocyte % 12.9 %; Mean Corpuscular Hemoglobin 30.8 pg (27-33); Mean Corpuscular Hgb Conc 33.7 g/dL (31-36); Mean Corpuscular Volume 91.2 fL (80-97); Mean Platelet Volume 9.6 fL (7.5-11.2); Nucleated Red Blood Cells % 0.2 %/100WBC (0.0-0.8); Platelet Count 109 10^3/uL (150-450); Red Cell Distribution Width 16.4 % (12-17); White Blood Count 2.7 10^3/uL (3.8-11.8)
[2023-05-15 07:31] LABS: Albumin 2.6 g/dL (3.2-5.2); Albumin/Globulin Ratio 0.8 (1-3); Calcium 8.2 mg/dL (8.6-10.3); Creatinine, Serum 1.04 mg/dL (0.51-0.95); Globulin 3.3 g/dL (2-4); Potassium 3.4 mmol/L (3.5-5.0); Total Bilirubin 0.3 mg/dL (0.2-1.0); Total Protein 5.9 g/dL (6.4-8.9); eGFR CKD-EPI 65.9 (>60)
[2023-05-15] MEDS ORDERED: Al Hydrox/Mg Hydrox/Simet LIQ 30 ML UDC PO ONE (08:33)
[2023-05-15] MEDS ORDERED: Influenza vaccine *QUAD* *2023-24* 0.5 ML SYRINGE IM ONE (09:00)
[2023-05-15] MEDS: Nicotine PATCH 21 MG/24 HR PATCH TRANSDERM SCH (09:26)
[2023-05-15] MEDS: Sulfamethox/Trimethoprim SS TAB 400/80 mg PO SCH (09:28)
[2023-05-15] MEDS: NF:Bictegravir/Emtricit/Tenofov 1 TABLET PO SCH (09:35)
[2023-05-15 11:49] LABS: High Sensitivity Troponin 3 Hr 7 pg/mL (<15)
[2023-05-15] MEDS: cefTRIAXone 2 gm/50 mL D5W 2 GM/50 ML BAG IV SCH (17:38)
[2023-05-15] MEDS: Potassium Chlor 20 meq TAB.ER PO SCH (21:53)
[2023-05-16 07:38] LABS: ABS Eosinophils 0.1 10^3/uL (0.0-0.5); ABS Lymphocytes 0.5 10^3/uL (1.0-4.8); ABS Monocytes 0.4 10^3/uL (0.0-0.9); ABS Neutrophils 1.7 10^3/uL (1.5-7.6); ABS Nucleated RBC 0.01 10^3/ul; Eosinophil % 4.9 %; Hematocrit 22.7 % (35-45); Hemoglobin 7.6 g/dL (11.5-14.3); Lymphocyte % 17.3 %; Mean Corpuscular Hemoglobin 30.5 pg (27-33); Mean Corpuscular Hgb Conc 33.5 g/dL (31-36); Mean Platelet Volume 9.2 fL (7.5-11.2); Nucleated Red Blood Cells % 0.4 %/100WBC (0.0-0.8); Platelet Count 142 10^3/uL (150-450); Red Cell Distribution Width 16.1 % (12-17); White Blood Count 2.7 10^3/uL (3.8-11.8)
[2023-05-16] MEDS: NF:Bictegravir/Emtricit/Tenofov 1 TABLET PO SCH (08:49)
[2023-05-16] MEDS: Sulfamethox/Trimethoprim SS TAB 400/80 mg PO SCH (08:53)
[2023-05-16] MEDS: Nicotine PATCH 21 MG/24 HR PATCH TRANSDERM SCH (08:54)
[2023-05-16] MEDS: Potassium Chlor 20 meq TAB.ER PO SCH ×2 (08:54→20:40)
[2023-05-16] MEDS: cefTRIAXone 2 gm/50 mL D5W 2 GM/50 ML BAG IV SCH (17:13)
[2023-05-16] MEDS ORDERED: Al Hydrox/Mg Hydrox/Simet LIQ 30 ML UDC PO PRN (21:21)
[2023-05-17] MEDS: Sulfamethox/Trimethoprim SS TAB 400/80 mg PO SCH (10:03)
[2023-05-17] MEDS: Potassium Chlor 20 meq TAB.ER PO SCH (10:04)
[2023-05-17] MEDS: Nicotine PATCH 21 MG/24 HR PATCH TRANSDERM SCH (10:04)
[2023-05-17] MEDS: NF:Bictegravir/Emtricit/Tenofov 1 TABLET PO SCH (10:20)
[2023-05-17] MEDS: cefTRIAXone 2 gm/50 mL D5W 2 GM/50 ML BAG IV SCH (17:34)
[2023-05-17] MEDS: Heparin 5000 UNITS/ML 1 mL VIAL SUBCUT SCH (21:49)
[2023-05-18] MEDS: Heparin 5000 UNITS/ML 1 mL VIAL SUBCUT SCH ×3 (05:30→21:40)
[2023-05-18 05:54] LABS: Hematocrit 21.1 % (35-45); Hemoglobin 7.1 g/dL (11.5-14.3); Mean Corpuscular Hemoglobin 30.7 pg (27-33); Mean Corpuscular Hgb Conc 33.7 g/dL (31-36); Mean Corpuscular Volume 91.2 fL (80-97); Mean Platelet Volume 8.1 fL (7.5-11.2); Platelet Count 198 10^3/uL (150-450); Red Blood Count 2.31 10^6/uL (3.63-4.92); Red Cell Distribution Width 16.3 % (12-17); White Blood Count 2.1 10^3/uL (3.8-11.8)
[2023-05-18 08:03] LABS: ABS Basophils 0.1 10^3/uL (0.0-0.1); ABS Eosinophils 0.1 10^3/uL (0.0-0.5); ABS Lymphocytes 0.5 10^3/uL (1.0-4.8); ABS Monocytes 0.3 10^3/uL (0.0-0.9); ABS Neutrophils 1.1 10^3/uL (1.5-7.6); ABS Nucleated RBC 0.01 10^3/ul; Eosinophil % 4.4 %; Lymphocyte % 25.1 %; Nucleated Red Blood Cells % 0.4 %/100WBC (0.0-0.8)
[2023-05-18] MEDS: Sulfamethox/Trimethoprim SS TAB 400/80 mg PO SCH (10:25)
[2023-05-18] MEDS: Nicotine PATCH 21 MG/24 HR PATCH TRANSDERM SCH (10:26)
[2023-05-18] MEDS: NF:Bictegravir/Emtricit/Tenofov 1 TABLET PO SCH (10:30)
[2023-05-18] MEDS ORDERED: Iohexol 350 (CONTRAST) 500 ML MDV IV ONE (16:33)
[2023-05-18] MEDS: cefTRIAXone 2 gm/50 mL D5W 2 GM/50 ML BAG IV SCH (17:37)
[2023-05-19] MEDS: Heparin 5000 UNITS/ML 1 mL VIAL SUBCUT SCH ×3 (06:40→21:58)
[2023-05-19 07:32] LABS: Hemoglobin 6.8 g/dL (11.5-14.3); Mean Corpuscular Hgb Conc 32.4 g/dL (31-36); Mean Corpuscular Volume 95.5 fL (80-97); Mean Platelet Volume 9.3 fL (7.5-11.2); Platelet Count 266 10^3/uL (150-450); Red Blood Count 2.19 10^6/uL (3.63-4.92); Red Cell Distribution Width 18.7 % (12-17); White Blood Count 1.9 10^3/uL (3.8-11.8)
[2023-05-19 08:19] LABS: ABS Basophils 0.1 10^3/uL (0.0-0.1); ABS Eosinophils 0.1 10^3/uL (0.0-0.5); ABS Lymphocytes 0.6 10^3/uL (1.0-4.8); ABS Monocytes 0.2 10^3/uL (0.0-0.9); ABS Nucleated RBC 0.02 10^3/ul; Eosinophil % 2.9 %; Lymphocyte % 29.9 %; Nucleated Red Blood Cells % 0.9 %/100WBC (0.0-0.8)
[2023-05-19] MEDS: Sulfamethox/Trimethoprim SS TAB 400/80 mg PO SCH (08:57)
[2023-05-19] MEDS: NF:Bictegravir/Emtricit/Tenofov 1 TABLET PO SCH (08:58)
[2023-05-19] MEDS: Nicotine PATCH 21 MG/24 HR PATCH TRANSDERM SCH (09:03)
[2023-05-19] MEDS: cefTRIAXone 2 gm/50 mL D5W 2 GM/50 ML BAG IV SCH (20:25)
[2023-05-20] MEDS: Heparin 5000 UNITS/ML 1 mL VIAL SUBCUT SCH ×3 (06:16→21:28)
[2023-05-20] MEDS: Sulfamethox/Trimethoprim SS TAB 400/80 mg PO SCH (08:57)
[2023-05-20] MEDS: Nicotine PATCH 21 MG/24 HR PATCH TRANSDERM SCH (09:09)
[2023-05-20] MEDS: NF:Bictegravir/Emtricit/Tenofov 1 TABLET PO SCH (09:12)
[2023-05-20] MEDS: cefTRIAXone 2 gm/50 mL D5W 2 GM/50 ML BAG IV SCH (18:03)
[2023-05-21] MEDS: Heparin 5000 UNITS/ML 1 mL VIAL SUBCUT SCH ×2 (05:31→14:01)
[2023-05-21 05:50] LABS: Hematocrit 25.7 % (35-45); Hemoglobin 8.7 g/dL (11.5-14.3); Mean Corpuscular Hemoglobin 30.7 pg (27-33); Mean Corpuscular Volume 90.4 fL (80-97); Mean Platelet Volume 7.5 fL (7.5-11.2); Platelet Count 272 10^3/uL (150-450); Red Blood Count 2.84 10^6/uL (3.63-4.92); Red Cell Distribution Width 16.2 % (12-17); White Blood Count 1.5 10^3/uL (3.8-11.8)
[2023-05-21 06:30] LABS: ABS Basophils 0.1 10^3/uL (0.0-0.1); ABS Eosinophils 0.1 10^3/uL (0.0-0.5); ABS Lymphocytes 0.5 10^3/uL (1.0-4.8); ABS Monocytes 0.3 10^3/uL (0.0-0.9); ABS Neutrophils 0.5 10^3/uL (1.5-7.6); Eosinophil % 4.5 %; Lymphocyte % 35.6 %; Nucleated Red Blood Cells % 0.1 %/100WBC (0.0-0.8)
[2023-05-21] MEDS: Nicotine PATCH 21 MG/24 HR PATCH TRANSDERM SCH (11:01)
[2023-05-21] MEDS: Sulfamethox/Trimethoprim SS TAB 400/80 mg PO SCH (11:04)
[2023-05-21] MEDS: NF:Bictegravir/Emtricit/Tenofov 1 TABLET PO SCH (11:05)
[2023-05-22 05:46] VITALS: BP 124/87
[2023-05-22 06:43] LABS: Hematocrit 25.9 % (35-45); Hemoglobin 8.8 g/dL (11.5-14.3); Mean Corpuscular Hemoglobin 30.8 pg (27-33); Mean Corpuscular Hgb Conc 34.2 g/dL (31-36); Mean Corpuscular Volume 90.1 fL (80-97); Mean Platelet Volume 7.5 fL (7.5-11.2); Platelet Count 290 10^3/uL (150-450); Red Blood Count 2.87 10^6/uL (3.63-4.92); Red Cell Distribution Width 15.7 % (12-17); White Blood Count 1.5 10^3/uL (3.8-11.8)
[2023-05-22 07:03] LABS: Albumin 3.2 g/dL (3.2-5.2); Albumin/Globulin Ratio 0.8 (1-3); Calcium 9.3 mg/dL (8.6-10.3); Creatinine, Serum 0.94 mg/dL (0.51-0.95); Globulin 3.9 g/dL (2-4); Potassium 3.9 mmol/L (3.5-5.0); Total Bilirubin 0.3 mg/dL (0.2-1.0); Total Protein 7.1 g/dL (6.4-8.9); eGFR CKD-EPI 74.4 (>60)
[2023-05-22] MEDS: NF:Bictegravir/Emtricit/Tenofov 1 TABLET PO SCH (08:19)
[2023-05-22] MEDS: Sulfamethox/Trimethoprim SS TAB 400/80 mg PO SCH (08:22)
[2023-05-22] MEDS: Nicotine PATCH 21 MG/24 HR PATCH TRANSDERM SCH (08:23)
[2023-05-22 08:39] LABS: ABS Basophils 0.1 10^3/uL (0.0-0.1); ABS Eosinophils 0.1 10^3/uL (0.0-0.5); ABS Lymphocytes 0.5 10^3/uL (1.0-4.8); ABS Monocytes 0.4 10^3/uL (0.0-0.9); ABS Neutrophils 0.5 10^3/uL (1.5-7.6); ABS Nucleated RBC 0.01 10^3/ul; Eosinophil % 4.8 %; Lymphocyte % 33.3 %; Nucleated Red Blood Cells % 0.4 %/100WBC (0.0-0.8)
== END 2023-05-22 15:55 | disposition home or self-care (01) | DRG 44 ==
LOC: PMRU 05-14 13:14
PROVIDERS: ADMIT Physical Medicine & Rehabilitation; ATTEND Physical Medicine & Rehabilitation